=== PATIENT | male | born 1960 | race African-American/Black ===

== ENCOUNTER 2018-06-30 08:26 | Emergency (ER) | payer OTHER ==
--- OUTSIDE RECORDS SUMMARY | 2018-06-30 08:58 | XMS REPORT ---
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
--- OUTSIDE RECORDS SUMMARY | 2018-06-30 08:58 | XMS REPORT ---
:1960 Author Organization eClinicalWorks Care Team Providers Name Role Phone Malia Marcosy Provider Role Unavailable Allergies, Adverse Reactions, Alerts Substance Reaction Event Type Sulfa Rash Drug Allergy Problems Problem Type Condition Code Onset Dates Condition Status Assessment Unspecified fracture of T11-T12 S22.089K Active vertebra, subsequent encounter for fracture with nonunion Assessment Essential hypertension I10 Active Problem Essential hypertension I10 Active Problem Hyperlipidemia, unspecified E78.5 Active Problem Spinal cord injury 952.9 Active Problem Unspecified fracture of T11-T12 S22.089K Active vertebra, subsequent encounter for fracture with nonunion Problem Paralysis G83.9 Active Problem Neuropathy, peripheral G62.9 Active Problem Flaccid neuropathic bladder, 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
--- NOTE | 2018-06-30 09:41 | EDPHYS ---
Physician Documentation [facility] Name: Rogelio Pringle Age: 57 yrs Sex: Male : 1960 Arrival Date: 06/30/2018 Time: 08:30 Bed 17 Private MD: IGOR VAZ ED Physician Caleb Sauceda HPI: 06/30 09:00 This 57 yrs old Black Male presents to ER via Wheelchair with complaints of Flu pm1 Symptoms. 09:00 Onset: The symptoms/episode began/occurred 3 day(s) ago. Associated signs and symptoms: pm1 Pertinent positives: sore throat, Runny nose, Pertinent negatives: abdominal pain, chest pain, cough, fever, shortness of breath. Modifying factors: The patient symptoms are alleviated by nothing, the patient symptoms are aggravated by nothing. The patient has not recently seen a physician. Historical: - Allergies: 08:41 No Known Allergies; sv - PMHx: 08:41 Hypertension; High Cholesterol; chronic pain in BLE; sv - PSHx: 08:41 hip surgery; back surgery; sv - Immunization history:: Flu vaccine is not up to date. - Social history:: Smoking status: Patient uses tobacco products, smokes one-half pack cigarettes per day, Patient uses alcohol, on a daily basis. - Ebola Screening: : No symptoms or risks identified at this time. ROS: 09:00 Constitutional: Negative for fever, chills, and weight loss, Eyes: Negative for injury, pm1 pain, redness, and discharge. 09:00 Neck: Negative for injury, pain, and swelling, Cardiovascular: Negative for chest pain, palpitations, and edema, Respiratory: Negative for shortness of breath, cough, wheezing, and pleuritic chest pain, Abdomen/GI: Negative for abdominal pain, nausea, vomiting, diarrhea, and constipation, Back: Negative for injury and pain, : Negative for injury, bleeding, discharge, and swelling, MS/Extremity: Negative for injury and deformity, Skin: Negative for injury, rash, and discoloration, Neuro: Negative for headache, weakness, numbness, tingling, and seizure. 09:00 ENT: Positive for rhinorrhea, sore throat. Exam: 09:00 Constitutional: This is a well developed, well nourished patient who is awake, alert, pm1 and in no acute distress. Head/Face: Normocephalic, atraumatic. Eyes: Pupils equal round and reactive to light, extra-ocular motions intact. Lids and lashes normal. Conjunctiva and sclera are non-icteric and not injected. Cornea within normal limits. Periorbital areas with no swelling, redness, or edema. ENT: Nares patent. No nasal discharge, no septal abnormalities noted. Tympanic membranes are normal and external auditory canals are clear. Oropharynx with no redness, swelling, or masses, exudates, or evidence of obstruction, uvula midline. Mucous membranes moist. Neck: Trachea midline, no thyromegaly or masses palpated, and no cervical lymphadenopathy. Supple, full range of motion without nuchal rigidity, or vertebral point tenderness. No Meningismus. Chest/axilla: Normal chest wall appearance and motion. Nontender with no deformity. No lesions are appreciated. Cardiovascular: Regular rate and rhythm with a normal S1 and S2. No gallops, murmurs, or rubs. Normal PMI, no JVD. No pulse deficits. Respiratory: Lungs have equal breath sounds bilaterally, clear to auscultation and percussion. No rales, rhonchi or wheezes noted. No increased work of breathing, no retractions or nasal flaring. Abdomen/GI: Soft, non-tender, with normal bowel sounds. No distension or tympany. No guarding or rebound. No evidence of tenderness throughout. Back: No spinal tenderness. No costovertebral tenderness. Full range of motion. Skin: Warm, dry with normal turgor. Normal color with no rashes, no lesions, and no evidence of cellulitis. MS/ Extremity: Pulses equal, no cyanosis. Neurovascular intact. Full, normal range of motion. 09:00 Neuro: Orientation: is normal, Motor: moves all fours. Vital Signs: 08:41 BP 183 / 98; Pulse 88; Resp 18; Temp 98.8; Pulse Ox 98% ; Weight 77.11 kg; Height 5 ft. sv 9 in. (175.26 cm); Pain 0/10; 08:41 Body Mass Index 25.10 (77.11 kg, 175.26 cm) sv MDM: 08:36 Patient medically screened. pm1 09:37 Data reviewed: vital signs. Data interpreted: Pulse oximetry: on room air is 98 %. pm1 Interpretation: normal. Counseling: I had a detailed discussion with the patient and/or guardian regarding: the historical points, exam findings, and any diagnostic results supporting the discharge/admit diagnosis, lab results, the need for outpatient follow up, to return to the emergency department if symptoms worsen or persist or if there are any questions or concerns that arise at home. 06/30 08:44 Order name: Flu; Complete Time: 09:40 sv 06/30 08:44 Order name: Strep; Complete Time: :40 sv 06/30 09:06 Order name: Throat Culture EDMS Administered Medications: No medications were administered Disposition: 06/30/18 09:40 Discharged to Home. Impression: Acute nasopharyngitis [common cold]. - Condition is Stable. - Discharge Instructions: Antibiotic Resistance, Upper Respiratory Infection, Adult, Viral Respiratory Infection. - Medication Reconciliation Form, Thank You Letter, Antibiotic Education form. - Follow up: Emergency Department; When: As needed; Reason: Worsening of condition. Follow up: Private Physician; When: 2 - 3 days; Reason: Recheck today's complaints, Continuance of care, Re-evaluation by your physician. - Problem is new. - Symptoms have improved. Addendum: 07/16/2018 15:26 Co-signature as Attending Physician, Caleb Sauceda MD I agree with the assessment and w a plan of care. Signatures: Dispatcher [employer] EDJeanette Pastor, RN RN Jean Paul Goldstein, PRODUCTION SCHEDULER PRODUCTION SCHEDULER pm1 Caleb Sauceda MD MD nj Corrections: (The following items were deleted from the chart) 06/30 10:06 09:40 06/30/2018 09:40 Discharged to Home. Impression: Acute nasopharyngitis [common sv cold]. Condition is Stable. Forms are Medication Reconciliation Form, Thank You Letter, Antibiotic Education, Prescription Opioid Use. Follow up: Emergency Department; When: As needed; Reason: Worsening of condition. Follow up: Private Physician; When: 2 - 3 days; Reason: Recheck today's complaints, Continuance of care, Re-evaluation by your physician. Problem is new. Symptoms have improved. pm1
--- NOTE | 2018-06-30 09:41 | ER ---
Nurse's Notes [facility] Name: Rogelio Pringle Age: 57 yrs Sex: Male : 1960 Arrival Date: 06/30/2018 Time: 08:30 Bed 17 Private MD: IGOR VAZ Diagnosis: Acute nasopharyngitis [common cold] Presentation: 06/30 08:31 Presenting complaint: Patient states: sore throat, hoarse voice and decreased appetite sv since Friday. Transition of care: patient was not received from another setting of care. Onset of symptoms was June 27, 2018. Risk Assessment: Do you want to hurt yourself or someone else? Patient reports no desire to harm self or others. Initial Sepsis Screen: Does the patient meet any 2 criteria? No. Patient's initial sepsis screen is negative. Does the patient have a suspected source of infection? No. Patient's initial sepsis screen is negative. Care prior to arrival: Medication(s) given: throat lozenges and Robitussin. 08:31 Method Of Arrival: Wheelchair sv 08:31 Acuity: ROSA 4 sv Triage Assessment: 08:31 General: Appears in no apparent distress. comfortable, Behavior is calm, cooperative, sv appropriate for age. Pain: Denies pain. EENT: Reports nasal discharge pain in left aspect of posterior pharynx and right aspect of posterior pharynx. Neuro: Level of Consciousness is awake, alert, obeys commands, Oriented to person, place, time, situation. Respiratory: Respiratory effort is even, unlabored, Respiratory pattern is regular, symmetrical. Derm: Skin is pink, warm \T\ dry. Historical: - Allergies: 08:41 No Known Allergies; sv - PMHx: 08:41 Hypertension; High Cholesterol; chronic pain in BLE; sv - PSHx: 08:41 hip surgery; back surgery; sv - Immunization history:: Flu vaccine is not up to date. - Social history:: Smoking status: Patient uses tobacco products, smokes one-half pack cigarettes per day, Patient uses alcohol, on a daily basis. - Ebola Screening: : No symptoms or risks identified at this time. Screenin:42 Abuse screen: Denies threats or abuse. Denies injuries from another. Nutritional sv screening: No deficits noted. Tuberculosis screening: No symptoms or risk factors identified. Fall Risk None identified. Assessment: 09:15 Reassessment: Patient appears in no apparent distress at this time. No changes from sv previously documented assessment. Patient and/or family updated on plan of care and expected duration. Pain level reassessed. Patient is alert, oriented x 3, equal unlabored respirations, skin warm/dry/pink. Pt given a cup of water. 10:06 Reassessment: Patient appears in no apparent distress at this time. No changes from sv previously documented assessment. Patient and/or family updated on plan of care and expected duration. Pain level reassessed. Patient is alert, oriented x 3, equal unlabored respirations, skin warm/dry/pink. Vital Signs: 08:41 BP 183 / 98; Pulse 88; Resp 18; Temp 98.8; Pulse Ox 98% ; Weight 77.11 kg; Height 5 ft. sv 9 in. (175.26 cm); Pain 0/10; 08:41 Body Mass Index 25.10 (77.11 kg, 175.26 cm) sv ED Course: 08:30 Patient arrived in ED. rg4 08:30 IGOR VAZ is Private Physician. rg4 08:31 Arm band placed on Patient placed in an exam room. sv 08:35 Jean [facility] Goldstein [facility] pm1 08:35 Caleb Sauceda MD is Attending Physician. pm1 08:39 Jeanette Leach RN is Primary Nurse. sv 08:41 Triage completed. sv 08:42 Nurse Practitioner and/or Physician Customer Service Officer to see patient. sv 08:42 Patient has correct armband on for positive identification. Call light in reach. Door sv closed. 08:49 Flu and/or RSV swab sent to lab. Strep swab sent to lab. sv 10:06 No provider procedures requiring assistance completed. Patient did not have IV access sv during this emergency room visit. Administered Medications: No medications were administered Outcome: 09:40 Discharge ordered by MD. pm1 10:06 Discharged to home via wheelchair. sv 10:06 Condition: stable 10:06 Discharge instructions given to patient, Instructed on discharge instructions, follow up and referral plans. Demonstrated understanding of instructions, follow-up care. 10:06 Patient left the ED. sv Signatures: Jeanette Leach RN RN sv Jean Paul Goldstein NP PACKAGING DESIGN ENGINEER pm1 Kasandra Lauren rg4
== END 2018-06-30 10:06 | disposition home or self-care (01) ==
LOC: ER 08:26
DX: J00 Acute nasopharyngitis [common cold] (principal); I10 Essential (primary) hypertension; F17.210 Nicotine dependence, cigarettes, uncomplicated
CPT/HCPCS: 87070; 87081; 87804; 99283

== ENCOUNTER 2019-09-04 10:51 | Emergency (ER) | payer OTHER ==
--- OUTSIDE RECORDS SUMMARY | 2019-09-04 10:54 | XMS REPORT ---
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 Assessment Essential hypertension I10 Active Assessment Screening for prostate cancer Z12.5 Active Assessment Hyperlipidemia, unspecified E78.5 Active Assessment Injury at T11-T12 level of S24.104S Active thoracic spinal cord, sequela Problem Essential hypertension I10 Active Problem Hyperlipidemia, unspecified E78.5 Active Problem Injury at T11-T12 level of S24.104S Active thoracic spinal cord, sequela Problem Unspecified fracture of T11-T12 S22.089K Active vertebra, subsequent encounter for fracture with nonunion Problem Paralysis G83.9 Active Problem Neuropathy, peripheral G62.9 Active Problem Flaccid neuropathic bladder, 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 Medications Medication Code Code Instructions Start End Status Dosage System Date Date Enalapril [facility] 44767796244 20 MG Orally Active 1 tab Maleate Twice a day Gabapentin [facility] [address]-16 400 MG Orally Active 1 tablet Three times a day Pravastatin [facility] 27010547212 40 MG Orally Active take one Sodium Once a day in tablet by evening mouth once daily at bedtime Norvasc [facility] 01852387972 5 MG Orally January 28, Active 1 tablet Once a day 2018 Results No Known Results Summary Purpose eClinicalWorks Submission
--- OUTSIDE RECORDS SUMMARY | 2019-09-04 10:54 | XMS REPORT ---
:1960 Author Organization eClinicalWorks Care Team Providers Name Role Phone Nata Marcos Provider Role Unavailable Allergies No Known [...] Medications Medication Code System Code Instructions Start End Date Status Dosage Date Gabapentin [facility] 05619734637 400 MG Orally Active 1 capsule three times a day Results No Known Results Summary Purpose eClinicalWorks Submission
[2019-09-04 11:44] LABS: Absolute Lymphocytes (CBC) 1.6 K/uL (0.7-4.9); Basophils % 0.4 % (0-1.3); Hematocrit 42.4 % (39.6-49.0); Lymphocytes % 11.9 % (15.3-44.8); MPV 7.9 fL (7.6-11.3); RBC Red Blood Cell Count 4.54 M/uL (4.33-5.43)
[2019-09-04] MEDS ORDERED: NA CHLORIDE 0.9% 1,000 ML ONE (11:47)
[2019-09-04] MEDS ORDERED: ACETAMINOPHEN 500 MG TAB ONE (11:47)
[2019-09-04 11:50] LABS: BUN Blood Urea Nitrogen 8 mg/dL (7-18); Bicarbonate 27 mmol/L (21-32); Glucose Level 112 mg/dL (74-106); Potassium 3.4 mmol/L (3.5-5.1); Sodium Level 134 mmol/L (136-145)
[2019-09-04] MEDS ORDERED: CEFTRIAXONE/SWI 1gm 1 GM/10 ML SYR ONE (14:26)
[2019-09-04 14:41] LABS: Urine Bacteria LOADED /HPF (NONE SEEN); Urine Culture Reflex Order REFLEXED; Urine RBC <5 /HPF (NONE SEEN)
--- NOTE | 2019-09-04 15:38 | RAD REPORT ---
EXAM DESCRIPTION: CT - Abdomen Pelvis W Contrast - 09/04/2019 3:10 pm CLINICAL HISTORY: and pain, abdominal pain symptoms of UTI, cloudy urine COMPARISON: No comparisons TECHNIQUE: Biphasic, helical CT imaging of the abdomen and pelvis was performed following 100 ml non -ionic IV contrast. No oral contrast given. All CT scans are performed using dose optimization technique as appropriate and may include automated exposure control or mA/KV adjustment according to patient size. FINDINGS: No suspicious findings in the lung bases. The liver, spleen, and pancreas show no suspicious findings. Gallbladder and biliary tree are also wi thout suspicious finding. Symmetric renal function is seen with no hydronephrosis or suspicious renal mass. No pyelonephritis o r acute parenchymal process. No obstructing calculi seen. No adrenal abnormalities. Thickened, nodula r jose of the urinary bladder are seen. Patient may have a neurogenic bladder. Baseline for the marycarmen ent is unknown. Cystitis is certainly possible. There is no air within the urinary bladder. No dilated bowel loops or bowel wall thickening. No acute GI process is seen. Patient has a minimal h iatal hernia. No free air, free fluid or inflammatory stranding. No mass or bulky lymphadenopathy. R ight inguinal hernia is present. Bowel extends into the origin of the hernia. There is no active jose cruz l or hernia finding. The appendix is normal. No acute bone finding identifiable. IMPRESSION: Thickened nodular urinary bladder jose probably baseline. No air within the bladder lum en. Cystitis is certainly possible. No CT findings for pyelonephritis.
--- NOTE | 2019-09-04 16:12 | ER ---
Nurse's Notes [facility] Name: Rogelio Pringle Age: 58 yrs Sex: Male : 1960 Arrival Date: 09/04/2019 Time: 10:53 Bed 18 Private MD: IGOR VAZ Diagnosis: Urinary tract infection, site not specified Presentation: 09/04 11:15 Presenting complaint: Patient states: feels like he has a UTI, pt is paraplegic , self iw caths at home, noticed his urine was cloudy and had a smell over past 3-4 days, started having pain at urethral site yesterday also feels like he's got chills-. Transition of care: patient was not received from another setting of care. Onset of symptoms was August 31, 2019. Risk Assessment: Do you want to hurt yourself or someone else? Patient reports no desire to harm self or others. Initial Sepsis Screen: Does the patient meet any 2 criteria? Temp <36.0*C (96.8*F)) or > 38.3*C (100.9*F). HR > 90 bpm. Does the patient have a suspected source of infection? Yes: Dysuria/Frequency/Urgency/UTI Catheter related infection (Esparza/dialysis/PICC/central line). Care prior to arrival: None. 11:15 Method Of Arrival: Wheelchair iw 11:15 Acuity: ROSA 2 iw Historical: - Allergies: 11:21 Sulfa (Sulfonamide Antibiotics); iw - Home Meds: 11:21 gabapentin oral oral [Active]; Enalapril Oral [Active]; unknown BP medicine [Active]; iw - PMHx: 11:21 chronic pain in BLE; High Cholesterol; Hypertension; paraplegic s/p back injury; iw - PSHx: 11:21 back; iw - Immunization history:: Adult Immunizations not up to date. - Coronavirus screen:: The patient has NOT traveled to [place] in the past 14 days. Proceed with normal triage process as indicated. - Social history:: Smoking status: Patient denies any tobacco usage or history of. - Family history:: not pertinent. - Ebola Screening: : Patient negative for fever greater than or equal to 101.5 degrees Fahrenheit, and additional compatible Ebola Virus Disease symptoms Patient denies exposure to infectious person Patient denies travel to an Ebola-affected area in the 21 days before illness onset No symptoms or risks identified at this time. - Hospitalizations: : No recent hospitalization is reported. Screenin:07 Abuse screen: Denies threats or abuse. Nutritional screening: No deficits noted. rb1 Tuberculosis screening: No symptoms or risk factors identified. Fall Risk No fall in past 12 months (0 pts). Secondary diagnosis (15 points) impaired mobility, IV access (20 points). Ambulatory Aid- Crutches/Cane/Walker (15 pts). Gait- Impaired (20 pts.). Mental Status- Oriented to own ability (0 pts). Total Daven[place] Fall Scale indicates High Risk Score (45 or more points). Fall prevention measures have been instituted. Side Rails Up X 2 Placed Close to Nursing Station 1:1 Attendant Assigned Frequent Obs/Assessments Occuring As available patient and family educated on Fall Prevention Program and Strategies. Assessment: 11:07 General: Appears in no apparent distress. comfortable, Behavior is calm, cooperative, rb1 Reports chills for >3 days, Denies fever. Pain: Complains of pain in back and urethra Pain currently is 3 out of 10 on a pain scale. Neuro: Level of Consciousness is awake, alert, obeys commands, Oriented to person, place, time, situation. Cardiovascular: Capillary refill < 3 seconds is brisk in bilateral fingers. Respiratory: Airway is patent Respiratory effort is even, unlabored, Respiratory pattern is regular, symmetrical. GI: Bowel sounds present X 4 quads. Abd is non tender. : Parent/caregiver report the patient having self catheterizes at home. Pt. reports that his urine has a foul odor and is cloudy. He suspects a UTI. Derm: Skin is dry, Skin is normal, Skin temperature is hot. Musculoskeletal: Paraplegic. 12:07 Reassessment: Patient appears in no apparent distress at this time. No changes from rb1 previously documented assessment. 13:30 Reassessment: Patient appears in no apparent distress at this time. Patient and/or rb1 family updated on plan of care and expected duration. Pain level reassessed. Patient is alert, oriented x 3, equal unlabored respirations, skin warm/dry/pink. 14:37 Reassessment: Patient appears in no apparent distress at this time. Patient and/or rb1 family updated on plan of care and expected duration. Pain level reassessed. Patient is alert, oriented x 3, equal unlabored respirations, skin warm/dry/pink. Pt. is watching TV. 15:20 Reassessment: Patient appears in no apparent distress at this time. No changes from rb1 previously documented assessment. 16:20 Reassessment: Patient appears in no apparent distress at this time. Patient and/or rb1 family updated on plan of care and expected duration. Pain level reassessed. Patient is alert, oriented x 3, equal unlabored respirations, skin warm/dry/pink. Vital Signs: 11:21 BP 137 / 80; Pulse 117; Resp 18 S; Temp 102.5; Pulse Ox 98% on R/A; Weight 77.11 kg; iw Height 5 ft. 8 in. (172.72 cm); Pain 0/10; 12:20 BP 158 / 94; Pulse 109; Resp 19; Pulse Ox 99% on R/A; rb1 12:23 Temp 101.9(O); rb1 13:23 BP 146 / 87; Pulse 105; Resp 17; Pulse Ox 99% on R/A; rb1 14:23 BP 145 / 72; Pulse 103; Resp 18; Temp 98.7(O); Pulse Ox 98% ; rb1 15:20 BP 137 / 85; Pulse 101; Resp 19; Pulse Ox 99% on R/A; rb1 16:20 BP 134 / 73; Pulse 100; Resp 17; Pulse Ox 98% on R/A; rb1 11:21 Body Mass Index 25.85 (77.11 kg, 172.72 cm) iw ED Course: 10:53 Patient arrived in ED. ag5 10:54 IGOR VAZ is Private Physician. ag5 11:07 Patient has correct armband on for positive identification. Bed in low position. Call rb1 light in reach. Side rails up X2. campus monitor on. Pulse ox on. NIBP on. 11:14 Luisito Monson MD is Attending Physician. rn 11:19 Triage completed. iw 11:21 Arm band placed on. iw 11:40 Flor Kelley, RN is Primary Nurse. rb1 11:40 Second set of blood cultures drawn by ca. Inserted saline lock: 20 gauge in left em1 antecubital area, using aseptic technique. Blood collected. 15:10 CT completed. Patient tolerated procedure well. Patient moved back from CT. mw3 16:33 No provider procedures requiring assistance completed. IV discontinued, intact, rb1 bleeding controlled, No redness/swelling at site. Pressure dressing applied. Administered Medications: 11:44 Drug: Tylenol 1000 mg Route: PO; rb1 12:23 Follow up: Response: No adverse reaction; Temperature is decreased rb1 11:46 Drug: NS 0.9% 1000 ml Route: IV; Rate: 1000 ml; Site: left antecubital; rb1 14:25 Drug: Rocephin 1 grams Route: IV; Rate: calculated rate; Site: left antecubital; rb1 14:45 Follow up: Response: No adverse reaction rb1 14:29 Not Given (changed order to IVP): Rocephin - (cefTRIAXone) 1 grams IVPB once over 30 rb1 mins; (mix in 50 mL NS) Outcome: 16:10 Discharge ordered by . rn 16:33 Patient left the ED. rb1 16:33 Discharged to home via wheelchair. rb1 16:33 Condition: stable 16:33 Discharge instructions given to patient, Instructed on discharge instructions, follow up and referral plans. medication usage, Demonstrated understanding of instructions, follow-up care, medications, Prescriptions given X 1. Addendum: 09/07/2019 09:47 Addendum: Culture Results: Positive urine culture. No further action required. Bacteria h b sensitive to prescribed antibiotic. Signatures: Malorie Rojas RN RN iw Luisito Monson MD MD rn Martinez, Eric em1 Flor Kelley RN RN rb1 Reyna Cason RN RN hb Willis, Michelle mw3 Norm Sidhu ag5 Corrections: (The following items were deleted from the chart) 09/04 19:32 17:27 Patient left the ED. iw rb1
--- NOTE | 2019-09-04 16:12 | EDPHYS ---
Physician Documentation [facility] Name: Rogelio Pringle Age: 58 yrs Sex: Male : 1960 Arrival Date: 09/04/2019 Time: 10:53 Bed 18 Private MD: IGOR VAZ ED Physician Luisito Monson HPI: 09/04 11:37 This 58 yrs old Black Male presents to ER via Wheelchair with complaints of Urinary rn Problem, Abdominal Pain. 11:37 The patient reports fever, not measured (subjective). rn 11:37 Onset: The symptoms/episode began/occurred 4 day(s) ago. Modifying factors: there are rn no obvious modifying factors. Associated signs and symptoms: Pertinent negatives: chest pain, cough, diarrhea, skin rash, shortness of breath, swelling. Severity of symptoms: At their worst the symptoms were mild in the emergency department the symptoms are unchanged. The patient has experienced similar episodes in the past. Reports feels like has UTI, has to self-cath daily, reports foul smelling cloudy urine, + fever, and generalized weakness. No skin changes/cough/sob. Denies abd pain.. Historical: - Allergies: 11:21 Sulfa (Sulfonamide Antibiotics); iw - Home Meds: 11:21 gabapentin oral oral [Active]; Enalapril Oral [Active]; unknown BP medicine [Active]; iw - PMHx: 11:21 chronic pain in BLE; High Cholesterol; Hypertension; paraplegic s/p back injury; iw - PSHx: 11:21 back; iw - Immunization history:: Adult Immunizations not up to date. - Coronavirus screen:: The patient has NOT traveled to [place] in the past 14 days. Proceed with normal triage process as indicated. - Social history:: Smoking status: Patient denies any tobacco usage or history of. - Family history:: not pertinent. - Ebola Screening: : Patient negative for fever greater than or equal to 101.5 degrees Fahrenheit, and additional compatible Ebola Virus Disease symptoms Patient denies exposure to infectious person Patient denies travel to an Ebola-affected area in the 21 days before illness onset No symptoms or risks identified at this time. - Hospitalizations: : No recent hospitalization is reported. ROS: 11:37 Constitutional: + fever Eyes: Negative for injury, pain, redness, and discharge, Neck: rn Negative for injury, pain, and swelling, Cardiovascular: Negative for chest pain, palpitations, and edema, Respiratory: Negative for shortness of breath, cough, wheezing, and pleuritic chest pain, Abdomen/GI: Negative for vomiting, diarrhea, and constipation, MS/Extremity: Negative for injury and deformity, Skin: Negative for injury, rash, and discoloration, Neuro: Negative for headache, numbness, tingling, and seizure. Exam: 12:01 Constitutional: This is a well developed, well nourished patient who is awake, alert, rn and in no acute distress. Head/Face: Normocephalic, atraumatic. ENT: dry MM Neck: Trachea midline, no thyromegaly or masses palpated, and no cervical lymphadenopathy. Supple, full range of motion without nuchal rigidity, or vertebral point tenderness. No Meningismus. Cardiovascular: Tachycardic, regular Respiratory: No increased work of breathing, no retractions or nasal flaring. Abdomen/GI: soft, non-tender MS/ Extremity: Pulses equal, no cyanosis. Neuro: Awake and alert, GCS 15, oriented to person, place, time, and situation. Vital Signs: 11:21 BP 137 / 80; Pulse 117; Resp 18 S; Temp 102.5; Pulse Ox 98% on R/A; Weight 77.11 kg; iw Height 5 ft. 8 in. (172.72 cm); Pain 0/10; 12:20 BP 158 / 94; Pulse 109; Resp 19; Pulse Ox 99% on R/A; rb1 12:23 Temp 101.9(O); rb1 13:23 BP 146 / 87; Pulse 105; Resp 17; Pulse Ox 99% on R/A; rb1 14:23 BP 145 / 72; Pulse 103; Resp 18; Temp 98.7(O); Pulse Ox 98% ; rb1 15:20 BP 137 / 85; Pulse 101; Resp 19; Pulse Ox 99% on R/A; rb1 16:20 BP 134 / 73; Pulse 100; Resp 17; Pulse Ox 98% on R/A; rb1 11:21 Body Mass Index 25.85 (77.11 kg, 172.72 cm) iw MDM: 11:14 Patient medically screened. rn 13:04 ED course: Delay due to still no urine sample obtained and is most likely cause of rn symptoms. . 14:48 ED course: delay with orders not crossing over. rn 16:09 Differential diagnosis: viral Infection, bacterial infection, UTI. Data reviewed: vital rn signs, nurses notes, lab test result(s), radiologic studies, CT scan, and as a result, I will discharge patient. Counseling: I had a detailed discussion with the patient and/or guardian regarding: the historical points, exam findings, and any diagnostic results supporting the discharge/admit diagnosis, lab results, radiology results, the need for outpatient follow up, to return to the emergency department if symptoms worsen or persist or if there are any questions or concerns that arise at home. Response to treatment: the patient's symptoms have markedly improved after treatment, and as a result, I will discharge patient. Special discussion: I discussed with the patient/guardian in detail that at this point there is no indication for admission to the hospital. It is understood, however, that if the symptoms persist or worsen the patient needs to return immediately for re-evaluation. 09/04 11:20 Order name: CBC with Diff rn 09/04 11:20 Order name: Urine Culture rn 09/04 11:20 Order name: Urine Microscopic Only rn 09/04 11:20 Order name: Blood Culture Adult (2) rn 09/04 11:20 Order name: Procalcitonin rn 09/04 11:20 Order name: Lactate rn 09/04 11:20 Order name: Basic Metabolic Panel rn 09/04 11:50 Order name: CBC with Automated Diff; Complete Time: 12:59 EDFL 09/04 11:50 Order name: Basic Metabolic Panel; Complete Time: 12:59 EDFL 09/04 11:54 Order name: Lactate; Complete Time: 12:59 EDFL 09/04 12:21 Order name: Procalcitonin; Complete Time: 12:59 EDFL 09/04 13:55 Order name: CT Abd/Pelvis - IV Contrast Only rn 09/04 14:17 Order name: Urine Dipstick--Ancillary (enter results) ms 09/04 14:49 Order name: Urine Microscopic Only; Complete Time: 16:08 EDFL 09/04 11:20 Order name: IV Start; Complete Time: 11:43 rn 09/04 11:20 Order name: Urine Dipstick-Ancillary (obtain specimen); Complete Time: 14:30 rn 09/04 16:01 Order name: CT; Complete Time: 16:08 EDMS Administered Medications: 11:44 Drug: Tylenol 1000 mg Route: PO; rb1 12:23 Follow up: Response: No adverse reaction; Temperature is decreased rb1 11:46 Drug: NS 0.9% 1000 ml Route: IV; Rate: 1000 ml; Site: left antecubital; rb1 14:25 Drug: Rocephin 1 grams Route: IV; Rate: calculated rate; Site: left antecubital; rb1 14:45 Follow up: Response: No adverse reaction rb1 14:29 Not Given (changed order to IVP): Rocephin - (cefTRIAXone) 1 grams IVPB once over 30 rb1 mins; (mix in 50 mL NS) Disposition: 09/04/19 16:10 Discharged to Home. Impression: Urinary tract infection, site not specified. - Condition is Stable. - Discharge Instructions: Urinary Tract Infection, Adult. - Prescriptions for cefpodoxime 100 mg Oral Tablet - take 2 tablet by ORAL route every 12 hours for 10 days take with food; 40 tablet. - Medication Reconciliation Form, Thank You Letter, Antibiotic Education, Prescription Opioid Use form. - Follow up: Private Physician; When: As needed; Reason: Recheck today's complaints, Re-evaluation by your physician. - Problem is new. - Symptoms have improved. Signatures: Dispatcher [employer] EDMalorie Ohara RN RN iw Nieto, Roman, MD MD rn Barber, Rebecca, RN RN rb1 Corrections: (The following items were deleted from the chart) 17:27 16:10 09/04/2019 16:10 Discharged to Home. Impression: Urinary tract infection, site iw not specified. Condition is Stable. Forms are Medication Reconciliation Form, Thank You Letter, Antibiotic Education, Prescription Opioid Use. Follow up: Private Physician; When: As needed; Reason: Recheck today's complaints, Re-evaluation by your physician. Problem is new. Symptoms have improved. rn
[2019-09-04 17:44] VITALS: TEMP 98.7
[2019-09-04 17:47] VITALS: BP 134/73; O2SAT 98
[2019-09-04 20:38] LABS: Urine Blood 2+ (NEG); Urine Glucose NEGATIVE (NEG); Urine Protein 2+ (NEG); Urine pH 5.5 (5.0-7.0)
== END 2019-09-04 17:27 | disposition home or self-care (01) ==
LOC: ER 10:51
DX: N39.0 Urinary tract infection, site not specified (principal); I10 Essential (primary) hypertension; E78.00 Pure hypercholesterolemia, unspecified; Z88.2 Allergy status to sulfonamides
CPT/HCPCS: 87040 ×2; 87088; 85025; 87086; 80048; 36415; 87205; 83605; 87077 ×2; 87186 ×2; 84145; 74177; 96374; 99285; Q9967; J0696; J7030; 81003; 81015

== ENCOUNTER 2020-12-15 06:59 | Emergency (ER) | payer OTHER ==
--- OUTSIDE RECORDS SUMMARY | 2020-12-15 07:02 | XMS REPORT | Continuity of Care Document ---
:1960 Author Organization [facility] t Address [address] [place] [address] Care Team Providers Name Role Phone Mari Zavaleta Jr Attending Clinician Physician, Associated Attending Clinician Unavailable Problems Condition Condition Condition Status Onset Resolution Last Treating Co mments Source Name Details Category Date Date Treatment Clinician Date AVASCULAR Diagnosis Active 2017-072018-09-01 Memoria AREA OF 1-06 11:49:00 l LEFT 00:00: [place] CORTEX AVASCULAR 00 AREA OF LEFT CORTEX Active 05/19/2018 [facility] Diagnosis Active 2016-072017-06-17 Mem oria 07-26 10:04:00 l ` 00:00: Jordin 00 Active 05/26/2017 [facility] NEUROGENIC Diagnosis Active 2015-072017-05-26 Memoria BLADDER 1-16 09:35:00 l 00:00: [place] NEUROGENIC 00 BLADDER Active 05/29/2016 [facility] 1 YEAR F/U Diagnosis Active 2014-072016-06-07 Memoria 0-15 10:48:00 l 1 YEAR 00:00: [place] F/U 00 Active 04/27/2015 [facility] F/U Diagnosis Active 2014-04-25 Mem oria 02-22 11:51:00 l F/U 00:00: [place] 00 Active 02/22/2013 [facility] FU Diagnosis Active 2011-09-02 Mem oria 08-13 10:04:00 l FU 00:00: Jordin 00 Active 08/13/2011 [facility] EVALUATION Diagnosis Active 2011-10-16 Memoria 08-13 08:47:00 l 00:00: Jordin EVALUATION 00 Active 08/13/2011 [facility] WHEELCHAIR Diagnosis Active 2015-09-19 Memoria FINAL 07-14 11:39:00 l FITTING 00:00: Jordin WHEELCHAIR 00 FINAL FITTING Active 07/14/2000 [facility] MANUAL Diagnosis Active 2015-06-16 Mem oria WHEELCHAIR 07-14 09:56:00 l EVAL MANUAL 00:00: [place] WHEELCHAIR 00 EVAL Active 07/14/2000 [facility] Neurogenic Problem Active 2018-12-06 M emoria bladder 09-11 12:47:33 l (finding) 00:00: Jordin Neurogenic 00 bladder (finding) Active 09/11/1977 Problem 12/06/2018 [facility] Neurogenic Problem Active 2018-12-06 M emoria bowel 09-11 12:47:33 l (disorder) 00:00: Paxton bajwa Neurogenic 00 bowel (disorder) Active 09/11/1977 Problem 12/06/2018 [facility] Spinal Problem Active 2018-12-06 Memor ia cord 09-11 12:47:33 l injury Spinal 00:00: Jordin (disorder) cord 00 injury (disorder) Active 09/11/1977 Problem 12/06/2018 [facility] Neurogenic Problem Active 2013-04-07 M emoria bladder 09-11 20:12:35 l 00:00: [place] Neurogenic 00 bladder Active 09/11/1977 Problem 04/07/2013 1ICP Q 4 HR [facility] NEUORGENIC Diagnosis Active 2015-06-03 Memoria BLADDER 09-11 16:35:00 l 00:00: Jordin NEUORGENIC 00 BLADDER Active 09/11/1977 [facility] NEUROGENIC Diagnosis Active 2018-10-05 Memoria BLADDER/RE 09-11 09:54:00 l TENTION/AV 00:00: Paxton bajwa ASCULAR A NEUROGENIC 00 BLADDER/RE TENTION/AV ASCULAR A Active 09/11/1977 [facility] NEUROGENIC Diagnosis Active 2018-06-26 Memoria BLADDER/RE 09-11 14:17:00 l TENTION 00:00: [place] NEUROGENIC 00 BLADDER/RE TENTION Active 09/11/1977 [facility] High blood Problem Resolve 2013-04-07 Memoria pressure d 20:12:35 l High Jordin blood pressure Resolved Problem 04/07/2013 [facility] Neurogenic Problem Resolve 2013-04-07 Memoria bowel d 20:12:35 l Jordin Neurogenic bowel Resolved Problem 04/07/2013 [facility] Spinal Problem Resolve 2013-04-07 Shar megha cord d 20:12:35 l injury Spinal Jordin cord injury Resolved Problem 04/07/2013 [facility] Hypertensi Problem Active 2018-12-06 M emoria ve 12:47:33 l disorder, [place] systemic Hypertensi arterial ve (disorder) disorder, systemic arterial (disorder) Active Problem 12/06/2018 [facility] FOLLOW-UP Diagnosis Active 2015-04-10 Memoria EXAM NOS 11:15:00 l [place] FOLLOW-UP EXAM NOS Active [facility] NEUROGENIC Diagnosis Active 2015-04-10 Memoria BLADDER 11:15:00 l NOS Jordin NEUROGENIC BLADDER NOS Active [facility] RETENTION Diagnosis Active 2015-04-10 Memoria OF URINE 11:08:00 l NOS [place] RETENTION OF URINE NOS Active [facility] NEUROMUSCU Diagnosis Active 2018-10-05 Memoria LAR 09:54:00 l DYSFUNCTIO Paxton n N OF NEUROMUSCU BLADDER, LAR UN DYSFUNCTIO N OF BLADDER, UN Active [facility] ENCNTR FOR Diagnosis Active 2015-04-24 Memoria F/U EXAM 09:06:00 l AFT TRTMT ENCNTR [place] FOR COND O FOR F/U EXAM AFT TRTMT FOR COND O Active [facility] RETENTION Diagnosis Active 2018-10-05 Memoria OF URINE, 09:54:00 l UNSPECIFIE Paxton n D RETENTION OF URINE, UNSPECIFIE D Active [facility] PARAPLEGIA Diagnosis Active 2015-09-19 Memoria , 11:39:00 l UNSPECIFIE Paxton n D PARAPLEGIA , UNSPECIFIE D Active [facility] Allergies, Adverse Reactions, Alerts Allergy Allergy Status Severity Reaction(s) Onset Inactive Treating Comm ents Source Name Type Date Date Clinician Sulfa Adverse Active Rash [facility] Bactrim Bactrim Active Memoria l Jordin sulfa sulfa Active Memoria drugs drugs l [place] Social History Social Habit Start Date Stop Date Quantity Comments Source Social History 2016-05-24 2016-05-24 [facility] pooja 16:27:27 16:27:27 Medications Ordered Filled Start Stop Current Ordering Indication Dosage Frequency Signature Comments Components Source Medication Medication Date Date Medication? Clinician (SIG) Name Name Amaadol Yes Notes: Memoria -19 (Same l 17:28: as:Omnipaq Jordin 00 ue 300). WASTE: F/P - Black; E - [facility] sildenafil Yes See Memoria 100 MG Oral 6-12 Instructio l Tablet 16:02: ns, Jordin [Viagra] 09 2-07/17 tab po daily prn; Faxed [facility] [phone] per protocol Dr. Zavaleta, # 3 tab, 5 Refill(s), called to pharmacy [facility] 2016-07 Yes Notes: Memori a 300 - (Same l 16:14: as:Omnipaq Jordin 00 ue 300). WASTE: F/P - Black; E - [facility] sildenafil 2014-07 Yes See Memoria 100 MG Oral 1-30 Instructio l Tablet 21:48: ns, Jordin [Viagra] 00 2-07/17 tab po daily prn, # 3 tab, 5 Refill(s), Pharmacy: [id number] sildenafil 2014-07 Yes 25 mg = 1 Me moria 25 MG Oral 0-07 tab, PO, l Tablet 18:30: PRN, 0 [place] [Viagra] 00 Refill(s) Pravastatin Pravastatin Yes Nata take one [facility] Sodium Sodium [place] tablet by [facility] - mouth once [facility] daily at l [facility] Gabapentin Gabapentin Yes Nata [address] [facility] Enalapril Enalapril Yes Nata [address] [facility] Maleate [facility]ate [place] [facility] Vital Signs Vital Name Observation Time Observation Value Comments Source Weight 2018-10-05 15:09:00 Reema Brenner BMI Calculated 2018-10-05 15:09:00 Elly Neil Height 2018-10-05 15:09:00 172.72 cm Reema Brenner Respitory Rate 2018-10-05 15:09:00 Elly Neil Heart Rate 2018-10-05 15:09:00 [facility] Height 2018-09-01 19:26:00 172.72 cm [facility] BMI Calculated 2018-09-01 19:26:00 [facility] al Jordin Weight 2018-09-01 19:26:00 [facility] [place] Systolic (mm Hg) 2018-09-01 19:26:00 Shar rial Jordin Diastolic (mm Hg) 2018-09-01 19:26:00 Mem orial [place] Temperature Oral (F) 2018-09-01 19:26:00 98.8 F [facility] [place] Heart Rate 2018-09-01 19:26:00 [facility] [place] Weight 2017-05-26 15:53:00 [facility] [place] Height 2017-05-26 15:53:00 175.26 cm [facility] [place] BMI Calculated 2017-05-26 15:53:00 [facility] al [place] Systolic (mm Hg) 2017-05-26 15:53:00 Shar rial [place] Diastolic (mm Hg) 2017-05-26 15:53:00 Mem orial [place] Respitory Rate 2017-05-26 15:53:00 [facility] al [place] Heart Rate 2017-05-26 15:53:00 [facility] [place] BMI Calculated 2017-05-20 17:24:00 [facility] al [place] Weight 2017-05-20 17:24:00 [facility] [place] Height 2017-05-20 17:24:00 175.26 cm [facility] [place] Heart Rate 2017-05-20 17:24:00 [facility] Respitory Rate 2017-05-20 17:24:00 [facility] al Jordin Temperature Oral (F) 2017-05-20 17:24:00 98.3 F [facility] [place] Systolic (mm Hg) 2017-05-20 17:24:00 Shar rial [place] Diastolic (mm Hg) 2017-05-20 17:24:00 Mem orial Jordin Systolic (mm Hg) 2016-05-29 15:35:00 Shar rial Jordin Diastolic (mm Hg) 2016-05-29 15:35:00 Mem orial [place] Respitory Rate 2016-05-29 15:35:00 [facility] al Jordin Heart Rate 2016-05-29 15:35:00 [facility] Jordin BMI Calculated 2016-05-29 15:35:00 [facility] al [place] Height 2016-05-29 15:35:00 172.72 cm [facility] [place] Weight 2016-05-29 15:35:00 [facility] [place] BMI Calculated 2016-05-24 16:27:00 Memori al Jordin Weight 2016-05-24 16:27:00 [facility] Height 2016-05-24 16:27:00 172.72 cm [facility] Systolic (mm Hg) 2016-05-24 16:27:00 Shar rial Jordin Diastolic (mm Hg) 2016-05-24 16:27:00 Mem orial [place] Heart Rate 2016-05-24 16:27:00 [facility] [place] Temperature Oral (F) 2016-05-24 16:27:00 98 F [facility]ordin Heart Rate 2015-09-19 17:42:00 [facility] [place] Systolic (mm Hg) 2015-09-19 17:42:00 Shar rial [place] Diastolic (mm Hg) 2015-09-19 17:42:00 Mem orial Jordin Height 2015-06-16 15:36:00 172.72 cm [facility] [place] Systolic (mm Hg) 2015-06-16 15:36:00 Shar rial Jordin Diastolic (mm Hg) 2015-06-16 15:36:00 Mem orial Jordin Heart Rate 2015-06-16 15:36:00 [facility] [place] Weight 2015-06-16 15:36:00 [facility] Jordin BMI Calculated 2015-06-16 15:36:00 Memori al [place] Weight 2015-04-24 14:53:00 [facility] Height 2015-04-24 14:53:00 175.26 cm [facility] [place] BMI Calculated 2015-04-24 14:53:00 [facility] al [place] Heart Rate 2015-04-24 14:53:00 [facility] [place] Respitory Rate 2015-04-24 14:53:00 Memori al Jordin Systolic (mm Hg) 2015-04-24 14:53:00 Shar rial [place] Diastolic (mm Hg) 2015-04-24 14:53:00 Mem orial Jordin Height 2015-04-19 18:40:00 172.72 cm [facility] [place] Systolic (mm Hg) 2015-04-19 18:40:00 Shar rial [place] Diastolic (mm Hg) 2015-04-19 18:40:00 Mem orial [place] BMI Calculated 2015-04-19 18:40:00 [facility] al Jordin Weight 2015-04-19 18:40:00 [facility] [place] Temperature Oral (F) 2015-04-19 18:40:00 98.2 F [facility] Heart Rate 2015-04-19 18:40:00 [facility] Heart Rate 2014-05-02 15:00:00 [facility] Respitory Rate 2014-05-02 15:00:00 Mem[facility] al [place] Diastolic (mm Hg) 2014-05-02 15:00:00 Mem orial Jordin Systolic (mm Hg) 2014-05-02 15:00:00 Shar rial Jordin Height 2014-05-02 15:00:00 172.72 cm [facility] Weight 2014-05-02 15:00:00 [facility] BMI Calculated 2014-05-02 15:00:00 [facility] al [place] Systolic (mm Hg) 2014-04-25 23:39:00 Shar rial Jordin Diastolic (mm Hg) 2014-04-25 23:39:00 Mem orial [place] Temperature Oral (F) 2014-04-25 23:39:00 98.5 F [facility] Heart Rate 2014-04-25 23:39:00 [facility] [place] Respitory Rate 2014-04-25 23:39:00 Memori al Jordin Height 2014-04-25 23:39:00 170.18 cm [facility] BMI Calculated 2014-04-25 23:39:00 [facility] al [place] Weight 2014-04-25 23:39:00 [facility] [place] Systolic (mm Hg) 2013-04-05 16:03:00 Shar rial [place] Diastolic (mm Hg) 2013-04-05 16:03:00 Mem orial [place] Heart Rate 2013-04-05 16:03:00 [facility] Jordin Respitory Rate 2013-04-05 16:03:00 Memori al Jordin Temperature Oral (F) 2013-04-05 16:03:00 98.8 F [facility] Weight 2013-04-05 16:03:00 [facility] [place] Height 2013-04-05 16:03:00 172.72 cm [facility] Weight 2013-02-22 14:32:00 [facility] [place] Height 2013-02-22 14:32:00 172.72 cm [facility] [place] Respitory Rate 2013-02-22 14:32:00 Memori al [place] Heart Rate 2013-02-22 14:32:00 [facility] [place] Temperature Oral (F) 2013-02-22 14:32:00 99.1 F [facility]ordin Systolic (mm Hg) 2013-02-22 14:32:00 Shar rial Jordin Diastolic (mm Hg) 2013-02-22 14:32:00 Mem orial [place] Systolic (mm Hg) 2011-09-02 16:39:00 Shar rial Jordin Respitory Rate 2011-09-02 16:39:00 Memori al Jordin Heart Rate 2011-09-02 16:39:00 [facility] [place] Diastolic (mm Hg) 2011-09-02 16:39:00 Mem orial [place] Procedures Procedure Date / Time Performed Performing Clinician Trena bacon [facility]G - Cystometrogram 2018-09-01 06:00:00 Memoria l Jordin CMG - Cystometrogram 2013-04-05 05:00:00 Roderick Zavaleta [facility] [place] [facility] Hip arthroplasty [facility] n [facility] Hip arthroplasty [facility] n Encounters Start End Encounter Admission Attending Care Care Encounter Source Date/Time Date/Time Type Type Clinicians Facility Department ID 2020-12-05 2020-12-05 Outpatient [facility] [id number] [facility] 2020-05-11 2020-05-11 Outpatient [facility] [id number] [facility] 2020-04-19 2020-04-19 Outpatient [facility] [id number] [facility] 2020-04-17 2020-04-17 Outpatient [facility] [id number] [facility] 2019-12-20 2019-12-20 [facility] [id number] [facility] 09:10:00 09:10:00 [facility] Medicine Outpati ent Clinics 2019-11-02 2019-11-02 [facility] [id number] [facility] 08:53:00 08:53:00 t [facility] Medicine Medicine Outpati ent Clinics 2019-10-21 2019-10-21 [facility] [id number] [facility] 10:11:00 10:11:00 [facility] l Medicine Outpati ent Clinics 2019-10-14 2019-10-14 [facility] [id number] [facility] 15:44:00 15:44:00 t Specialty/U Olinda kes - Specialty rology [facility]rology [facility] l Clinic Outpati ent Clinics 2019-10-05 2019-10-05 [facility] [id number] [facility] 13:30:00 13:30:00 t Specialty/U Olinda kes - Specialty rology Mem[facility] a /Urology Clinic l Clinic Outpati ent Clinics 2019-09-16 2019-09-16 [facility] [id number] [facility] 14:00:00 14:00:00 t Specialty[facility] 2019-09-08 2019-09-08 [facility] [id number] [facility] 09:40:00 09:40:00 t [facility] Medicine Outpati ent Clinics 2019-08-27 2019-08-27 [facility] [id number] [facility] 14:26:00 14:26:00 t [facility] Medicine Outpati ent Clinics 2019-03-03 2019-03-03 [facility] [id number] [facility] 13:00:00 13:00:00 t [facility] Medicine l Medicine Outpati ent Clinics 2019-01-28 2019-01-28 [facility] [id number] [facility] 11:20:00 11:20:00 [facility] l Medicine Outpati ent Clinics 2018-10-05 2018-10-05 Outpatient ARMOND Zavaleta [facility] [id number] 09:45:00 23:59:00 Roderick Liu 2018-09-04 2018-09-04 [facility] [id number] [facility] 11:30:00 11:30:00 [facility] Outpati ent Clinics 2018-09-01 2018-09-01 Outpatient Meghann, [facility] [id number] 11:47:00 23:59:00 Roderick E 24 2018-08-28 2018-08-28 [facility] [id number] [facility] 09:34:00 09:34:00 [facility] Outpati ent Clinics 2018-05-19 2018-05-19 Outpatient Meghann, [facility] [id number] 10:00:00 10:00:00 Roderick E 22 2018-03-19 2018-03-19 [facility] [id number] [facility] 16:52:00 16:52:00 [facility] Outpati ent Clinics 2018-03-05 2018-03-05 [facility] [id number] [facility] 11:00:00 11:00:00 [facility] Outpati ent Clinics 2017-06-17 2017-06-17 Outpatient Meghann, [facility] M[facility] [id number] 09:52:00 23:59:00 Roderick E 21 2017-05-26 2017-05-26 Outpatient Meghann, [facility] [id number] 09:33:00 23:59:00 Roderick E 19 2017-05-20 2017-05-20 Outpatient Meghann, [facility] [id number] 08:55:00 23:59:00 Roderick E 20 2016-05-29 2016-05-29 Outpatient Meghann, [facility] [id number] 09:21:00 23:59:00 Roderick E 17 2016-05-24 2016-05-24 Outpatient Meghann, [facility] [id number] 09:09:00 23:59:00 Roderick E 18 2015-09-19 2015-10-18 Outpatient Physician [facility] [id number] 08:00:00 23:59:00 Non 01 Associated 2015-06-16 2015-07-15 [id number] 08:00:00 23:59:00 Non 00 Associated 2015-04-24 2015-04-24 Out[facility] Bertini, [facility] [id number] 09:05:00 23:59:00 Roderick Bacon 14 2015-04-19 2015-04-19 Outpatient Meghann, [facility] [id number] 10:40:00 23:59:00 Roderick Bacon 12 2014-05-02 2014-05-02 Outpatient Meghann, [facility] [id number] 09:36:00 23:59:00 Roderick Bacon 11 2014-04-25 2014-04-25 Outpatient Meghann, [facility] [id number] 11:50:00 23:59:00 Roderick Bacon 10 Results Test Description Test Time Test Comments Results Result Comments Source CHEM PANEL 2018-09-01 128 [facility] [place] [facility] 17:25:00 CHEM PANEL 2018-09-01 0.6 [facility] [place] 17:25:00 CHEM PANEL 2017-06-17 121 [facility] [place] 16:16:00 CHEM PANEL 2017-06-17 0.7 [facility] [place] 16:16:00 CHEM PANEL 2017-05-26 120 [facility] [place] 16:20:00 CHEM PANEL 2017-05-26 0.71 [facility] [place] 16:20:00 CHEM PANEL 2015-04-24 0.8 [facility] [place] 15:06:00 CHEM PANEL 2015-04-24 116 [facility] [place] 15:06:00 CHEM PANEL 2014-05-02 0.7 [facility] [place] 15:35:00 CHEM PANEL 2014-05-02 124 [facility] [place] 15:35:00 CHEMISTRY 2013-02-22 125 [facility] [place] 14:45:00 CHEMISTRY 2013-02-22 0.7 [facility] [place] 14:45:00 CHEMISTRY 2013-02-22 1.12 [facility] [place] 14:45:00 CHEMISTRY 2011-09-02 0.82 [facility] [place] [facility] 21:19:00 CHEMISTRY 2011-09-02 620 [facility] [place] [facility] 21:19:00
[2020-12-15] MEDS ORDERED: MORPHINE 4 MG/ML SYR ONE (07:53)
[2020-12-15] MEDS ORDERED: ONDANSETRON 4 MG/2 ML VIAL ONE (07:53)
--- NOTE | 2020-12-15 08:40 | RAD REPORT ---
EXAM DESCRIPTION: CT - Abdomen Pelvis Wo Contrast - 12/15/2020 8:13 am CLINICAL HISTORY: Left hip pain , fall, history of diarrhea, history of paraplegia due to back injury COMPARISON: Abdomen Pelvis W Contrast dated 09/04/2019 TECHNIQUE: Axial [address] imaging of the abdomen and pelvis was performed without IV contrast. No IV contrast was given because of allergy, abnormal renal function, patient refusal or physician re quest. No oral contrast administered. All CT scans are performed using dose optimization technique as appropriate and may include automated exposure control or mA/KV adjustment according to patient size. FINDINGS: No suspicious findings in the lung bases. The liver, spleen and pancreas show no suspicious findings on non-contrast imaging. Gallbladder and b iliary tree are also without suspicious finding. No hydronephrosis or suspicious renal mass. No significant adrenal finding. Isodense renal masses an d pyelonephritis cannot be excluded in the absence of IV contrast. Urinary bladder jose are thickene d without asymmetric wall thickening or mass. This pattern has been seen previously. No bladder calcu elias. Prostate gland and seminal vesicles are stable. No dilated bowel loops or bowel wall thickening. Appendix is normal. No active GI process evident on this study. No peritoneal or retroperitoneal free air, free fluid or stranding. No hernia, mass or bu lky lymphadenopathy. Spinal degenerative and postsurgical changes are present. Rods are in place spanning approximately T1 0-L3. Postsurgical changes at the T12-L1 level not clearly different from August 2019. There is com plete atrophy of the right pelvic skeletal musculature. Postsurgical changes are present to the proxi mal right femur. Right sandra pelvis is osteopenic when relative to the left. Patient has a comminuted fracture of the proximal left femur. No fracture or dislocation of the head. There is a fracture involving the base of the neck and an additional transverse fracture plane at th e trochanteric - shaft junction. There are innumerable fracture fragments present in the intertrochan teric region. Greater trochanter is a free fragment with numerous fragments. Lesser trochanter remain s attached to the head and neck portion of the fracture. There are hematoma changes seen in the inter trochanteric fracture region. There is more fragmentation than usually seen with fall related fractur e. No gross evidence for pathologic destruction. IMPRESSION: Comminuted proximal left femur fracture with transverse fracture plane through the base of the neck, transverse fracture through the trochanteric -shaft junction and innumerable fracture fr agments of the intertrochanteric region. There are hematoma changes in the intertrochanteric fracture region and some general edema surroundin g the fracture. This is more fragmented than typically seen with fall related injury. However, no def initive evidence for a pathologic process. Left hemipelvis is intact. There are remodeling changes from old fracture but no acute left hemipelvi s finding. No traumatic injury otherwise noted. Full assessment is limited is the absence of IV contrast.
--- NOTE | 2020-12-15 08:58 | RAD REPORT ---
EXAM DESCRIPTION: RAD - Hip Left 2 View - 12/15/2020 8:32 am CLINICAL HISTORY: PAINleft hip secondary to fall COMPARISON: No comparisons FINDINGS: AP and cross-table lateral views of the left hip were obtained. No acute fracture of the left hemipelvis. Remodeling changes are present from prior superior and infe rior rami fractures. Right sandra pelvis is osteopenic relative to the left. Prior CT imaging showed co mplete atrophy of the right pelvic skeletal musculature. There is a comminuted fracture centered in the intertrochanteric region of the left femur. There is a transverse fracture at the femoral neck -trochanteric junction and an additional transverse fracture of the trochanteric -shaft junction. Greater trochanter is a free fracture fragment. There are numer ous small fracture fragments seen in the soft tissues adjacent to the fracture zone. Fracture is more comminuted than typically seen with a fall related injury. However, no perico bone destructive change s seen that would elevate probability of pathologic component. No large soft tissue mass or hematoma identifiable. IMPRESSION: Comminuted left femur fracture centered in the intertrochanteric region as detailed.
[2020-12-15] MEDS ORDERED: NA CHLORIDE 0.9% 500 ML ONE (09:49)
--- NOTE | 2020-12-15 10:27 | EDPHYS ---
Physician Documentation [facility] Name: Rogelio Pringle Age: 59 yrs Sex: Male : 1960 Arrival Date: 12/15/2020 Time: 07:18 Bed 28 Private MD: ED Physician Alonzo Gonzalez HPI: 12/15 07:34 This 59 yrs old Black Male presents to ER via EMS with complaints of Fall Injury. kdr 07:34 Details of fall: The patient fell from a height, Wheel chair, from seated position, out kdr of a chair, out of a wheelchair. Onset: The symptoms/episode began/occurred suddenly, just prior to arrival, this morning. Associated injuries: The patient sustained Left hip. Severity of symptoms: At their worst the symptoms were mild, in the emergency department the symptoms are unchanged. The patient has not experienced similar symptoms in the past. The patient has not recently seen a physician. Historical: - Allergies: 07:26 Sulfa (Sulfonamide Antibiotics); ph - Home Meds: 07:26 unknown BP medicine [Active]; gabapentin Oral [Active]; amlodipine oral [Active]; ph - PMHx: 07:26 chronic pain in BLE; High Cholesterol; Hypertension; paraplegic s/p back injury; ph - Immunization history:: Adult Immunizations unknown. - Immunization history: Last tetanus immunization: unknown. - Social history:: Smoking status: unknown. ROS: 07:34 Constitutional: Negative for fever, chills, and weight loss, Eyes: Negative for injury, kdr pain, redness, and discharge, ENT: Negative for injury, pain, and discharge, Neck: Negative for injury, pain, and swelling, Cardiovascular: Negative for chest pain, palpitations, and edema, Respiratory: Negative for shortness of breath, cough, wheezing, and pleuritic chest pain, Abdomen/GI: Negative for abdominal pain, nausea, vomiting, diarrhea, and constipation, Back: Negative for injury and pain, : Negative for injury, bleeding, discharge, and swelling, Skin: Negative for injury, rash, and discoloration, Neuro: Negative for headache, weakness, numbness, tingling, and seizure activity. Psych: Negative for depression, anxiety, suicide ideation, homicidal ideation, and hallucinations, Allergy/Immunology: Negative for hives, rash, and allergies, Endocrine: Negative for neck swelling, polydipsia, polyuria, polyphagia, and marked weight changes, Hematologic/Lymphatic: Negative for swollen nodes, abnormal bleeding, and unusual bruising. 07:34 MS/extremity: Positive for injury or acute deformity, decreased range of motion, pain, tenderness, of the left femoral area and left hip. Exam: 07:34 Constitutional: This is a well developed, well nourished patient who is awake, alert, kdr and in no acute distress. Head/Face: Normocephalic, atraumatic. Eyes: Pupils equal round and reactive to light, extra-ocular motions intact. Lids and lashes normal. Conjunctiva and sclera are non-icteric and not injected. Cornea within normal limits. Periorbital areas with no swelling, redness, or edema. Neck: Trachea midline, no thyromegaly or masses palpated, and no cervical lymphadenopathy. Supple, full range of motion without nuchal rigidity, or vertebral point tenderness. No Meningismus. Chest/axilla: Normal chest wall appearance and motion. Nontender with no deformity. No lesions are appreciated. Cardiovascular: Regular rate and rhythm with a normal S1 and S2. No gallops, murmurs, or rubs. Normal PMI, no JVD. No pulse deficits. Respiratory: Lungs have equal breath sounds bilaterally, clear to auscultation and percussion. No rales, rhonchi or wheezes noted. No increased work of breathing, no retractions or nasal flaring. Abdomen/GI: Soft, non-tender, with normal bowel sounds. No distension or tympany. No guarding or rebound. No evidence of tenderness throughout. Back: No spinal tenderness. No costovertebral tenderness. Full range of motion. Skin: Warm, dry with normal turgor. Normal color with no rashes, no lesions, and no evidence of cellulitis. Neuro: Awake and alert, GCS 15, oriented to person, place, time, and situation. Cranial nerves II-XII grossly intact. Motor strength 5/5 in upper extremities. He is paralized in the lower exrmeities from an old injury. Sensory grossly intact in upoper extremities. Cerebellar exam normal. Non-ambulatory Vital Signs: 07:25 BP 134 / 82; Pulse 121; Resp 18; Temp 98.0; Pulse Ox 98% on R/A; ph 08:41 BP 97 / 69; Pulse 102; Resp 18; Pulse Ox 97% on R/A; ph 09:36 BP 87 / 66; Pulse 85; Resp 18; Pulse Ox 96% on R/A; ph 10:16 BP 96 / 52; Pulse 93; Resp 18; Pulse Ox 98% on R/A; ph 11:03 BP 89 / 53; Pulse 97; Resp 18; Pulse Ox 98% on R/A; ph 11:57 BP 107 / 77; Pulse 89; Resp 18; Pulse Ox 100% on R/A; ph 11:03 pt lying on stomach w/ arms above head, ph Melvin Coma Score: 07:27 Eye Response: spontaneous(4). Verbal Response: oriented(5). Motor Response: obeys ph commands(6). Total: 15. 08:41 Eye Response: spontaneous(4). Verbal Response: oriented(5). Motor Response: obeys ph commands(6). Total: 15. 09:36 Eye Response: spontaneous(4). Verbal Response: oriented(5). Motor Response: obeys ph commands(6). Total: 15. 10:16 Eye Response: spontaneous(4). Verbal Response: oriented(5). Motor Response: obeys ph commands(6). Total: 15. 11:03 Eye Response: spontaneous(4). Verbal Response: oriented(5). Motor Response: obeys ph commands(6). Total: 15. 11:57 Eye Response: spontaneous(4). Verbal Response: oriented(5). Motor Response: obeys ph commands(6). Total: 15. Trauma Score (Adult): 07:27 Eye Response: spontaneous(1); Verbal Response: oriented(1); Motor Response: obeys ph commands(2); Systolic BP: > 89 mm Hg(4); Respiratory Rate: 10 to 29 per min(4); Realitos Score: 15; Trauma Score: 12 08:41 Eye Response: spontaneous(1); Verbal Response: oriented(1); Motor Response: obeys ph commands(2); Systolic BP: > 89 mm Hg(4); Respiratory Rate: 10 to 29 per min(4); Melvin Score: 15; Trauma Score: 12 09:36 Eye Response: spontaneous(1); Verbal Response: oriented(1); Motor Response: obeys ph commands(2); Systolic BP: 76 to 89 mm Hg(3); Respiratory Rate: 10 to 29 per min(4); [place]itos Score: 15; Trauma Score: 11 10:16 Eye Response: spontaneous(1); Verbal Response: oriented(1); Motor Response: obeys ph commands(2); Systolic BP: > 89 mm Hg(4); Respiratory Rate: 10 to 29 per min(4); [place]itos Score: 15; Trauma Score: 12 11:03 Eye Response: spontaneous(1); Verbal Response: oriented(1); Motor Response: obeys ph commands(2); Systolic BP: > 89 mm Hg(4); Respiratory Rate: 10 to 29 per min(4); Melvin Score: 15; Trauma Score: 12 11:57 Eye Response: spontaneous(1); Verbal Response: oriented(1); Motor Response: obeys ph commands(2); Systolic BP: > 89 mm Hg(4); Respiratory Rate: 10 to 29 per min(4); Melvin Score: 15; Trauma Score: 12 MDM: 10:26 Patient medically screened. kdr 10:26 Data reviewed: vital signs, nurses notes, lab test result(s), radiologic studies. kdr Counseling: I had a detailed discussion with the patient and/or guardian regarding: the historical points, exam findings, and any diagnostic results supporting the discharge/admit diagnosis, lab results, radiology results, the need to transfer to another facility. 12/15 10:22 Order name: CBC with Diff kdr 12/15 10:22 Order name: Chem 7 kdr 12/15 07:34 Order name: CT Abd/Pelvis - Without Contrast; Complete Time: 10:11 kdr 12/15 07:34 Order name: Hip Left 2 View XRAY; Complete Time: 10:11 kdr 12/15 10:22 Order name: PT-INR kdr Administered Medications: 07:35 Drug: NS 0.9% 500 ml Route: IV; Rate: bolus; Site: right antecubital; ph 08:20 Follow up: Response: No adverse reaction; IV Status: Completed infusion; IV Intake: ph 500ml 07:36 Drug: morphine 4 mg Route: IVP; Site: right antecubital; ph 07:45 Follow up: Response: No adverse reaction; Pain is decreased ph 09:25 Drug: Zofran (Ondansetron) 4 mg Route: IVP; Site: right antecubital; ph 13:00 Follow up: Response: No adverse reaction ph 09:40 Drug: NS 0.9% 500 ml Route: IV; Rate: bolus; Site: right antecubital; ph 10:15 Follow up: Response: No adverse reaction; IV Status: Completed infusion; IV Intake: ph 500ml Disposition: 12/15/20 10:26 Transfer ordered to [facility]. Diagnosis is Comminuted Left hip intertrochanteric fracture. - Reason for transfer: Higher level of care. - Accepting physician is [place]/ortho/medicine. - Condition is Fair. - Problem is new. - Symptoms have improved. Signatures: Dispatcher [employer] EDAlonzo Cam MD MD kdr Hall, Patricia, RN RN ph Corrections: (The following items were deleted from the chart) 11:59 10:26 12/15/2020 10:26 Transfer ordered to [facility]. Diagnosis is ph Comminuted Left hip intertrochanteric fracture. Reason for transfer: Higher level of care. Accepting physician is [place]/ortho/medicine. Condition is Fair. Problem is new. Symptoms have improved. kdr
--- NOTE | 2020-12-15 10:27 | ER ---
Nurse's Notes [facility] Name: Rogelio Pringle Age: 59 yrs Sex: Male : 1960 Arrival Date: 12/15/2020 Time: 07:18 Bed 28 Private MD: Diagnosis: Comminuted Left hip intertrochanteric fracture Presentation: 12/15 07:18 Chief complaint: EMS states: Pt was transferring from wheelchair to bedside commode and ph fell, c/o pain to L hip, crepitus palpated near femoral head, rates pain 8/10, initial BP 108 systolic then dropped to 86, 300 NS bolus and 4 Zofran given. Pt also reports loose BMs d/t recent laxative use. Care prior to arrival: Medication(s) given: Normal saline infusion, 300 mL zofran 4 mg, IV initiated. 18 GA, in the right antecubital area. Mechanism of Injury: Fall out of chair. Trauma event details: Injury occurred in the [facility], Injury occurred: at home. Injury occurred: December 15, 2020 Injury occurred at: 07:24. 07:18 Method Of Arrival: EMS: [facility] ph 07:18 Acuity: ROSA 2 ph 07:25 Coronavirus screen: Client denies travel out of the [place] in the last 14 days. At this ph time, the client does not indicate any symptoms associated with coronavirus-19. Ebola Screen: No symptoms or risks identified at this time. Initial Sepsis Screen: Does the patient meet any 2 criteria? No. Patient's initial sepsis screen is negative. Does the patient have a suspected source of infection? No. Patient's initial sepsis screen is negative. Risk Assessment: Do you want to hurt yourself or someone else? Patient reports no desire to harm self or others. Onset of symptoms was December 15, 2020. Trauma Activation: Alert Physician: ED Physician; Name: Carlos; Notified At: 07:24; Arrived At: Physician: General Surgeon; Name: ; Notified At: 07:24; Arrived At: Physician: Radiology; Name: ; Notified At: 07:24; Arrived At: Physician: Respiratory; Name: ; Notified At: 07:24; Arrived At: Physician: Scout; Name: ; Notified At: 07:24; Arrived At: Historical: - Allergies: : Sulfa (Sulfonamide Antibiotics); ph - Home Meds: : unknown BP medicine [Active]; gabapentin Oral [Active]; amlodipine oral [Active]; ph - PMHx: : chronic pain in BLE; High Cholesterol; Hypertension; paraplegic s/p back injury; ph - Immunization history:: Adult Immunizations unknown. - Immunization history: Last tetanus immunization: unknown. - Social history:: Smoking status: unknown. Screenin:28 Abuse screen: Denies threats or abuse. Denies injuries from another. Nutritional ph screening: No deficits noted. Tuberculosis screening: No symptoms or risk factors identified. Fall Risk Fall in past 12 months (25 points). Secondary diagnosis (15 points) impaired mobility, IV access (20 points). Ambulatory Aid- None/Bed Rest/Nurse Assist (0 pts). Gait- Impaired (20 pts.). Mental Status- Oriented to own ability (0 pts). Total [place] Fall Scale indicates High Risk Score (45 or more points). Fall prevention measures have been instituted. Side Rails Up X 2 Placed Close to Nursing Station Frequent Obs/Assessments Occuring As available patient and family educated on Fall Prevention Program and Strategies. Primary Survey: 07:30 NO uncontrolled hemorrhage observed. A: The patient is alert. Airway: patent, No ph supplemental oxygen in use on arrival. Oral cavity: clear, Trachea midline. Breathing/Chest: Respiratory pattern: regular, Respiratory effort: spontaneous, unlabored, Breath sounds: clear, bilaterally. Chest inspection: symmetrical rise and fall of the chest. Circulation: Skin color: pink, Skin temperature: warm, dry. Disability Alert. Exposure/Environment: There is no evidence of uncontrolled external bleeding. Obvious injury(ies) are noted at this time: deformity to L upper leg A warming method has been applied: A warm blanket has been provided to the patient. 09:30 Reassessment Airway Airway Patent Breathing/Chest Respiratory pattern Regular ph Respiratory effort Spontaneous Unlabored Chest inspection Symmetrical Circulation Color [place] Temperature Warm Dry Disability Alert. Secondary Survey: 07:30 HEENT: No deficits noted. Gastrointestinal: No deficits noted. : No deficits noted. ph Musculoskeletal: Range of motion: limited in lower extremities. Assessment: 07:30 Reassessment: Radiology at bedside, pt requesting to be placed on bed blackwood for BM before ph being taken for CT. 07:35 General: Appears in no apparent distress. uncomfortable, Behavior is calm, cooperative, ph appropriate for age. Pain: Complains of pain in left femoral area. Neuro: Level of Consciousness is awake, alert, obeys commands, Oriented to person, place, time, situation. Cardiovascular: Capillary refill < 3 seconds in bilateral fingers Patient's skin is warm and dry. Respiratory: Airway is patent Respiratory effort is even, unlabored. Derm: Skin is intact, Skin is pink, warm \T\ dry. normal. Musculoskeletal: Circulation, motion, and sensation intact. 08:40 Reassessment: Patient appears in no apparent distress at this time. Patient and/or ph family updated on plan of care and expected duration. Pain level reassessed. Patient is alert, oriented x 3, equal unlabored respirations, skin warm/dry/pink. Pt returned from CT, rates pain 5/10 at this time and states that he does not need additional paion medication at this time. 11:03 Reassessment: Patient appears in no apparent distress at this time. Patient and/or ph family updated on plan of care and expected duration. Pain level reassessed. Patient is alert, oriented x 3, equal unlabored respirations, skin warm/dry/pink. Report called to [facility]. Vital Signs: 07:25 BP 134 / 82; Pulse 121; Resp 18; Temp 98.0; Pulse Ox 98% on R/A; ph 08:41 BP 97 / 69; Pulse 102; Resp 18; Pulse Ox 97% on R/A; ph 09:36 BP 87 / 66; Pulse 85; Resp 18; Pulse Ox 96% on R/A; ph 10:16 BP 96 / 52; Pulse 93; Resp 18; Pulse Ox 98% on R/A; ph 11:03 BP 89 / 53; Pulse 97; Resp 18; Pulse Ox 98% on R/A; ph 11:57 BP 107 / 77; Pulse 89; Resp 18; Pulse Ox 100% on R/A; ph 11:03 pt lying on stomach w/ arms above head, ph [place] Coma Score: 07:27 Eye Response: spontaneous(4). Verbal Response: oriented(5). Motor Response: obeys ph commands(6). Total: 15. 08:41 Eye Response: spontaneous(4). Verbal Response: oriented(5). Motor Response: obeys ph commands(6). Total: 15. 09:36 Eye Response: spontaneous(4). Verbal Response: oriented(5). Motor Response: obeys ph commands(6). Total: 15. 10:16 Eye Response: spontaneous(4). Verbal Response: oriented(5). Motor Response: obeys ph commands(6). Total: 15. 11:03 Eye Response: spontaneous(4). Verbal Response: oriented(5). Motor Response: obeys ph commands(6). Total: 15. 11:57 Eye Response: spontaneous(4). Verbal Response: oriented(5). Motor Response: obeys ph commands(6). Total: 15. Trauma Score (Adult): 07:27 Eye Response: spontaneous(1); Verbal Response: oriented(1); Motor Response: obeys ph commands(2); Systolic BP: > 89 mm Hg(4); Respiratory Rate: 10 to 29 per min(4); [place] Score: 15; Trauma Score: 12 08:41 Eye Response: spontaneous(1); Verbal Response: oriented(1); Motor Response: obeys ph commands(2); Systolic BP: > 89 mm Hg(4); Respiratory Rate: 10 to 29 per min(4); Melvin Score: 15; Trauma Score: 12 09:36 Eye Response: spontaneous(1); Verbal Response: oriented(1); Motor Response: obeys ph commands(2); Systolic BP: 76 to 89 mm Hg(3); Respiratory Rate: 10 to 29 per min(4); Melvin Score: 15; Trauma Score: 11 10:16 Eye Response: spontaneous(1); Verbal Response: oriented(1); Motor Response: obeys ph commands(2); Systolic BP: > 89 mm Hg(4); Respiratory Rate: 10 to 29 per min(4); [place] Score: 15; Trauma Score: 12 11:03 Eye Response: spontaneous(1); Verbal Response: oriented(1); Motor Response: obeys ph commands(2); Systolic BP: > 89 mm Hg(4); Respiratory Rate: 10 to 29 per min(4); Melvin Score: 15; Trauma Score: 12 11:57 Eye Response: spontaneous(1); Verbal Response: oriented(1); Motor Response: obeys ph commands(2); Systolic BP: > 89 mm Hg(4); Respiratory Rate: 10 to 29 per min(4); [place] Score: 15; Trauma Score: 12 ED Course: 07:18 Patient arrived in ED. ph 07:24 Triage completed. ph 07:25 Alonzo Gonzalez MD is Attending Physician. kdr 07:25 Arm band placed on Patient placed in an exam room, on a stretcher, on pulse oximetry. ph 07:28 Patient has correct armband on for positive identification. Bed in low position. Call ph light in reach. Side rails up X 1. Pulse ox on. NIBP on. Door closed. Noise minimized. Warm blanket given. 07:28 Patient maintains SpO2 saturation greater than 95% on room air. Thermoregulation: warm ph blanket given to patient. 07:35 Maintain EMS IV. Dressing intact. Good blood return noted. Site clean \T\ dry. Gauge \T\ ph site: 18 RAC. IV is patent, with fluids infusing freely, with good blood return, Changed dressing on Flushed right antecubital with 5 ml normal saline. 07:49 Amanda Stoner RN is Primary Nurse. ph 08:13 CT Abd/Pelvis - Without Contrast In Process Unspecified. EDMS 08:30 Hip Left 2 View XRAY In Process Unspecified. EDMS 10:21 initiated a transfer with Amada from the [facility]. 10:29 administrative approval given Amada Sims Rn/ patient has been accepted to [facility] ER . Dr. Tami Choi has accepted the patient without conference with Dr. Gonzalez/ report to be called to [phone]. 11:55 No provider procedures requiring assistance completed. Patient transferred, IV remains ph in place. Administered Medications: 07:35 Drug: NS 0.9% 500 ml Route: IV; Rate: bolus; Site: right antecubital; ph 08:20 Follow up: Response: No adverse reaction; IV Status: Completed infusion; IV Intake: ph 500ml 07:36 Drug: morphine 4 mg Route: IVP; Site: right antecubital; ph 07:45 Follow up: Response: No adverse reaction; Pain is decreased ph 09:25 Drug: Zofran (Ondansetron) 4 mg Route: IVP; Site: right antecubital; ph 13:00 Follow up: Response: No adverse reaction ph 09:40 Drug: NS 0.9% 500 ml Route: IV; Rate: bolus; Site: right antecubital; ph 10:15 Follow up: Response: No adverse reaction; IV Status: Completed infusion; IV Intake: ph 500ml Intake: 07:27 PO: 0ml; Total: 0ml. ph 08:20 IV: 500ml; Total: 500ml. ph 10:15 IV: 500ml; Total: 1000ml. ph 10:16 IV: 500ml (IV Fluid); Total: 1500ml. ph 11:57 IV: 500ml (IV Fluid); Total: 2000ml. ph Output: 07:27 Urine: 0ml; Total: 0ml. ph Outcome: 10:26 ER care complete, transfer ordered by . kdr 11:58 Transferred by ground EMS [facility]. to [facility], Transfer form ph completed. X-rays sent w/ patient. 11:58 Condition: stable 11:58 Instructed on the need for transfer. 11:58 Patient's length of stay was not longer than 2 hours. ph 11:59 Patient left the ED. ph Signatures: Dispatcher [employer] EDMS Alonzo Gonzalez MD MD kdr Hall, Patricia, RN RN ph Lori Barcenas
[2020-12-15 11:06] LABS: Absolute Lymphocytes (CBC) 0.7 K/uL (0.7-4.9); Basophils % 0.3 % (0-1.3); Hematocrit 37.4 % (39.6-49.0); Lymphocytes % 6.9 % (15.3-44.8); MPV 7.9 fL (7.6-11.3); RBC Red Blood Cell Count 3.97 M/uL (4.33-5.43)
[2020-12-15 11:12] LABS: Protime INR 1.04
[2020-12-15 11:24] LABS: BUN Blood Urea Nitrogen 12 mg/dL (7-18); Bicarbonate 21 mmol/L (21-32); Glucose Level 134 mg/dL (74-106); Potassium 4.5 mmol/L (3.5-5.1); Sodium Level 139 mmol/L (136-145)
[2020-12-15 12:11] VITALS: TEMP 98
[2020-12-15 12:19] VITALS: BP 107/77; O2SAT 100
== END 2020-12-15 11:59 | disposition short-term general hospital (02) ==
LOC: ER 06:59
DX: S72.142A Displaced intertrochanteric fracture of left femur, initial encounter for closed fracture (principal); G82.20 Paraplegia, unspecified; E78.00 Pure hypercholesterolemia, unspecified; I10 Essential (primary) hypertension; G89.29 Other chronic pain; M79.604 Pain in right leg; M79.605 Pain in left leg; W05.0XXA Fall from non-moving wheelchair, initial encounter
CPT/HCPCS: 96361; 85025; 80048; 36415; 85610; 74176; 73502; 96375; 96374; 99285; J7040; J2405; G0390

== ENCOUNTER 2022-05-07 09:57 | Emergency (ER) | payer OTHER ==
--- OUTSIDE RECORDS SUMMARY | 2022-05-07 10:05 | XMS REPORT | Continuity of Care Document ---
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 MEDICATION WASTE Product Size: 4 mg Product Wasted: ___ mg Acetaminoph No Notes: Max Memoria en 6-05 acetaminop l 00:01: hen 4000 [place] 00 mg/day (4 gm/day). (Same as: Tylenol Extra Strength) Ketorolac No 4 days Memor ia 6-05 l 00:01: MEDICATION Jordin 00 WASTE Product Size: 30 mg Product Wasted: ___ mg gabapentin No Notes: Memor ia 6-05 (Same as: l 00:01: Neurontin) Jordin 00 Morphine No Notes: Memoria 6-04 (Same l 19:04: as:MORPhin Jordin 00 e Sulfate) Iohexol Yes Notes: Memoria 2-19 (Same l 17:28: as:Omnipaq [place] 00 [address]). WASTE: F/P - Black; E - Municipal Trash Bin sildenafil Yes See Memoria 100 MG Oral 6-12 Instructio l Tablet 16:02: ns, [place] [Viagra] 09 2-07/17 tab po daily prn; Faxed [facility] [phone] per protocol Dr. Zavaleta, # 3 tab, 5 Refill(s), called to pharmacy Omnipaque 2016-07 Yes Notes: Memori a 300 2-05 (Same l 16:14: as:Omnipaq [place] 00 [address]). WASTE: F/P - Black; E - Municipal Trash Bin sildenafil 2014-07 Yes See Memoria 100 MG Oral 1-30 Instructio l Tablet 21:48: ns, Jordin [Viagra] 00 /2-07/17 tab po daily prn, # 3 tab, 5 Refill(s), Pharmacy: [facility] [id number] sildenafil 2014-07 Yes 25 mg = 1 Me moria 25 MG Oral 0-07 tab, PO, l Tablet 18:30: PRN, 0 [place] [Viagra] 00 Refill(s) Pravastatin Pravastatin Yes Nata take one Common Sodium Sodium [place] tablet by Spiri t mouth once - [facility] Gabapentin Gabapentin Yes Nata 1 tablet [facility] Enalapril Enalapril Yes Nata 1 tab Com mon Maleate Maleate [facility] Enalapril Enalapril No BID Enalapril Maleate 20 Maleate 20 Maleate 20 MG MG MG Pravastatin Pravastatin No Pravastati Sodium 40 Sodium 40 n Sodium MG MG 40 MG Gabapentin Gabapentin No 1{capsu TID Gabapentin 400 MG 400 MG le} 400 MG Norvasc 5 Norvasc 5 No 1{table QD Norvasc 5 MG MG t} MG Gabapentin Gabapentin No 1{capsu TID Gabapentin 400 MG 400 MG le} 400 MG Norvasc 5 Norvasc 5 No 1{table QD Norvasc 5 MG MG t} MG Enalapril Enalapril No BID Enalapril Maleate 20 Maleate 20 Maleate 20 MG MG MG Pravastatin Pravastatin No Pravastati Sodium 40 Sodium 40 n Sodium MG MG 40 MG Gabapentin Gabapentin No 1{capsu TID Gabapentin 400 MG 400 MG le} 400 MG Norvasc 5 Norvasc 5 No 1{table QD Norvasc 5 MG MG t} MG Pravastatin Pravastatin No Pravastati Sodium 40 Sodium 40 n Sodium MG MG 40 MG Enalapril Enalapril No BID Enalapril Maleate 20 Maleate 20 Maleate 20 MG MG MG Gabapentin Gabapentin No 1{capsu TID Gabapentin 400 MG 400 MG le} 400 MG Enalapril Enalapril No BID Enalapril Maleate 20 Maleate 20 Maleate 20 MG MG MG Pravastatin Pravastatin No Pravastati Sodium 40 Sodium 40 n Sodium MG MG 40 MG Norvasc 5 Norvasc 5 No 1{table QD Norvasc 5 MG MG t} MG Enalapril Enalapril No BID Maleate 20 Maleate 20 MG MG Pravastatin Pravastatin No Sodium 40 Sodium 40 MG MG Norvasc 5 Norvasc 5 No 1{table QD MG MG t} Gabapentin Gabapentin No 1{capsu TID 400 MG 400 MG le} Norvasc 5 Norvasc 5 No 1{table QD Norvasc 5 MG MG t} MG Gabapentin Gabapentin No 1{capsu TID Gabapentin 400 MG 400 MG le} 400 MG Pravastatin Pravastatin No Pravastati Sodium 40 Sodium 40 n Sodium MG MG 40 MG Enalapril Enalapril No BID Enalapril Maleate 20 Maleate 20 Maleate 20 MG MG MG Norvasc 5 Norvasc 5 No 1{table QD Norvasc 5 MG MG t} MG Gabapentin Gabapentin No 1{capsu TID Gabapentin 400 MG 400 MG le} 400 MG Pravastatin Pravastatin No Pravastati Sodium 40 Sodium 40 n Sodium MG MG 40 MG Enalapril Enalapril No BID Enalapril Maleate 20 Maleate 20 Maleate 20 MG MG MG Norvasc 5 Norvasc 5 No 1{table QD Norvasc 5 MG MG t} MG Enalapril Enalapril No BID Enalapril Maleate 20 Maleate 20 Maleate 20 MG MG MG Pravastatin Pravastatin No Pravastati Sodium 40 Sodium 40 n Sodium MG MG 40 MG Gabapentin Gabapentin No 1{capsu TID Gabapentin 400 MG 400 MG le} 400 MG Norvasc 5 Norvasc 5 No 1{table QD Norvasc 5 MG MG t} MG Enalapril Enalapril No BID Enalapril Maleate 20 Maleate 20 Maleate 20 MG MG MG Pravastatin Pravastatin No Pravastati Sodium 40 Sodium 40 n Sodium MG MG 40 MG Gabapentin Gabapentin No 1{capsu TID Gabapentin 400 MG 400 MG le} 400 MG Pravastatin Pravastatin No Pravastati Sodium 40 Sodium 40 n Sodium MG MG 40 MG Gabapentin Gabapentin No 1{capsu TID Gabapentin 400 MG 400 MG le} 400 MG Norvasc 5 Norvasc 5 No 1{table QD Norvasc 5 MG MG t} MG Enalapril Enalapril No BID Enalapril Maleate 20 Maleate 20 Maleate 20 MG MG MG Pravastatin Pravastatin No Pravastati Sodium 40 Sodium 40 n Sodium MG MG 40 MG Gabapentin Gabapentin No 1{capsu TID Gabapentin 400 MG 400 MG le} 400 MG Norvasc 5 Norvasc 5 No 1{table QD Norvasc 5 MG MG t} MG Enalapril Enalapril No BID Enalapril Maleate 20 Maleate 20 Maleate 20 MG MG MG Enalapril Enalapril No BID Enalapril Maleate 20 Maleate 20 Maleate 20 MG MG MG Pravastatin Pravastatin No Pravastati Sodium 40 Sodium 40 n Sodium MG MG 40 MG Gabapentin Gabapentin No 1{capsu TID Gabapentin 400 MG 400 MG le} 400 MG Norvasc 5 Norvasc 5 No 1{table QD Norvasc 5 MG MG t} MG amLODIPine amLODIPine No amLODIPine Besylate 5 Besylate 5 Besylate 5 MG MG MG Gabapentin Gabapentin No 1{capsu TID Gabapentin 400 MG 400 MG le} 400 MG Pravastatin Pravastatin No Pravastati Sodium 40 Sodium 40 n Sodium MG MG 40 MG Enalapril Enalapril No BID Enalapril Maleate 20 Maleate 20 Maleate 20 MG MG MG Norvasc 5 Norvasc 5 No 1{table QD Norvasc 5 MG MG t} MG amLODIPine amLODIPine No amLODIPine Besylate 5 Besylate 5 Besylate 5 MG MG MG Gabapentin Gabapentin No 1{capsu TID Gabapentin 400 MG 400 MG le} 400 MG Pravastatin Pravastatin No Pravastati Sodium 40 Sodium 40 n Sodium MG MG 40 MG Enalapril Enalapril No BID Enalapril Maleate 20 Maleate 20 Maleate 20 MG MG MG Norvasc 5 Norvasc 5 No 1{table QD Norvasc 5 MG MG t} MG amLODIPine amLODIPine No amLODIPine Besylate 5 Besylate 5 Besylate 5 MG MG MG Gabapentin Gabapentin No 1{capsu TID Gabapentin 400 MG 400 MG le} 400 MG Pravastatin Pravastatin No Pravastati Sodium 40 Sodium 40 n Sodium MG MG 40 MG Enalapril Enalapril No BID Enalapril Maleate 20 Maleate 20 Maleate 20 MG MG MG Norvasc 5 Norvasc 5 No 1{table QD Norvasc 5 MG MG t} MG amLODIPine amLODIPine No amLODIPine Besylate 5 Besylate 5 Besylate 5 MG MG MG Norvasc 5 Norvasc 5 No 1{table QD Norvasc 5 MG MG t} MG Gabapentin Gabapentin No 1{capsu TID Gabapentin 400 MG 400 MG le} 400 MG Pravastatin Pravastatin No Pravastati Sodium 40 Sodium 40 n Sodium MG MG 40 MG Enalapril Enalapril No BID Enalapril Maleate 20 Maleate 20 Maleate 20 MG MG MG Norvasc 5 Norvasc 5 No 1{table QD Norvasc 5 MG MG t} MG Enalapril Enalapril No BID Enalapril Maleate 20 Maleate 20 Maleate 20 MG MG MG Pravastatin Pravastatin No Pravastati Sodium 40 Sodium 40 n Sodium MG MG 40 MG Gabapentin Gabapentin No 1{capsu TID Gabapentin 400 MG 400 MG le} 400 MG amLODIPine amLODIPine No amLODIPine Besylate 5 Besylate 5 Besylate 5 MG MG MG amLODIPine amLODIPine No amLODIPine Besylate 5 Besylate 5 Besylate 5 MG MG MG Pravastatin Pravastatin No Pravastati Sodium 40 Sodium 40 n Sodium MG MG 40 MG Gabapentin Gabapentin No 1{capsu TID Gabapentin 400 MG 400 MG le} 400 MG Enalapril Enalapril No Enalapril Maleate 20 Maleate 20 Maleate 20 MG MG MG amLODIPine amLODIPine No amLODIPine Besylate 5 Besylate 5 Besylate 5 MG MG MG Pravastatin Pravastatin No Pravastati Sodium 40 Sodium 40 n Sodium MG MG 40 MG Gabapentin Gabapentin No 1{capsu TID Gabapentin 400 MG 400 MG le} 400 MG Enalapril Enalapril No Enalapril Maleate 20 Maleate 20 Maleate 20 MG MG MG Gabapentin Gabapentin No 1{capsu TID Gabapentin 400 MG 400 MG le} 400 MG amLODIPine amLODIPine No amLODIPine Besylate 5 Besylate 5 Besylate 5 MG MG MG Pravastatin Pravastatin No Pravastati Sodium 40 Sodium 40 n Sodium MG MG 40 MG Enalapril Enalapril No Enalapril Maleate 20 Maleate 20 Maleate 20 MG MG MG Gabapentin Gabapentin No 1{capsu TID Gabapentin 400 MG 400 MG le} 400 MG amLODIPine amLODIPine No amLODIPine Besylate 5 Besylate 5 Besylate 5 MG MG MG Pravastatin Pravastatin No Pravastati Sodium 40 Sodium 40 n Sodium MG MG 40 MG Enalapril Enalapril No Enalapril Maleate 20 Maleate 20 Maleate 20 MG MG MG Pravastatin Pravastatin No Pravastati Sodium 40 Sodium 40 n Sodium MG MG 40 MG Enalapril Enalapril No Enalapril Maleate 20 Maleate 20 Maleate 20 MG MG MG amLODIPine amLODIPine No amLODIPine Besylate 5 Besylate 5 Besylate 5 MG MG MG Gabapentin Gabapentin No 1{capsu TID Gabapentin 400 MG 400 MG le} 400 MG Enalapril Enalapril No Enalapril Maleate 20 Maleate 20 Maleate 20 MG MG MG Gabapentin Gabapentin No 1{capsu TID Gabapentin 400 MG 400 MG le} 400 MG Pravastatin Pravastatin No Pravastati Sodium 40 Sodium 40 n Sodium MG MG 40 MG amLODIPine amLODIPine No amLODIPine Besylate 5 Besylate 5 Besylate 5 MG MG MG Pravastatin Pravastatin No Pravastati Sodium 40 Sodium 40 n Sodium MG MG 40 MG Enalapril Enalapril No Enalapril Maleate 20 Maleate 20 Maleate 20 MG MG MG amLODIPine amLODIPine No amLODIPine Besylate 5 Besylate 5 Besylate 5 MG MG MG Gabapentin Gabapentin No 1{capsu TID Gabapentin 400 MG 400 MG le} 400 MG Immunizations Ordered Immunization Filled Immunization Date Status Commen ts Source Name Name Moderna COVID-19 Moderna COVID-19 2021-03-31 Completed [facility] 16[facility]59:00 - [facility] Moderna COVID-19 Moderna COVID-19 2021-03-31 Completed [facility] Vaccine 16:59:00 - [facility] Moderna COVID-19 Moderna COVID-19 2021-03-31 Completed [facility] Vaccine Vaccine 16:59:00 - [facility] Moderna COVID-19 Moderna COVID-19 2021-03-31 Completed [facility] Vacc[facility] Vaccine 16:59:00 - [facility] Moderna COVID-19 Moderna COVID-19 2021-03-31 Completed [facility] Vacc[facility] Vaccine 16:59:00 - [facility] Moderna COVID-19 Moderna COVID-19 2021-03-31 Completed [facility] Vaccine 16:59:00 - [facility] Moderna COVID-19 Moderna COVID-19 2021-03-31 Completed [facility] Vaccine 16:59:00 - [facility] Moderna COVID-19 Moderna COVID-19 2021-03-31 Completed [facility] Vaccine 16:59:00 - [facility] Moderna COVID-19 Moderna COVID-19 2021-03-31 Completed [facility] Vaccine Vaccine 16:59:00 - [facility] Moderna COVID-19 Moderna COVID-19 2021-03-31 Completed [facility] Vaccine Vaccine 16:59:00 - [facility] Moderna COVID-19 Moderna COVID-19 2021-03-31 Completed [facility] Vaccine Vaccine 16:59:00 - [facility] Moderna COVID-19 Moderna COVID-19 2021-03-31 Completed [facility] Vaccine Vaccine 16:59:00 - [facility] Moderna COVID-19 Moderna COVID-19 2021-03-31 Completed [facility] Vaccine Vaccine 16:59:00 - [facility] Moderna COVID-19 Moderna COVID-19 2021-03-31 Completed [facility] Vaccine Vaccine 16:59:00 - [facility] Moderna COVID-19 Moderna COVID-19 2021-03-31 Completed [facility] Vaccine Vaccine 16:59:00 - [facility] Moderna COVID-19 Moderna COVID-19 2021-03-31 Completed [facility] Vaccine Vaccine 16:59:00 - [facility] Moderna COVID-19 Moderna COVID-19 2021-03-31 Completed [facility] Vaccine Vaccine 16:59:00 - [facility] Moderna COVID-19 Moderna COVID-19 2021-03-31 Completed [facility] Vaccine Vaccine 16:59:00 - [facility] Moderna COVID-19 Moderna COVID-19 2021-03-31 Completed [facility] Vaccine Vaccine 16:59:00 - [facility] Moderna COVID-19 Moderna COVID-19 2021-03-31 Completed [facility] Vaccine Vaccine 16:59:00 - [facility] Moderna COVID-19 Moderna COVID-19 2021-03-31 Completed [facility] Vaccine Vaccine 16:59:00 - [facility] Moderna COVID-19 Moderna COVID-19 2021-03-31 Completed [facility] Vaccine Vaccine 16:59:00 - [facility] Moderna COVID-19 Moderna COVID-19 2021-03-31 Completed [facility] 2021-03-31 Completed [facility] Vaccine Vaccine 16:59:00 [facility] Vital Signs Vital Name Observation Time Observation Value Comments Source height 2022-04-08 09:20:00 69 [in_i] Common [facility]irit [facility] weight 2022-04-08 09:20:00 165 [lb_av] Common [facility] temperature 2022-04-08 09:20:00 99.0 [degF] Common [facility] bmi 2022-04-08 09:20:00 24.36 kg/m2 [facility] oximetry 2022-04-08 09:20:00 98 % [facility] respiratory rate 2022-04-08 09:20:00 17 /min Comm on [facility] blood pressure 2022-04-08 09:20:00 135 mm[Hg] [facility] - systolic [facility] blood pressure 2022-04-08 09:20:00 69 mm[Hg] Common [facility] - diastolic [facility] height 2022-03-07 13:00:00 69 [in_i] [facility] 2022-03-07 13:00:00 165 [lb_av] Common S pirit [facility] temperature 2022-03-07 13:00:00 98.9 [degF] Common S pirit [facility] bmi 2022-03-07 13:00:00 24.36 kg/m2 Common S [facility] oximetry 2022-03-07 13:00:00 98 % Common [facility] respiratory rate 2022-03-07 13:00:00 17 /min Comm on [facility] blood pressure 2022-03-07 13:00:00 132 mm[Hg] [facility] - [facility] blood pressure 2022-03-07 13:00:00 78 mm[Hg] [facility] - diastolic [facility] height 2022-01-22 13:20:00 69 [in_i] Common [facility] weight 2022-01-22 13:20:00 160 [lb_av[facility] temperature 2022-01-22 13:20:00 98.1 [degF] Common S pirit [facility] bmi 2022-01-22 13:20:00 23.63 kg/m2 Common S [facility] oximetry 2022-01-22 13:20:00 99 % Common [facility] respiratory rate 2022-01-22 13:20:00 16 /min Comm on [facility] blood pressure 2022-01-22 13:20:00 134 mm[Hg] Common [facility] - systolic [facility] blood pressure 2022-01-22 13:20:00 76 mm[Hg] [facility] - [facility] height 2021-12-13 14:15:00 69 [in_i] Common [facility] weight 2021-12-13 14:15:00 160 [lb_av] [facility] 2021-12-13 14:15:00 97.9 [degF] Common S pirit [facility] bmi 2021-12-13 14:15:00 23.63 kg/m2 Common [facility] oximetry 2021-12-13 14:15:00 99 % [facility] 2021-12-13 14:15:00 16 /min Comm on [facility] blood pressure 2021-12-13 14:15:00 168 mm[Hg] [facility] - [facility] blood pressure 2021-12-13 14:15:00 80 mm[Hg] [facility] - [facility] height 2021-10-23 13:20:00 69 [in_i] Common [facility] weight 2021-10-23 13:20:00 170 [lb_av] Common [facility] temperature 2021-10-23 13:20:00 97.4 [degF] Common [facility] bmi 2021-10-23 13:20:00 25.1 kg/m2 Common [facility] oximetry 2021-10-23 13:20:00 97 % Common [facility] respiratory rate 2021-10-23 13:20:00 16 /min Comm on [facility] blood pressure 2021-10-23 13:20:00 132 mm[Hg] Common [facility] - systolic [facility] blood pressure 2021-10-23 13:20:00 70 mm[Hg] Common [facility] - diastolic [facility] height 2021-10-08 08:30:00 69 [in_i] Common [facility] weight 2021-10-08 08:30:00 170 [lb_av] Common [facility] temperature 2021-10-08 08:30:00 97.6 [degF] Common [facility] bmi 2021-10-08 08:30:00 25.1 kg/m2 [facility] oximetry 2021-10-08 08:30:00 97 % [facility] respiratory rate 2021-10-08 08:30:00 16 /min Comm on [facility] blood pressure 2021-10-08 08:30:00 173 mm[Hg] [facility] blood pressure 2021-10-08 08:30:00 87 mm[Hg] [facility] - [facility] height 2021-07-26 09:00:00 69 [in_i] Common [facility] weight 2021-07-26 09:00:00 165 [facility]_av[facility] temperature 2021-07-26 09:00:00 97.3 [degF] Common [facility] bmi 2021-07-26 09:00:00 24.36 kg/m2 [facility] oximetry 2021-07-26 09:00:00 98 % [facility] respiratory rate 2021-07-26 09:00:00 16 /min Comm on [facility] - [facility] blood pressure 2021-07-26 09:00:00 136 mm[Hg] [facility] - systolic [facility] blood pressure 2021-07-26 09:00:00 74 mm[Hg] [facility] - diastolic [facility] height 2021-05-18 13:00:00 69 [in_i] Common [facility] weight 2021-05-18 13:00:00 165 [lb_av] [facility] temperature 2021-05-18 13:00:00 98.7 [degF] [facility] bmi 2021-05-18 13:00:00 24.36 kg/m2 [facility] oximetry 2021-05-18 13:00:00 97 % [facility] blood pressure 2021-05-18 13:00:00 137 mm[Hg] Common [facility] - systolic [facility] blood pressure 2021-05-18 13:00:00 83 mm[Hg] [facility] - diastolic [facility] height 2021-04-30 13:00:00 69 [in_i] [facility] weight 2021-04-30 13:00:00 165 [lb_av] Common [facility] temperature 2021-04-30 13:00:00 97.8 [degF] [facility] bmi 2021-04-30 13:00:00 24.36 kg/m2 [facility] oximetry 2021-04-30 13:00:00 95 % [facility] respiratory rate 2021-04-30 13:00:00 16 /min Comm on [facility] blood pressure 2021-04-30 13:00:00 122 mm[Hg] [facility] - [facility] blood pressure 2021-04-30 13:00:00 66 mm[Hg] [facility] - diastolic [facility] height 2021-04-04 15:00:00 69 [in_i] Common [facility] weight 2021-04-04 15:00:00 165 [lb_av] Common [facility] bmi 2021-04-04 15:00:00 24.36 kg/m2 [facility] Temperature Oral (F) 2020 01:31:00 98.6 F [facility] J[facility] Heart Rate 2020 01:31:00 [facility] Respitory Rate 2020 01:31:00 Memori al [place] Systolic (mm Hg) 2020 01:31:00 Shar rial J[facility] Diastolic (mm Hg) 2020 01:31:00 Mem orial [place] Temperature Oral (F) 2020-12-20 21:14:00 98 F [facility] Heart Rate 2020-12-20 21:14:00 [facility] Respitory Rate 2020-12-20 21:14:00 Memori al [place] Systolic (mm Hg) 2020-12-20 21:14:00 Shar rial [place] Diastolic (mm Hg) 2020-12-20 21:14:00 Mem orial [place] Temperature Oral (F) 2020-12-20 17:00:00 98.8 F [facility] Heart Rate 2020-12-20 17:00:00 [facility] [place] Respitory Rate 2020-12-20 17:00:00 Memori al [place] Systolic (mm Hg) 2020-12-20 17:00:00 Shar rial Jordin Diastolic (mm Hg) 2020-12-20 17:00:00 Mem orial [place] Temperature Oral (F) 2020-12-18 04:35:00 99.8 F [facility] Respitory Rate 2020-12-18 04:35:00 Memori al [place] Systolic (mm Hg) 2020-12-18 04:35:00 Shar rial [facility] Diastolic (mm Hg) 2020-12-18 04:35:00 Mem orial [place] Temperature Oral (F) 2020-12-18 03:36:00 98.9 F [facility] Respitory Rate 2020-12-18 03:36:00 Memori al [place] Systolic (mm Hg) 2020-12-18 03:36:00 Hsar rial [place] Diastolic (mm Hg) 2020-12-18 03:36:00 Mem orial [place] Temperature Oral (F) 2020-12-18 01:34:00 98.8 F [facility] [place] Respitory Rate 2020-12-18 01:34:00 Memori al [place] Systolic (mm Hg) 2020-12-18 01:34:00 Shar rial [place] Diastolic (mm Hg) 2020-12-18 01:34:00 Mem orial [place] Heart Rate 2020-12-16 14:17:00 [facility] [place] Height 2020-12-16 12:35:00 177.8 cm [facility] [place] Weight 2020-12-16 12:35:00 [facility] [place] BMI Calculated 2020-12-16 12:35:00 Memori al [place] Heart Rate 2020-12-15 18:21:00 [facility] Weight 2018-10-05 15:09:00 [facility] [place] BMI Calculated 2018-10-05 15:09:00 Memori al [place] Height 2018-10-05 15:09:00 172.72 cm [facility] Respitory Rate 2018-10-05 15:09:00 Memori al [place] Heart Rate 2018-10-05 15:09:00 [facility] Height 2018-09-01 19:26:00 172.72 cm [facility] [place] BMI Calculated 2018-09-01 19:26:00 Memori al [place] Weight 2018-09-01 19:26:00 [facility] [place] Systolic (mm Hg) 2018-09-01 19:26:00 Shar rial [place] Diastolic (mm Hg) 2018-09-01 19:26:00 Mem orial [facility] Temperature Oral (F) 2018-09-01 19:26:00 98.8 F [facility] [place] Heart Rate 2018-09-01 19:26:00 [facility] [place] Weight 2017-05-26 15:53:00 [facility] [place] Height 2017-05-26 15:53:00 175.26 cm [facility] [place] BMI Calculated 2017-05-26 15:53:00 Memori al [place] Systolic (mm Hg) 2017-05-26 15:53:00 Shar rial [place] Diastolic (mm Hg) 2017-05-26 15:53:00 Mem orial [place] Respitory Rate 2017-05-26 15:53:00 Memori al [place] Heart Rate 2017-05-26 15:53:00 [facility] [place] BMI Calculated 2017-05-20 17:24:00 Memori al [place] Weight 2017-05-20 17:24:00 [facility] Height 2017-05-20 17:24:00 175.26 cm [facility] Heart Rate 2017-05-20 17:24:00 [facility] [place] Respitory Rate 2017-05-20 17:24:00 Memori al [place] Temperature Oral (F) 2017-05-20 17:24:00 98.3 F [facility] [place] Systolic (mm Hg) 2017-05-20 17:24:00 Shar rial [place] Diastolic (mm Hg) 2017-05-20 17:24:00 Mem orial [facility] BMI Calculated 2016-05-29 15:35:00 Memori al [place] Height 2016-05-29 15:35:00 172.72 cm [facility] [place] Weight 2016-05-29 15:35:00 [facility] [place] Systolic (mm Hg) 2016-05-29 15:35:00 Shar rial [place] Diastolic (mm Hg) 2016-05-29 15:35:00 Mem orial [place] Respitory Rate 2016-05-29 15:35:00 Memori al [facility] Heart Rate 2016-05-29 15:35:00 [facility] [place] BMI Calculated 2016-05-24 16:27:00 Memori al [place] Weight 2016-05-24 16:27:00 [facility] Height 2016-05-24 16:27:00 172.72 cm [facility] [place] Systolic (mm Hg) 2016-05-24 16:27:00 Shar rial [facility] Diastolic (mm Hg) 2016-05-24 16:27:00 Mem orial [place] Heart Rate 2016-05-24 16:27:00 [facility] Temperature Oral (F) 2016-05-24 16:27:00 98 F [facility] Heart Rate 2015-09-19 17:42:00 [facility] [place] Systolic (mm Hg) 2015-09-19 17:42:00 Shar rial [place] Diastolic (mm Hg) 2015-09-19 17:42:00 Mem orial [place] Height 2015-06-16 15:36:00 172.72 cm [facility] Systolic (mm Hg) 2015-06-16 15:36:00 Shar rial [facility] Diastolic (mm Hg) 2015-06-16 15:36:00 Mem orial [place] Heart Rate 2015-06-16 15:36:00 [facility] Weight 2015-06-16 15:36:00 [facility] BMI Calculated 2015-06-16 15:36:00 Memori al [facility] Weight 2015-04-24 14:53:00 [facility] Height 2015-04-24 14:53:00 175.26 cm [facility] [place] BMI Calculated 2015-04-24 14:53:00 [facility] Heart Rate 2015-04-24 14:53:00 [facility] Respitory Rate 2015-04-24 14:53:00 [facility] Systolic (mm Hg) 2015-04-24 14:53:00 Shar [facility] Diastolic (mm Hg) 2015-04-24 14:53:00 [facility] [place] Height 2015-04-19 18:40:00 172.72 cm [facility] Systolic (mm Hg) 2015-04-19 18:40:00 Shar [facility] Diastolic (mm Hg) 2015-04-19 18:40:00 [facility] [place] BMI Calculated 2015-04-19 18:40:00 [facility] Weight 2015-04-19 18:40:00 [facility] Temperature Oral (F) 2015-04-19 18:40:00 98.2 F [facility] Heart Rate 2015-04-19 18:40:00 [facility] Heart Rate 2014-05-02 15:00:00 [facility] [place] Respitory Rate 2014-05-02 15:00:00 [facility] Diastolic (mm Hg) 2014-05-02 15:00:00 [facility] [place] Systolic (mm Hg) 2014-05-02 15:00:00 Shar [facility] Height 2014-05-02 15:00:00 172.72 cm [facility] Weight 2014-05-02 15:00:00 [facility] [place] BMI Calculated 2014-05-02 15:00:00 [facility] [place] Systolic (mm Hg) 2014-04-25 23:39:00 [facility] [place] Diastolic (mm Hg) 2014-04-25 23:39:00 [facility] [place] Temperature Oral (F) 2014-04-25 23:39:00 98.5 F [facility] Heart Rate 2014-04-25 23:39:00 [facility] [place] Respitory Rate 2014-04-25 23:39:00 [facility] [place] Height 2014-04-25 23:39:00 170.18 cm [facility] [place] BMI Calculated 2014-04-25 23:39:00 [facility] Weight 2014-04-25 23:39:00 [facility] Systolic (mm Hg) 2013-04-05 16:03:00 [facility] [place] Diastolic (mm Hg) 2013-04-05 16:03:00 [facility] [place] Heart Rate 2013-04-05 16:03:00 [facility] Respitory Rate 2013-04-05 16:03:00 [facility] Temperature Oral (F) 2013-04-05 16:03:00 98.8 F [facility] [place] Weight 2013-04-05 16:03:00 [facility] Height 2013-04-05 16:03:00 172.72 cm [facility] Weight 2013-02-22 14:32:00 [facility] [place] Height 2013-02-22 14:32:00 172.72 cm [facility] [place] Respitory Rate 2013-02-22 14:32:00 [facility] Heart Rate 2013-02-22 14:32:00 [facility] [place] Temperature Oral (F) 2013-02-22 14:32:00 99.1 F [facility] Systolic (mm Hg) 2013-02-22 14:32:00 Shar [facility] [place] Diastolic (mm Hg) 2013-02-22 14:32:00 [facility] [place] Systolic (mm Hg) 2011-09-02 16:39:00 Shar [facility] Respitory Rate 2011-09-02 16:39:00 Elly jacob [place] Heart Rate 2011-09-02 16:39:00 [facility] [place] Diastolic (mm Hg) 2011-09-02 16:39:00 Álvaro merino [facility] Procedures Procedure Date / Time Performed Performing Clinician Trena guerra CMG - Cystometrogram 2018-09-01 06:00:00 Kyree Brenner CMG - Cystometrogram 2013-04-05 05:00:00 Roderick Zavaleta [facility] En[facility]ters Start End Encounter Admission Attending Care Care Encounter Source Date/Time Date/Time Type Type Clinicians Facility Department ID 2022-05-07 Outpatient MHIE MHIE [id number] [facility] 09:59:59 04 l [facility] 2022-01-18 Outpatient Priti, [facility] [id number] Common 08:47:00 [facility] 2021-10-19 Outpatient Cobb, [facility] [id number] Common 09:35:00 Nata [facility] 2021-09-21 Outpatient [facility] [id number] [place] 11:22:30 [facility] 2021-09-05 Outpatient [facility] [id number] [place] 13:09:09 Health 2021-08-08 Outpatient Priti, [facility] [id number] Common 14:34:19 Nata [facility] 2021-08-08 Outpatient Priti, [facility] [id number] Common 13:51:23 Nata [id number] [facility] 2021-08-08 Outpatient Priti [facility] [id number] Common 12:45:23 Nata [id number] [facility] 2021-08-08 Outpatient Cobb, [facility] [id number] Common 11:59:24 Nata [id number] [facility] 2021-07-05 Outpatient [facility] [id number] [place] 15:15:35 Health 2021-07-02 [facility] [id number] [place] 10:42:43 [facility] 2021-05-09 Outpatient [facility] [id number] [place] 15:32:46 Health 2021-05-01 Outpatient [facility] [id number] [place] 14:40:49 Health 2021-03-29 Outpatient NICHOLS, [facility] [id number] [place] 09:21:18 [facility] 2021-02-13 Outpatient [facility] [id number] [place] 14:49:13 Health 2021-02-12 Outpatient NICHOLS, [facility] [id number] [place] 11:09:15 [facility] 2021-02-12 Outpatient NICHOLS, [facility] [id number] [place] 10:04:04 [facility] 2021-02-06 Outpatient [facility] [id number] [place] 15:09:29 Health 2021-01-16 Outpatient ACHOR, [facility] [id number] [place] 01:03:21 [facility] 2021-01-01 Outpatient NICHOLS, [facility] [id number] [place] 15:08:44 [facility] 2020-12-26 Outpatient NICHOLS, [facility] [id number] [place] 14:46:05 [facility] 2022-04-17 2022-04-17 (TEL) STLMLC STLMLC [id number] Co mmon 00:00:00 00:00:00 [facility] 2022-04-08 2022-04-08 SUB ANNUAL STLMLC STLMLC [id number] Common 00:00:00 00:00:00 MCR [facility] - [facility] VISIT [facility] 2022-03-12 2022-03-12 (TEL) STLMLC STLMLC [id number] Co mmon 00:00:00 00:00:00 [facility] 2022-03-07 2022-03-07 (PROC) STLMLC STLMLC [id number] Co mmon 00:00:00 00:00:00 Procedure Spir it - [facility] 2022-02-25 2022-02-25 (TEL) STLMLC STLMLC [id number] Co mmon 00:00:00 00:00:00 [facility] 2022-01-22 2022-01-22 OFFICE STLMLC STLMLC [id number] Co mmon 00:00:00 00:00:00 VISIT Spirit ESTAB PT - [facility]I LEVEL 4 [facility] 2022-01-07 2022-01-07 Office Nichols, UTP 6414 1.2.840.114 [id number] [place] 09:30:00 11:04:[address] [id number] Health 9.2.7.2.686 [id number] 1 2021-12-27 2021-12-27 (TEL) STLMLC STLMLC [id number] Co mmon 00:00:00 00:00:00 [facility] 2021-12-13 2021-12-13 OFFICE STLMLC STLMLC [id number] Co mmon 00:00:00 00:00:00 VISIT Spirit ESTAB PT - CHI LEVEL 2 [facility] 2021-10-23 2021-10-23 OFFICE STLMLC STLMLC [id number] Co mmon 00:00:00 00:00:00 VISIT [facility] ESTAB PT - [facility] LEVEL 4 [facility] 2021-10-23 2021-10-23 (TEL) STLMLC STLMLC [id number] Co mmon 00:00:00 00:00:00 [facility] 2021-10-08 2021-10-08 OFFICE STLMLC STLMLC [id number] Co mmon 00:00:00 00:00:00 VISIT [facility] ESTAB PT - [facility]I LEVEL 4 [facility] 2021-10-02 2021-10-02 (TEL) STLMLC STLMLC [id number] Co mmon 00:00:00 00:00:00 [facility] 2021-09-10 2021-09-10 Office Rufino, UTP 6414 1.2.840.114 [id number] [place] 09:45:00 10:39:[address] [id number] Health [id number] 1 2021-08-30 2021-08-30 (TEL) STLMLC STLMLC [id number] Co mmon 00:00:00 00:00:00 [facility] 2021-08-27 2021-08-27 (TEL) STLMLC STLMLC [id number] Co mmon 00:00:00 00:00:00 [facility] 2021-08-24 2021-08-24 (TEL) STLMLC STLMLC [id number] Co mmon 00:00:00 00:00:00 [facility] 2021-08-14 2021-08-14 (TEL) STLMLC STLMLC [id number] Co mmon 00:00:00 00:00:00 [facility] 2021-07-31 2021-07-31 (TEL) STLMLC STLMLC [id number] Co mmon 00:00:00 00:00:00 [facility] 2021-07-26 2021-07-26 OFFICE STLMLC STLMLC [id number] Co mmon 00:00:00 00:00:00 VISIT Spirit ESTAB PT - CHI LEVEL 4 [facility] 2021-07-02 2021-07-02 Office NARCISO Nichols 6414 1.2.840.114 [id number] [place] 10:45:00 10:45:[address] [id number] Health 9.2.7.2.686 [id number] 1 2021-07-02 2021-07-02 Refill Eduardodeyvi Jeanette NARCISO 6414 1.2.840.1 14 [id number] [place] 00:00:00 00:00:[address] [id number] Health 9.2.7.2.686 [id number] 1 2021-05-18 2021-05-18 OFFICE STLMLC STLMLC [id number] Co mmon 00:00:00 00:00:00 VISIT EST Spir it PT LEVEL 3 - [facility] 2021-05-07 2021-05-07 Office NARCISO Nichols 1.2.840.114 [id number] [place] 10:14:16 11:41:40 Visit Emma TRAUMA [id number] [facility] 9.2.7.2.686 [id number] 1 2021-05-01 2021-05-01 (TEL) STLMLC STLMLC [id number] Co mmon 00:00:00 00:00:00 [facility] 2021-04-30 2021-04-30 OFFICE STLMLC STLMLC [id number] Co mmon 00:00:00 00:00:00 VISIT Spirit ESTAB PT - CHI LEVEL 4 [facility] 2021-04-19 2021-04-19 Refill Rufino, UTP 1.2.840.114 [id number] [place] 00:00:00 00:00:00 Reeju TRAUMA [id number] He [facility] CLINIC 9.2.7.2.686 [id number] 1 2021-04-06 2021-04-06 Outpatient STLMLC STLMLC [id number] Common 00:00:00 00:00:00 [facility] 2021-04-04 2021-04-04 SUB ANNUAL STLMLC STLMLC [id number] Common 00:00:00 00:00:00 MCR [facility] VISIT [facility] 2021-04-03 2021-04-03 Outpatient STLMLC STLMLC [id number] Common 00:00:00 00:00:00 [facility] 2021-04-02 2021-04-02 (TEL) STLMLC STLMLC [id number] Co mmon 00:00:00 00:00:00 [facility] 2021-03-26 2021-03-26 Office Rufino, UTP 1.2.840.114 [id number] [place] 10:02:23 10:58:11 Visit Reeju TRAUMA [id number] [facility] CLINIC 9.2.7.2.686 [id number] 1 2021-03-21 2021-03-21 Outpatient STLMLC STLMLC [id number] Common 00:00:00 00:00:00 [facility] 2021-03-09 2021-03-09 Outpatient STLMLC STLMLC [id number] Common 00:00:00 00:00:00 [facility] 2021-03-07 2021-03-07 Outpatient STLMLC STLMLC [id number] Common 00:00:00 00:00:00 [facility] 2021-03-01 2021-03-01 Refill NARCISO Nichols 1.2.840.114 [id number] [place] 00:00:00 00:00:00 Emma TRAUMA [id number] [facility] 9.2.7.2.686 [phone] 1 2021-01-31 2021-01-31 Outpatient STLMLC STLC [id number] Common 00:00:00 00:00:00 [facility] 2021-01-29 2021-01-29 Refill Jeanette Burden UTP 1.2.840.11 [id number] [place] 00:00:00 00:00:00 Jeanette Burden TRAUMA [id number] [facility] 9.2.7.2.686 [id number] 1 2021-01-26 2021-01-26 Outpatient STLMLC STLC [id number] Common 00:00:00 00:00:00 [facility] 2021-01-15 2021-01-15 Refill NARCISO Nichols 1.2.840.114 [id number] [place] 00:00:00 00:00:00 Emma TRAUMA [id number] [facility] 9.2.7.2.686 [id number] 1 2021-01-12 2021-01-12 Outpatient STLC STLC [id number] Common 00:00:00 00:00:00 [facility] 2021-01-04 2021-01-04 Outpatient STLC STLC [id number] Common 00:00:00 00:00:00 [facility] 2021-01-04 2021-01-04 Patient Audelia Ba NARCISO ACEVEDO 1.2.840 .114 [id number] [place] 00:00:00 00:00:00 Outreach Audelia Ba TOWER 350.1.13.[address]686 [id number] 2 2021-01-01 2021-01-01 Office NARCISO Nichols 1.2.840.114 [id number] [place] 13:58:07 15:09:21 Visit Emma TRAUMA [id number] [facility] CLINIC 9.2.7.2.686 [id number] 1 2021-01-01 2021-01-01 Refill Jeanette Burden 1.2.840.11 4 [id number] [place] 00:00:00 00:00:00 Jeanette Burden TRAUMA [id number] Health CLINIC 9.2.7.2.686 [id number] 2020-12-28 2020-12-28 Patient Audelia Ba 1.2.840 .114 [id number] [place] 00:00:00 00:00:00 Outreach Audelia Ba [id number] [facility] 9.2.7.2.686 [id number] 2 2020-12-26 2020-12-26 Patient Audelia Ba 1.2.840 .114 [id number] [place] 00:00:00 00:00:00 Outreach Audelia Ba [id number] [facility] 9.2.7.2.686 [id number] 2 2020-12-22 2020-12-22 Outpatient [facility] [id number] Common 00:00:00 00:00:00 [facility] 2020-12-15 2020 [facility]patient [facility] [id number] [facility] 17:48:41 00:00:[address] 2020-12-15 2020-12-20 Inpatient E MOUSER, [facility] MED [id number] [facility] 18:48:00 19:00:00 REGAN 2020-12-15 2020-12-20 Outpatient Mouser, [facility] [id number] 575 12:48:41 19:00:00 Regan Savage 25 2020-12-16 2020-12-16 EXT MHH OP EXT MSRDP 1.2.840.114 [id number] [place] 00:00:00 00:00:00 LOCATION [id number] H ealt 9.2.7.2.686 [id number] 2020-12-16 2020-12-16 EXT MHH OP EXT MSRDP 1.2.840.114 1 [id number] [place] 00:00:00 00:00:00 LOCATION 350.1.13.58 H [facility] 9.2.7.2.686 [id number] 2020-12-15 2020-12-15 Outpatient Mouser, [facility] [id number] 12:48:41 12:48:41 Regan D 2020-12-05 2020-12-05 Outpatient STLMLC STLMLC [id number] Common 00:00:00 00:00:00 [facility] 2020-05-11 2020-05-11 Outpatient STLMLC STLMLC [id number] Common 00:00:00 00:00:00 [facility] 2020-04-19 2020-04-19 Outpatient STLMLC STLMLC [id number] Common 00:00:00 00:00:00 [facility] 2020-04-17 2020-04-17 Outpatient STLMLC STLMLC [id number] Common 00:00:00 00:00:00 [facility] 2019-12-20 2019-12-20 [facility] [id number] Common 09:10:00 09:10:00 [facility] 2019-11-02 2019-11-02 Out[facility] [id number] Common 08:53:00 08:53:00 [facility] 2019-10-21 2019-10-21 Out[facility] [id number] Common 10:11:00 10:11:00 [facility] 2019-10-14 2019-10-14 Out[facility] [id number] Common 15:44:00 15:44:00 t Specialty/U Sp laz Specialty rology - [facility] /[facility] 2019-10-05 2019-10-05 Out[facility] [id number] Common 13:30:00 13:30:00 t Specialty/U Sp laz Specialty rology - [facility] 2019-09-16 2019-09-16 [facility] [id number] Common 14:00:00 14:00:00 t Specialty/U Sp laz Specialty rology - [facility] 2019-09-08 2019-09-08 Outpatient [facility] [id number] Common 09:40:00 09:40:[address] [facility] [address] [facility] 2019-08-27 2019-08-27 Out[facility] [id number] Common 14:26:00 14:26:00 t [facility] [address] [facility] 2019-03-03 2019-03-03 Out[facility] [id number] Common 13:00:00 13:00:00 t [facility] [address] [facility] 2019-01-28 2019-01-28 Outpatient [facility] [id number] Common 11:20:00 11:20:00 t [facility] [address] [facility] 2018-10-05 2018-10-06 Outpatient nullFlavo TR Urology 36 [id number] Memoria 14:45:00 04:59:00 r Tiffany 23 l (UROR) Jordin 2018-10-05 2018-10-05 Outpatient ARMOND Zavaleta TIRR [id number] 09:45:00 23:59:00 Roderick Guerra 23 2018-09-04 2018-09-04 Outpatient [facility] [id number] Common 11:30:00 11:30:[address] [facility] [address] [facility] 2018-09-01 2018-09-02 Outpatient nullFlavo TIRR [id number] Memoria 17:47:00 05:59:00 r [facility] l Jordin Brenner 2018-09-01 2018-09-01 Outpatient ARMOND Zavaleta TIRR [id number] 11:47:00 23:59:00 Roderick Guerra 24 2018-08-28 2018-08-28 Outpatient [facility] [id number] Common 09:34:00 09:34:00 [address] [facility] [address] [facility] 2018-05-19 2018-05-19 Outpatient nullFlavo TIRR [id number] Memoria 16:00:00 16:00:00 r [facility] 22 l J[place] 2018-05-19 2018-05-19 Outpatient Meghann, CHAKATIRR MHTIRR [id number] 10:00:00 10:00:00 Roderick Guerra 22 2018-03-19 2018-03-19 Out[facility] [id number] Common 16:52:00 16:52:00 [facility] 2018-03-05 2018-03-05 Outpatient [facility] [id number] Common 11:00:00 11:00:00 [facility] 2017-06-17 2017-06-18 Outpatient nullFlavo TIRR [id number] Memoria 15:52:00 05:59:00 r [facility] 21 [facility] 2017-06-17 2017-06-17 Outpatient Meghann, CHAKATIRR MHTIRR [id number] 09:52:00 23:59:00 Roderick Guerra 21 2017-05-26 2017-05-27 Outpatient nullFlavo TIRR [id number] Memoria 15:33:00 05:59:00 r [facility] 19 [facility] 2017-05-26 2017-05-26 Outpatient Meghann, MHTIRR MHTIRR [id number] 09:33:00 23:59:00 Roderick Guerra 19 2017-05-20 2017-05-21 Outpatient nullFlavo TIRR [id number] Memoria 14:55:00 05:59:00 r [facility] 20 l [facility] 2017-05-20 2017-05-20 Outpatient Meghann, MHTIRR MHTIRR [id number] 08:55:00 23:59:00 Roderick E 20 2016-05-29 2016-05-30 Outpatient nullFlavo TIRR [id number] Mem[facility] 15:21:00 05:59:00 r [facility] 17 [facility] 2016-05-29 2016-05-29 Outpatient Meghann, MHTIRR MHTIRR [id number] 09:21:00 23:59:00 Roderick E 17 2016-05-24 2016-05-25 Outpatient nullFlavo TIRR [id number] Memoria 15:09:00 05:59:00 r [facility] 18 [facility] 2016-05-24 2016-05-24 Outpatient Meghann, MHTIRR MHTIRR [id number] 09:09:00 23:59:00 Roderick E 18 2015-09-19 2015-10-19 OP nullFlavo TIRR [id number] [facility] 14:00:00 04:59:00 Recurring r [facility] 01 [facility] 2015-09-19 2015-10-18 Outpatient Physician, MHTIRR MHTIRR [id number] 08:00:00 23:59:00 Non 01 Associated 2015-06-16 2015-07-16 OP nullFlavo TIRR [id number] [facility]oria 14:00:00 05:59:00 Recurring r [facility] 00 [facility] 2015-06-16 2015-07-15 Outpatient Physician, MHTIRR MHTIRR [id number] 08:00:00 23:59:00 Non 00 Associated 2015-04-24 2015-04-25 Outpatient nullFlavo TIRR [id number] Memoria 14:05:00 04:59:00 r [facility] 14 [facility] 2015-04-24 2015-04-24 Outpatient Meghann, CHAKATIRR TIRR [id number] 09:05:00 23:59:00 Roderick Guerra 14 2015-04-19 2015-04-20 Outpatient nullFlavo TIRR [id number] Memoria 15:40:00 04:59:00 r [facility] 12 [facility] 2015-04-19 2015-04-19 Outpatient Meghann, CHAKATIRR TIRR [id number] 10:40:00 23:59:00 Roderick Guerra 12 2014-05-02 2014-05-03 Outpatient nullFlavo [facility] [id number] [facility] 14:36:00 04:59:00 [facility] 11 [facility] 2014-05-02 2014-05-02 Outpatient Meghann, 2.16.840. 2.16.840.1. [id number] 09:36:00 23:59:00 Roderick Guerra [id number] 3.615.0.1 [id number] [id number] 9556-10-13 2014-04-26 Outpatient Cely [facility] [id number] Memoria 16:50:00 04:59:00 otis Jordin 10 l ALEJANDRO Jordin 2014-04-25 2014-04-25 Outpatient Meghann 2.16.840. 2.16.840.1. [id number] 11:50:00 23:59:00 Roderick Guerra [id number] 3.615.0.1 [id number] 29 7273-09-23 2013-04-05 Outpatient [facility] [id number] Memoria 10:00:00 10:00:00 09 joe Brenner 2013-02-22 2013-02-22 Outpatient [facility] [id number] Memoria 09:00:00 09:00:00 08 joe Brenner 2011-09-02 2011-09-02 Outpatient [facility] [id number] Memoria 09:54:00 09:54:00 03 joe Brenner Results Test Description Test Time Test Comments Results Result Comments Source CULTURE, URINE/SENSITIVITY ON ALL 2021-07-30 00:00:00 Test Item Value Reference Range Interpretation Comme nts CULTURE, URINE/SENSITIVITY ON ALL (test code = SPECIMEN NUMBER: [id number] [id number]) CHEM [id number] 05:05:00 Test Item Value Reference Range Interpretation Comments Glucose Lvl (test code = Glucose Lvl) 140 70-99 [facility] [id number] 05:05:00 Test Item Value Reference Range Interpretation Comments BUN (test code = BUN) 6 7-22 [facility] [id number] 05:05:00 Test Item Value Reference Range Interpretation Comments Creatinine Lvl (test code = Creatinine 0.45 0.50-1.40 Lvl) [facility] [id number] 05:05:00 Test Item Value Reference Range Interpretation Comments Sodium Lvl (test code = Sodium Lvl) 137 135-145 [facility] [id number] 05:05:00 Test Item Value Reference Range Interpretation Comments Potassium Lvl (test code = Potassium 3.1 3.5-5.1 Lvl) [facility] [id number] 05:05:00 Test Item Value Reference Range Interpretation Comments Chloride Lvl (test code = Chloride Lvl) 105 95-109 [facility]2021-06-09 05:05:00 Test Item Value Reference Range Interpretation Comments CO2 (test code = CO2) 26 24-32 [facility]2021-06-09 05:05:00 Test Item Value Reference Range Interpretation Comments AGAP (test code = AGAP) 9.1 10.0-20.0 [facility]2021-06-09 05:05:00 Test Item Value Reference Range Interpretation Comments Calcium Lvl (test code = Calcium Lvl) 8.6 8.5-10.5 [facility]2021-06-09 05:05:00 Test Item Value Reference Range Interpretation Comments eGFR (test code = eGFR) 122 [facility]2021-06-09 05:05:00 Test Item Value Reference Range Interpretation Comments Phosphorus (test code = Phosphorus) 3.0 2.5-4.5 [id number] 05:05:00 Test Item Value Reference Range Interpretation Comments WBC (test code = WBC) 8.9 3.7-10.4 [facility] [id number] 05:05:00 Test Item Value Reference Range Interpretation Comments RBC (test code = RBC) 2.47 4.70-6.10 [facility] [id number] 05:05:00 Test Item Value Reference Range Interpretation Comments Hgb (test code = Hgb) 8.3 14.0-18.0 [place] 518651-06-09 05:05:00 Test Item Value Reference Range Interpretation Comments Hct (test code = Hct) 23.8 42.0-54.0 [facility] [id number] 05:05:00 Test Item Value Reference Range Interpretation Comments MCV (test code = MCV) 96.1 80.0-94.0 [place] 518651-06-09 05:05:00 Test Item Value Reference Range Interpretation Comments MCH (test code = MCH) 33.5 pg 27.0-31.0 [place] 518651-06-09 05:05:00 Test Item Value Reference Range Interpretation Comments MCHC (test code = MCHC) 34.8 32.0-36.0 [facility] [id number] 05:05:00 Test Item Value Reference Range Interpretation Comments RDW (test code = RDW) 13.9 11.5-14.5 [facility] [id number] 05:05:00 Test Item Value Reference Range Interpretation Comments Platelet (test code = Platelet) 364 133-450 [facility] [id number] 05:05:00 Test Item Value Reference Range Interpretation Comments MPV (test code = MPV) 7.6 7.4-10.4 [facility] [id number] 05:05:00 Test Item Value Reference Range Interpretation Comments Segs (test code = Segs) 63.4 45.0-75.0 [facility] [id number] 05:05:00 Test Item Value Reference Range Interpretation Comments Lymphocytes (test code = Lymphocytes) 24.1 20.0-40.0 [place] [id number] 05:05:00 Test Item Value Reference Range Interpretation Comments Monocytes (test code = Monocytes) 8.8 2.0-12.0 [facility] [id number] 05:05:00 Test Item Value Reference Range Interpretation Comments Eosinophils (test code = 3.3 See_Comment [A utomated message] The Eosinophils) system which ge nerated this result tra nsmitted reference range : <=4.0. The reference r halle was not used to int erpret this result as normal/abnormal . [facility] [id number] 05:05:00 Test Item Value Reference Range Interpretation Comments Basophils (test code = 0.4 See_Comment [Aut omated message] The Basophils) system which ge nerated this result tra nsmitted reference range : <=1.0. The reference r halle was not used to int erpret this result as normal/abnormal . [facility] [id number] 05:05:00 Test Item Value Reference Range Interpretation Comments Neutrophils # (test code = Neutrophils 5.6 1.5-8.1 #) [facility] CenterOcffcmkZACACOKQNZ8544-98-17 05:05:00 Test Item Value Reference Range Interpretation Comments Lymphocytes # (test code = Lymphocytes 2.1 1.0-5.5 #) [facility] [id number] 05:05:00 Test Item Value Reference Range Interpretation Comments Monocytes # (test code 0.8 See_Comment [Aut omated message] The = Monocytes #) system which generated this result tra nsmitted reference range : <=0.8. The reference r halle was not used to int erpret this result as normal/abnormal . [facility] CenterXgeuepmQCCHEYNDJK6744-76-56 05:05:00 Test Item Value Reference Range Interpretation Comments Eosinophils # (test code 0.3 See_Comment [A utomated message] The = Eosinophils #) system whic h generated this result tra nsmitted reference range : <=0.5. The reference r halle was not used to int erpret this result as normal/abnormal . [place] 434581-06-08 08:10:00 Test Item Value Reference Range Interpretation Comments Glucose Lvl (test code = Glucose Lvl) 83 70-99 [place] 434581-06-08 08:10:00 Test Item Value Reference Range Interpretation Comments Creatinine Lvl (test code = Creatinine 0.39 0.50-1.40 Lvl) [place] 434581-06-08 08:10:00 Test Item Value Reference Range Interpretation Comments Sodium Lvl (test code = Sodium Lvl) 138 135-145 [place] 434581-06-08 08:10:00 Test Item Value Reference Range Interpretation Comments Potassium Lvl (test code = Potassium 3.7 3.5-5.1 Lvl) [facility]2021-06-08 08:10:00 Test Item Value Reference Range Interpretation Comments Chloride Lvl (test code = Chloride Lvl) 105 95-109 [place] 434581-06-08 08:10:00 Test Item Value Reference Range Interpretation Comments CO2 (test code = CO2) 23 24-32 [place] 434581-06-08 08:10:00 Test Item Value Reference Range Interpretation Comments Calcium Lvl (test code = Calcium Lvl) 9.3 8.5-10.5 [place] 434581-06-08 08:10:00 Test Item Value Reference Range Interpretation Comments AGAP (test code = AGAP) 13.7 10.0-20.0 [place] 434581-06-08 08:10:00 Test Item Value Reference Range Interpretation Comments eGFR (test code = eGFR) 130 [place] 434581-06-08 08:10:00 Test Item Value Reference Range Interpretation Comments BUN (test code = BUN) 7 7-22 [facility]2021-06-08 08:10:00 Test Item Value Reference Range Interpretation Comments Phosphorus (test code = Phosphorus) 2.9 2.5-4.5 [place] 518651-06-08 08:10:00 Test Item Value Reference Range Interpretation Comments Segs (test code = Segs) 61.0 45.0-75.0 [place] 518651-06-08 08:10:00 Test Item Value Reference Range Interpretation Comments Lymphocytes (test code = Lymphocytes) 26.4 20.0-40.0 [place] 518651-06-08 08:10:00 Test Item Value Reference Range Interpretation Comments Monocytes (test code = Monocytes) 9.7 2.0-12.0 [place] 518651-06-08 08:10:00 Test Item Value Reference Range Interpretation Comments Eosinophils (test code = 2.4 See_Comment [A utomated message] The Eosinophils) system which ge nerated this result tra nsmitted reference range : <=4.0. The reference r halle was not used to int erpret this result as normal/abnormal . [place] 518651-06-08 08:10:00 Test Item Value Reference Range Interpretation Comments Basophils (test code = 0.5 See_Comment [Aut omated message] The Basophils) system which ge nerated this result tra nsmitted reference range : <=1.0. The reference r halle was not used to int erpret this result as normal/abnormal . [place] 518651-06-08 08:10:00 Test Item Value Reference Range Interpretation Comments Neutrophils # (test code = Neutrophils 5.0 1.5-8.1 #) [place] 518651-06-08 08:10:00 Test Item Value Reference Range Interpretation Comments Lymphocytes # (test code = Lymphocytes 2.2 1.0-5.5 #) [place] 518651-06-08 08:10:00 Test Item Value Reference Range Interpretation Comments Monocytes # (test code 0.8 See_Comment [Aut omated message] The = Monocytes #) system which generated this result tra nsmitted reference range : <=0.8. The reference r halle was not used to int erpret this result as normal/abnormal . [facility] CenterLsuqnwwOJIHRQAHZH9812-60-09 08:10:00 Test Item Value Reference Range Interpretation Comments Eosinophils # (test code 0.2 See_Comment [A utomated message] The = Eosinophils #) system whic h generated this result tra nsmitted reference range : <=0.5. The reference r halle was not used to int erpret this result as normal/abnormal . [facility] CenterVhgwpzuOIWJADPEFV9796-08-30 08:10:00 Test Item Value Reference Range Interpretation Comments WBC (test code = WBC) 8.2 3.7-10.4 [place] 518651-06-08 08:10:00 Test Item Value Reference Range Interpretation Comments RBC (test code = RBC) 2.45 4.70-6.10 [place] 518651-06-08 08:10:00 Test Item Value Reference Range Interpretation Comments Hgb (test code = Hgb) 8.2 14.0-18.0 [place] 518651-06-08 08:10:00 Test Item Value Reference Range Interpretation Comments Hct (test code = Hct) 23.5 42.0-54.0 [place] 518651-06-08 08:10:00 Test Item Value Reference Range Interpretation Comments MCV (test code = MCV) 95.7 80.0-94.0 [facility] CenterOtxunpqZRLVGQHCNF3308-37-57 08:10:00 Test Item Value Reference Range Interpretation Comments MCH (test code = MCH) 33.4 pg 27.0-31.0 [place] 518651-06-08 08:10:00 Test Item Value Reference Range Interpretation Comments MCHC (test code = MCHC) 34.9 32.0-36.0 [place] 518651-06-08 08:10:00 Test Item Value Reference Range Interpretation Comments RDW (test code = RDW) 13.6 11.5-14.5 [place] 518651-06-08 08:10:00 Test Item Value Reference Range Interpretation Comments Platelet (test code = Platelet) 312 133-450 [place] 518651-06-08 08:10:00 Test Item Value Reference Range Interpretation Comments MPV (test code = MPV) 7.9 7.4-10.4 [place] 434581-06-07 10:32:00 Test Item Value Reference Range Interpretation Comments Phosphorus (test code = Phosphorus) 2.2 2.5-4.5 [place] 434581-06-07 10:32:00 Test Item Value Reference Range Interpretation Comments Magnesium Lvl (test code = Magnesium 2.1 1.8-2.4 Lvl) [facility]2021-06-07 10:32:00 Test Item Value Reference Range Interpretation Comments Glucose Lvl (test code = Glucose Lvl) 111 70-99 [facility]2021-06-07 10:32:00 Test Item Value Reference Range Interpretation Comments BUN (test code = BUN) 10 7-22 [facility]2021-06-07 10:32:00 Test Item Value Reference Range Interpretation Comments Creatinine Lvl (test code = Creatinine 0.49 0.50-1.40 Lvl) [facility]2021-06-07 10:32:00 Test Item Value Reference Range Interpretation Comments Sodium Lvl (test code = Sodium Lvl) 139 135-145 [facility]2021-06-07 10:32:00 Test Item Value Reference Range Interpretation Comments Potassium Lvl (test code = Potassium 3.4 3.5-5.1 Lvl) [facility]2021-06-07 10:32:00 Test Item Value Reference Range Interpretation Comments Chloride Lvl (test code = Chloride Lvl) 106 95-109 [facility]2021-06-07 10:32:00 Test Item Value Reference Range Interpretation Comments CO2 (test code = CO2) 26 24-32 [facility]2021-06-07 10:32:00 Test Item Value Reference Range Interpretation Comments Calcium Lvl (test code = Calcium Lvl) 8.5 8.5-10.5 [facility]2021-06-07 10:32:00 Test Item Value Reference Range Interpretation Comments AGAP (test code = AGAP) 10.4 10.0-20.0 [place] 434581-06-07 10:32:00 Test Item Value Reference Range Interpretation Comments eGFR (test code = eGFR) 119 [facility] CenterAwgikxzUOOMMHCROY6050-20-49 10:32:00 Test Item Value Reference Range Interpretation Comments Segs (test code = Segs) 51.8 45.0-75.0 [place] 518651-06-07 10:32:00 Test Item Value Reference Range Interpretation Comments Lymphocytes (test code = Lymphocytes) 36.0 20.0-40.0 [place] 518651-06-07 10:32:00 Test Item Value Reference Range Interpretation Comments Monocytes (test code = Monocytes) 11.0 2.0-12.0 [place] 518651-06-07 10:32:00 Test Item Value Reference Range Interpretation Comments Eosinophils (test code = 0.6 See_Comment [A utomated message] The Eosinophils) system which ge nerated this result tra nsmitted reference range : <=4.0. The reference r halle was not used to int erpret this result as normal/abnormal . [place] 518651-06-07 10:32:00 Test Item Value Reference Range Interpretation Comments Basophils (test code = 0.6 See_Comment [Aut omated message] The Basophils) system which ge nerated this result tra nsmitted reference range : <=1.0. The reference r halle was not used to int erpret this result as normal/abnormal . [facility] CenterGwrkfkuDZQFSPMEMY7061-16-87 10:32:00 Test Item Value Reference Range Interpretation Comments Neutrophils # (test code = Neutrophils 4.0 1.5-8.1 #) [facility] CenterQbsecduRHEOCKRAQV1258-14-19 10:32:00 Test Item Value Reference Range Interpretation Comments Lymphocytes # (test code = Lymphocytes 2.8 1.0-5.5 #) [place] 518651-06-07 10:32:00 Test Item Value Reference Range Interpretation Comments Monocytes # (test code 0.9 See_Comment [Aut omated message] The = Monocytes #) system which generated this result tra nsmitted reference range : <=0.8. The reference r halle was not used to int erpret this result as normal/abnormal . [place] 518651-06-07 10:32:00 Test Item Value Reference Range Interpretation Comments WBC (test code = WBC) 7.8 3.7-10.4 [place] 518651-06-07 10:32:00 Test Item Value Reference Range Interpretation Comments RBC (test code = RBC) 2.49 4.70-6.10 [facility] CenterWhtutkcFOCFTNCBAP2851-41-65 10:32:00 Test Item Value Reference Range Interpretation Comments Hgb (test code = Hgb) 8.2 14.0-18.0 [facility] CenterAtlnktpUYDWWENNEC8754-35-46 10:32:00 Test Item Value Reference Range Interpretation Comments Hct (test code = Hct) 23.7 42.0-54.0 [facility] CenterUunowubVADLQYSIKO8179-93-15 10:32:00 Test Item Value Reference Range Interpretation Comments MCV (test code = MCV) 95.3 80.0-94.0 [facility] CenterCdpajpyXELLCLHETU6846-89-16 10:32:00 Test Item Value Reference Range Interpretation Comments MCH (test code = MCH) 33.0 pg 27.0-31.0 [facility] CenterPuxsbqqBOQKYJWZUT0424-45-44 10:32:00 Test Item Value Reference Range Interpretation Comments MCHC (test code = MCHC) 34.6 32.0-36.0 [facility] CenterFtaznvjAXCYBWMNWX0582-39-57 10:32:00 Test Item Value Reference Range Interpretation Comments RDW (test code = RDW) 13.8 11.5-14.5 [facility] CenterRvyqgmeQRLMIPHWUI9847-54-96 10:32:00 Test Item Value Reference Range Interpretation Comments Platelet (test code = Platelet) 254 133-450 [facility] CenterUbureziSXTISAZFLZ8690-28-33 10:32:00 Test Item Value Reference Range Interpretation Comments MPV (test code = MPV) 7.9 7.4-10.4 [facility] CYQNKOF9234-97-39 03:19:00 Test Item Value Reference Range Interpretation Comments RBC product (test code Product available = RBC product) (12/17/20 10:19 PM) [facility] CenterVxghoyyZUFHZCYUFL2402-79-79 23:03:00 Test Item Value Reference Range Interpretation Comments Hgb (test code = Hgb) 7.1 14.0-18.0 [facility] CenterFhpzzoeODAPUMOSNB0300-72-83 23:03:00 Test Item Value Reference Range Interpretation Comments Hct (test code = Hct) 20.8 42.0-54.0 [facility]2021-06-06 08:47:00 Test Item Value Reference Range Interpretation Comments Glucose Lvl (test code = Glucose Lvl) 124 70-99 [facility] [place] 606281-06-06 08:47:00 Test Item Value Reference Range Interpretation Comments BUN (test code = BUN) 10 7-22 [place] 434581-06-06 08:47:00 Test Item Value Reference Range Interpretation Comments Creatinine Lvl (test code = Creatinine 0.62 0.50-1.40 Lvl) [place] 434581-06-06 08:47:00 Test Item Value Reference Range Interpretation Comments Sodium Lvl (test code = Sodium Lvl) 136 135-145 [place] 434581-06-06 08:47:00 Test Item Value Reference Range Interpretation Comments Potassium Lvl (test code = Potassium 4.0 3.5-5.1 Lvl) [place] 434581-06-06 08:47:00 Test Item Value Reference Range Interpretation Comments Chloride Lvl (test code = Chloride Lvl) 105 95-109 [place] 434581-06-06 08:47:00 Test Item Value Reference Range Interpretation Comments CO2 (test code = CO2) 27 24-32 [place] 434581-06-06 08:47:00 Test Item Value Reference Range Interpretation Comments Calcium Lvl (test code = Calcium Lvl) 8.3 8.5-10.5 [place] 434581-06-06 08:47:00 Test Item Value Reference Range Interpretation Comments AGAP (test code = AGAP) 8.0 10.0-20.0 [place] 434581-06-06 08:47:00 Test Item Value Reference Range Interpretation Comments eGFR (test code = eGFR) 108 [place] 434581-06-06 08:47:00 Test Item Value Reference Range Interpretation Comments Phosphorus (test code = Phosphorus) 2.2 2.5-4.5 [place] 518651-06-06 08:47:00 Test Item Value Reference Range Interpretation Comments Segs (test code = Segs) 68.5 45.0-75.0 [place] 518651-06-06 08:47:00 Test Item Value Reference Range Interpretation Comments Lymphocytes (test code = Lymphocytes) 18.5 20.0-40.0 [place] [address]-06-06 08:47:00 Test Item Value Reference Range Interpretation Comments Monocytes (test code = Monocytes) 12.8 2.0-12.0 [place] 518651-06-06 08:47:00 Test Item Value Reference Range Interpretation Comments Basophils (test code = 0.2 See_Comment [Aut omated message] The Basophils) system which ge nerated this result tra nsmitted reference range : <=1.0. The reference r halle was not used to int erpret this result as normal/abnormal . [facility] CenterRqkeafeUGEBKKBTCW9874-54-20 08:47:00 Test Item Value Reference Range Interpretation Comments Neutrophils # (test code = Neutrophils 5.6 1.5-8.1 #) [facility] CenterTeuxcrvAOJKDQIWNQ7248-01-57 08:47:00 Test Item Value Reference Range Interpretation Comments Lymphocytes # (test code = Lymphocytes 1.5 1.0-5.5 #) [facility] CenterAephdktCQIGCDXKWB6693-32-87 08:47:00 Test Item Value Reference Range Interpretation Comments Monocytes # (test code 1.0 See_Comment [Aut omated message] The = Monocytes #) system which generated this result tra nsmitted reference range : <=0.8. The reference r halle was not used to int erpret this result as normal/abnormal . [facility] CenterRrxvefcGHWLXWCWAQ9811-48-87 08:47:00 Test Item Value Reference Range Interpretation Comments WBC (test code = WBC) 8.1 3.7-10.4 [facility] CenterXkjwpaoYIMSLZKQGC4265-22-46 08:47:00 Test Item Value Reference Range Interpretation Comments RBC (test code = RBC) 2.27 4.70-6.10 [facility] CenterBsmioyhFXEJYARBIC7629-63-54 08:47:00 Test Item Value Reference Range Interpretation Comments Hgb (test code = Hgb) 7.7 14.0-18.0 [place] 518651-06-06 08:47:00 Test Item Value Reference Range Interpretation Comments Hct (test code = Hct) 21.8 42.0-54.0 [place] 518651-06-06 08:47:00 Test Item Value Reference Range Interpretation Comments MCV (test code = MCV) 96.2 80.0-94.0 [place] 518651-06-06 08:47:00 Test Item Value Reference Range Interpretation Comments MCH (test code = MCH) 34.0 pg 27.0-31.0 [place] 518651-06-06 08:47:00 Test Item Value Reference Range Interpretation Comments MCHC (test code = MCHC) 35.3 32.0-36.0 [place] 518651-06-06 08:47:00 Test Item Value Reference Range Interpretation Comments RDW (test code = RDW) 14.2 11.5-14.5 [place] 518651-06-06 08:47:00 Test Item Value Reference Range Interpretation Comments Platelet (test code = Platelet) 244 133-450 [facility] CenterWwmxvzzCYKLTDQGBP6007-38-73 08:47:00 Test Item Value Reference Range Interpretation Comments MPV (test code = MPV) 7.9 7.4-10.4 [facility]2021-06-05 09:22:00 Test Item Value Reference Range Interpretation Comments Vitamin B12 Lvl (test code = Vitamin 455 B12 Lvl) [facility]2021-06-05 09:22:00 Test Item Value Reference Range Interpretation Comments Folate Lvl (test code = Folate Lvl) 5.3 [place] 434581-06-05 09:22:00 Test Item Value Reference Range Interpretation Comments Glucose Lvl (test code = Glucose Lvl) 111 70-99 [place] 434581-06-05 09:22:00 Test Item Value Reference Range Interpretation Comments BUN (test code = BUN) 12 7-22 [place] 434581-06-05 09:22:00 Test Item Value Reference Range Interpretation Comments Creatinine Lvl (test code = Creatinine 0.55 0.50-1.40 Lvl) [place] 434581-06-05 09:22:00 Test Item Value Reference Range Interpretation Comments Sodium Lvl (test code = Sodium Lvl) 139 135-145 [place] 434581-06-05 09:22:00 Test Item Value Reference Range Interpretation Comments Potassium Lvl (test code = Potassium 4.2 3.5-5.1 Lvl) [place] 434581-06-05 09:22:00 Test Item Value Reference Range Interpretation Comments Chloride Lvl (test code = Chloride Lvl) 109 95-109 [place] 434581-06-05 09:22:00 Test Item Value Reference Range Interpretation Comments CO2 (test code = CO2) 24 24-32 [place] 434581-06-05 09:22:00 Test Item Value Reference Range Interpretation Comments Calcium Lvl (test code = Calcium Lvl) 8.7 8.5-10.5 [place] 434581-06-05 09:22:00 Test Item Value Reference Range Interpretation Comments AGAP (test code = AGAP) 10.2 10.0-20.0 [place] 434581-06-05 09:22:00 Test Item Value Reference Range Interpretation Comments eGFR (test code = eGFR) 113 [place] 434581-06-05 09:22:00 Test Item Value Reference Range Interpretation Comments Phosphorus (test code = Phosphorus) 2.0 2.5-4.5 [place] 434581-06-05 09:22:00 Test Item Value Reference Range Interpretation Comments Magnesium Lvl (test code = Magnesium 2.4 1.8-2.4 Lvl) [place] 518651-06-05 09:22:00 Test Item Value Reference Range Interpretation Comments WBC (test code = WBC) 7.7 3.7-10.4 [place] 518651-06-05 09:22:00 Test Item Value Reference Range Interpretation Comments RBC (test code = RBC) 3.46 4.70-6.10 [place] 518651-06-05 09:22:00 Test Item Value Reference Range Interpretation Comments Hgb (test code = Hgb) 11.4 14.0-18.0 [place] 518651-06-05 09:22:00 Test Item Value Reference Range Interpretation Comments Hct (test code = Hct) 33.2 42.0-54.0 [place] 518651-06-05 09:22:00 Test Item Value Reference Range Interpretation Comments MCV (test code = MCV) 96.0 80.0-94.0 [place] 518651-06-05 09:22:00 Test Item Value Reference Range Interpretation Comments MCH (test code = MCH) 33.1 pg 27.0-31.0 [place] 518651-06-05 09:22:00 Test Item Value Reference Range Interpretation Comments MCHC (test code = MCHC) 34.5 32.0-36.0 [place] 518651-06-05 09:22:00 Test Item Value Reference Range Interpretation Comments RDW (test code = RDW) 14.3 11.5-14.5 [place] 518651-06-05 09:22:00 Test Item Value Reference Range Interpretation Comments Platelet (test code = Platelet) 280 133-450 [place] 518651-06-05 09:22:00 Test Item Value Reference Range Interpretation Comments MPV (test code = MPV) 8.1 7.4-10.4 [place] 518651-06-05 09:22:00 Test Item Value Reference Range Interpretation Comments PTT (test code = PTT) 34.7 s 22.9-35.8 [place] 518651-06-05 09:22:00 Test Item Value Reference Range Interpretation Comments PT (test code = PT) 15.2 s 12.0-14.7 [place] 518651-06-05 09:22:00 Test Item Value Reference Range Interpretation Comments INR (test code = INR) 1.22 1 0.85-1.17 [place] 518651-06-05 09:22:00 Test Item Value Reference Range Interpretation Comments Segs (test code = Segs) 50.7 45.0-75.0 [place] 518651-06-05 09:22:00 Test Item Value Reference Range Interpretation Comments Lymphocytes (test code = Lymphocytes) 34.2 20.0-40.0 [place] 518651-06-05 09:22:00 Test Item Value Reference Range Interpretation Comments Monocytes (test code = Monocytes) 13.9 2.0-12.0 [place] 518651-06-05 09:22:00 Test Item Value Reference Range Interpretation Comments Eosinophils (test code = 0.7 See_Comment [A utomated message] The Eosinophils) system which ge nerated this result tra nsmitted reference range : <=4.0. The reference r halle was not used to int erpret this result as normal/abnormal . [place] 518651-06-05 09:22:00 Test Item Value Reference Range Interpretation Comments Basophils (test code = 0.5 See_Comment [Aut omated message] The Basophils) system which ge nerated this result tra nsmitted reference range : <=1.0. The reference r halle was not used to int erpret this result as normal/abnormal . [facility]johuuXUDIGNQOWT8919-55-84 09:22:00 Test Item Value Reference Range Interpretation Comments Neutrophils # (test code = Neutrophils 3.9 1.5-8.1 #) [facility] CenterLojnknrFJFCLLVQWT0268-88-90 09:22:00 Test Item Value Reference Range Interpretation Comments Lymphocytes # (test code = Lymphocytes 2.6 1.0-5.5 #) [facility] CenterPgqhxagXWYAAOFVZL8230-39-84 09:22:00 Test Item Value Reference Range Interpretation Comments Monocytes # (test code 1.1 See_Comment [Aut omated message] The = Monocytes #) system which generated this result tra nsmitted reference range : <=0.8. The reference r halle was not used to int erpret this result as normal/abnormal . [facility] CenterGgtkbojAGLIBIVITN6081-73-04 09:22:00 Test Item Value Reference Range Interpretation Comments Eosinophils # (test code 0.1 See_Comment [A utomated message] The = Eosinophils #) system whic h generated this result tra nsmitted reference range : <=0.5. The reference r halle was not used to int erpret this result as normal/abnormal . [facility]NbbfpabNWYFZBIRLW1040-84-85 20:43:00 Test Item Value Reference Range Interpretation Comments Coronavirus (COVID-19) Not Detected (12/15/20 BONNIE (test code = 3:43 PM) Coronavirus (COVID-19) BONNIE) [facility] CenterUrbful BBXJATB6206-87-94 20:25:00 Test Item Value Reference Range Interpretation Comments ABO/Rh (test code = ABO/Rh) O POS [facility] [employer] KYBHAZV2729-92-21 20:25:00 Test Item Value Reference Range Interpretation Comments Antibody Scrn (test Negative (12/15/20 3:25 code = Antibody Scrn) PM) [facility] [employer]2021-06-04 20:10:00 Test Item Value Reference Range Interpretation Comments Glucose Lvl (test code = Glucose Lvl) 127 70-99 [facility] [employer] ERQEY7113-80-77 20:10:00 Test Item Value Reference Range Interpretation Comments BUN (test code = BUN) 11 7-22 [facility] [employer]2021-06-04 20:10:00 Test Item Value Reference Range Interpretation Comments Creatinine Lvl (test code = Creatinine 0.63 0.50-1.40 Lvl) [place] 434581-06-04 20:10:00 Test Item Value Reference Range Interpretation Comments Sodium Lvl (test code = Sodium Lvl) 138 135-145 [place] 434581-06-04 20:10:00 Test Item Value Reference Range Interpretation Comments Potassium Lvl (test code = Potassium 4.5 3.5-5.1 Lvl) [place] 434581-06-04 20:10:00 Test Item Value Reference Range Interpretation Comments Chloride Lvl (test code = Chloride Lvl) 110 95-109 [place] 434581-06-04 20:10:00 Test Item Value Reference Range Interpretation Comments CO2 (test code = CO2) 21 24-32 [place] 434581-06-04 20:10:00 Test Item Value Reference Range Interpretation Comments Calcium Lvl (test code = Calcium Lvl) 8.6 8.5-10.5 [place] 434581-06-04 20:10:00 Test Item Value Reference Range Interpretation Comments Total Protein (test code = Total 7.2 6.4-8.4 Protein) [facility]2021-06-04 20:10:00 Test Item Value Reference Range Interpretation Comments Albumin Lvl (test code = Albumin Lvl) 3.2 3.5-5.0 [place] 434581-06-04 20:10:00 Test Item Value Reference Range Interpretation Comments ALANINE AMINOTRANSFERASE 32 See_Comment [A utomated message] (test code = ALANINE The sys tem which AMINOTRANSFERASE) generated this result transmitted ref erence range: <=65. Th e reference range was not used to int erpret this result as normal/abnormal . [place] 434581-06-04 20:10:00 Test Item Value Reference Range Interpretation Comments ASPARTATE TRANSAMINASE 38 See_Comment [Aut omated message] (test code = ASPARTATE The s ystem which TRANSAMINASE) generated this result transmitted ref erence range: <=37. Th e reference range was not used to interpr et this result as normal/abnormal . [place] 434581-06-04 20:10:00 Test Item Value Reference Range Interpretation Comments Alk Phos (test code = Alk Phos) 45 39-136 [facility]2021-06-04 20:10:00 Test Item Value Reference Range Interpretation Comments Bili Total (test code = Bili Total) 1.2 0.2-1.3 [place] [id number] 20:10:00 Test Item Value Reference Range Interpretation Comments AGAP (test code = AGAP) 11.5 10.0-20.0 [place] [id number] 20:10:00 Test Item Value Reference Range Interpretation Comments B/C Ratio (test code = B/C Ratio) 17 1 6-25 [place] [id number] 20:10:00 Test Item Value Reference Range Interpretation Comments Globulin (test code = Globulin) 4.0 2.7-4.2 [place] [id number] 20:10:00 Test Item Value Reference Range Interpretation Comments A/G Ratio (test code = A/G Ratio) 0.8 1 0.7-1.6 [place] 434581-06-04 20:10:00 Test Item Value Reference Range Interpretation Comments eGFR (test code = eGFR) 107 [facility]pl[facility]XPTNIIKDW9906-37-09 20:10:00 Test Item Value Reference Range Interpretation Comments WBC X 10x3 (test code = WBC X 10x3) 8.3 3.7-10.4 [facility]ApjcfnfZRMIDUUQVG4435-03-59 20:10:00 Test Item Value Reference Range Interpretation Comments RBC X 10x6 (test code = RBC X 10x6) 4.01 4.70-6.10 [place] 518651-06-04 20:10:00 Test Item Value Reference Range Interpretation Comments MCV (test code = MCV) 96.6 80.0-94.0 [place] 46477-06-04 20:10:00 Test Item Value Reference Range Interpretation Comments MCH (test code = MCH) 32.2 pg 27.0-31.0 [place] 518651-06-04 20:10:00 Test Item Value Reference Range Interpretation Comments MCHC (test code = MCHC) 33.3 32.0-36.0 [place] 518651-06-04 20:10:00 Test Item Value Reference Range Interpretation Comments RDW (test code = RDW) 14.3 11.5-14.5 [facility] CenterDhalswrANGHODBUED0213-47-91 20:10:00 Test Item Value Reference Range Interpretation Comments Platelet (test code = Platelet) 330 133-450 [facility] CenterGgjgbkeEOJDJCFATV4028-50-56 20:10:00 Test Item Value Reference Range Interpretation Comments MPV (test code = MPV) 8.2 7.4-10.4 [facility] CenterBldtfnmKMWUQHAPXR7305-66-21 20:10:00 Test Item Value Reference Range Interpretation Comments PT (test code = PT) 13.3 s 12.0-14.7 [place] 518651-06-04 20:10:00 Test Item Value Reference Range Interpretation Comments INR (test code = INR) 1.02 1 0.85-1.17 [facility] CenterKmkjasxEJMSJFPLPB4819-45-69 20:10:00 Test Item Value Reference Range Interpretation Comments PTT (test code = PTT) 30.9 s 22.9-35.8 [facility] CenterPwhergaMQFBAAFOAR8223-29-32 20:10:00 Test Item Value Reference Range Interpretation Comments Segs (test code = Segs) 73.4 45.0-75.0 [facility] CenterJhzikmnVOQOGZXHXO5457-16-37 20:10:00 Test Item Value Reference Range Interpretation Comments Lymphocytes (test code = Lymphocytes) 14.5 20.0-40.0 [facility] CenterCoenehmMYVNGFLUIH5768-55-35 20:10:00 Test Item Value Reference Range Interpretation Comments Monocytes (test code = Monocytes) 11.8 2.0-12.0 [facility] CenterKqvngezIDIZLUVLVG6071-56-28 20:10:00 Test Item Value Reference Range Interpretation Comments Basophils (test code = 0.3 See_Comment [Aut omated message] The Basophils) system which ge nerated this result tra nsmitted reference range : <=1.0. The reference r halle was not used to int erpret this result as normal/abnormal . [facility] CenterShuovnsZKERULRNZG0722-51-17 20:10:00 Test Item Value Reference Range Interpretation Comments Neutrophils # (test code = Neutrophils 6.1 1.5-8.1 #) [facility] CenterOujpvoxYFYWZEXWIK7724-04-17 20:10:00 Test Item Value Reference Range Interpretation Comments Lymphocytes # (test code = Lymphocytes 1.2 1.0-5.5 #) [facility] CenterMosdutjNPHDRLGIMM6766-97-12 20:10:00 Test Item Value Reference Range Interpretation Comments Monocytes # (test code 1.0 See_Comment [Aut omated message] The = Monocytes #) system which generated this result tra nsmitted reference range : <=0.8. The reference r halle was not used to int erpret this result as normal/abnormal . [facility]2019-02-19 17:25:00 Test Item Value Reference Range Interpretation Comments eGFR (test code = eGFR) 128 [facility]2019-02-19 17:25:00 Test Item Value Reference Range Interpretation Comments POC Creatinine (test code = POC 0.6 0.5-1.4 Creatinine) [facility]2017-12-05 16:16:00 Test Item Value Reference Range Interpretation Comments eGFR (test code = eGFR) 121 [facility]2017-12-05 16:16:00 Test Item Value Reference Range Interpretation Comments POC Creatinine (test code = POC 0.7 0.5-1.4 Creatinine) [facility]2017-11-13 16:20:00 Test Item Value Reference Range Interpretation Comments eGFR (test code = eGFR) 120 [facility]2017-11-13 16:20:00 Test Item Value Reference Range Interpretation Comments Creatinine Lvl (test code = Creatinine 0.71 0.50-1.40 Lvl) [facility]2015-10-12 15:06:00 Test Item Value Reference Range Interpretation Comments Creatinine Lvl (test code = Creatinine 0.8 0.5-1.4 Lvl) [facility]2015-10-12 15:06:00 Test Item Value Reference Range Interpretation Comments eGFR (test code = eGFR) 116 [facility]2014-10-20 15:35:00 Test Item Value Reference Range Interpretation Comments Creatinine Lvl (test code = Creatinine 0.7 0.5-1.4 Lvl) [facility]2014-10-20 15:35:00 Test Item Value Reference Range Interpretation Comments eGFR (test code = eGFR) 124 [facility]64[facility]69-02 14:45:00 Test Item Value Reference Range Interpretation Comments eGFR (test code = eGFR) 125 [facility]JoypmndJGSPEJCHC5754-50-67 14:45:00 Test Item Value Reference Range Interpretation Comments Creatinine Lvl (test code = Creatinine 0.7 0.5-1.4 N Lvl) [facility]DchfgqyIOZGSJHRU9304-06-50 14:45:00 Test Item Value Reference Range Interpretation Comments PSA (test code = PSA) 1.12 See_Comment N [Auto mated message] The system which ge nerated this result transmit ricardo reference range : <=4.00. The reference r halle was not used to interpr et this result as chris l/abnormal. [facility] HospitalObcogkpNORPIFQCU5482-98-81 21:19:00 Test Item Value Reference Range Interpretation Comments PSA (test code = PSA) 0.82 See_Comment N [Auto mated message] The system which ge nerated this result transmit ricardo reference range : <=4.00. The reference r halle was not used to interpr et this result as chris l/abnormal. [facility] HospitalSijxitwKSHCMUBQU7788-26-13 21:19:00 Test Item Value Reference Range Interpretation Comments Total CK (test code = Total CK) 620 12-191 H [facility]
[2022-05-07] MEDS ORDERED: HYDROCODONE/APAP 5/325 MG TAB ONE (11:14)
[2022-05-07 11:23] LABS: Urine Blood Negative (Negative); Urine Glucose Negative (Negative); Urine Protein Negative (Negative); Urine Specific Gravity 1.015 (1.005-1.030)
--- NOTE | 2022-05-07 11:32 | ER ---
Nurse's Notes [facility] Name: Rogelio Pringle Age: 61 yrs Sex: Male : 1960 Arrival Date: 05/07/2022 Time: 10:00 Bed 18 Private MD: Nata Marcos Diagnosis: UTI/ Urinary tract infection, site not specified Presentation: 05/07 10:14 Chief complaint: Patient states: Fever 102.1 yesterday. States he has frequent UTI's. ll1 Coronavirus screen: Vaccine status: Patient reports receiving the 2nd dose of the covid vaccine. Client denies travel out of the [place] in the last 14 days. fatigue, fever, Client presents with at least one sign or symptom that may indicate coronavirus-19. Standard/surgical mask placed on the client. Ebola Screen: Patient denies travel to an Ebola-affected area in the 21 days before illness onset. Initial Sepsis Screen: Does the patient meet any 2 criteria? No. Patient's initial sepsis screen is negative. Does the patient have a suspected source of infection? No. Patient's initial sepsis screen is negative. Risk Assessment: Do you want to hurt yourself or someone else? Patient reports no desire to harm self or others. Onset of symptoms was May 06, 2022. 10:14 Method Of Arrival: Wheelchair ll1 10:14 Acuity: ROSA 3 ll1 Triage Assessment: 10:16 General: Appears uncomfortable, Behavior is cooperative, appropriate for age. Pain: ll1 Complains of pain in right leg and left leg. Neuro: Reports fever. Historical: - Allergies: 10:13 Sulfa (Sulfonamide Antibiotics); ll1 - PMHx: 10:13 chronic pain in BLE; High Cholesterol; Hypertension; paraplegic s/p back injury; ll1 - PSHx: 10:13 hip and back SX; ll1 - Immunization history:: Client reports receiving the 2nd dose of the Covid vaccine. - Social history:: Smoking status: Patient denies any tobacco usage or history of. Screenin:40 Abuse screen: Denies threats or abuse. Denies injuries from another. Nutritional db screening: No deficits noted. Nutritional screening: No deficits noted. Tuberculosis screening: No symptoms or risk factors identified. Fall Risk None identified. No fall in past 12 months (0 pts). No secondary diagnosis (0 pts). No IV (0 pts). Ambulatory Aid- None/Bed Rest/Nurse Assist (0 pts). Gait- Normal/Bed Rest/Wheelchair (0 pts) Mental Status- Oriented to own ability (0 pts). Total Dav[place] Fall Scale indicates No Risk (0-24 pts). Assessment: 10:38 Reassessment: Patient appears in no apparent distress at this time. states thinks has a db urinary tract infection. Symptoms since yesterday with fever. Self caths. General: Appears in no apparent distress. comfortable, Behavior is calm, cooperative, appropriate for age, quiet. Pain: Complains of pain in abdomen. : Reports thinks has urinary symptoms. Vital Signs: 10:14 BP 143 / 86; Pulse 104; Resp 18; Temp 98.5; Pulse Ox 96% on R/A; Weight 72.57 kg; ll1 Height 5 ft. 9 in. (175.26 cm); 11:45 BP 142 / 85; Pulse 98; Resp 16; Temp 98.8(O); Pulse Ox 98% ; db 10:14 Body Mass Index 23.63 (72.57 kg, 175.26 cm) ll1 ED Course: 10:00 Patient arrived in ED. am2 10:00 Nata Marcos FNP-C is Private Physician. am2 10:07 Melanie Reyes MD is Attending Physician. sp3 10:13 Arm band placed on Patient placed in an exam room, on a stretcher. ll1 10:16 Triage completed. ll1 10:38 Lauren Servin, RN is Primary Nurse. db 10:40 No provider procedures requiring assistance completed. db 11:45 Patient has correct armband on for positive identification. Call light in reach. db 11:45 Patient did not have IV access during this emergency room visit. db Administered Medications: 10:40 Drug: HYDROcodone-acetaminophen 5 mg-325 mg 2 tabs Route: PO; db 11:35 Follow up: Response: No adverse reaction db Medication: 11:45 VIS not applicable for this client. db Outcome: 11:32 Discharge ordered by . sp3 11:45 Discharged to home via wheelchair. db 11:45 Condition: stable 11:45 Discharge instructions given to patient, Instructed on discharge instructions, follow up and referral plans. Demonstrated understanding of instructions, Prescriptions given X 1. 12:11 Patient left the ED. db Signatures: Desiree Finnegan Lynsay, RN RN ll1 Melanie Reyes MD MD sp3 Lauren Servin RN RN db
--- NOTE | 2022-05-07 11:32 | EDPHYS ---
Physician Documentation [facility] Name: Rogelio Pringle Age: 61 yrs Sex: Male : 1960 Arrival Date: 05/07/2022 Time: 10:00 Bed 18 Private MD: Nata Marcos ED Physician Melanie Reyes HPI: 05/07 10:31 This 61 yrs old Black Male presents to ER via Wheelchair with complaints of Fever. sp3 10:31 61-year-old male with a history of hypertension, hyperlipidemia, paraplegia, chronic sp3 pain bilateral lower extremities presents with chief complaint of dysuria, cloudy urine, and fever (now resolved) since yesterday. Patient said he took an old "Cipro" that he had x1 yesterday. He denies any abdominal pain, back pain, flank pain, headache, URI symptoms, rash, any other aspects or symptoms on ROS at this time. Patient has had a history of frequent UTIs in the past. He states that his urologist recently did a cystoscopy which was "normal".. Historical: - Allergies: 10:13 Sulfa (Sulfonamide Antibiotics); ll1 - PMHx: 10:13 chronic pain in BLE; High Cholesterol; Hypertension; paraplegic s/p back injury; ll1 - PSHx: 10:13 hip and back SX; ll1 - Immunization history:: Client reports receiving the 2nd dose of the Covid vaccine. - Social history:: Smoking status: Patient denies any tobacco usage or history of. ROS: 10:32 Constitutional: Negative for fever, chills, and weight loss, Eyes: Negative for injury, sp3 pain, redness, and discharge, ENT: Negative for injury, pain, and discharge, Neck: Negative for injury, pain, and swelling, Cardiovascular: Negative for chest pain, palpitations, and edema, Respiratory: Negative for shortness of breath, cough, wheezing, and pleuritic chest pain, Back: Negative for injury and pain, MS/Extremity: Negative for injury and deformity, Skin: Negative for injury, rash, and discoloration, Psych: Negative for depression, anxiety, suicide ideation, homicidal ideation, and hallucinations, Allergy/Immunology: Negative for hives, rash, and allergies, Endocrine: Negative for neck swelling, polydipsia, polyuria, polyphagia, and marked weight changes. 10:32 All other systems are negative. Vital Signs: 10:14 BP 143 / 86; Pulse 104; Resp 18; Temp 98.5; Pulse Ox 96% on R/A; Weight 72.57 kg; ll1 Height 5 ft. 9 in. (175.26 cm); 11:45 BP 142 / 85; Pulse 98; Resp 16; Temp 98.8(O); Pulse Ox 98% ; db 10:14 Body Mass Index 23.63 (72.57 kg, 175.26 cm) ll1 MDM: 10:28 Patient medically screened. sp3 10:32 Data reviewed: vital signs, nurses notes. ED course: 61-year-old male with multiple sp3 medical problems presents with dysuria and fever. Differential diagnosis includes UTI, cystitis, nephritis, urethritis. I am not highly suspicious for intra-abdominal/GI process or vascular process including aortic aneurysm or dissection. Patient is not septic or toxic at all. Patient has chronic bilateral lower extremity pain and is requesting pain medication. Will give St[place] 2 tabs p.o. x1 and obtain urine sample. If urine is positive for infection, we will treat accordingly with outpatient follow-up with this urologist. Vital signs are stable and repeat heart rate is 88 on my physical exam.. 11:31 ED course: Urinalysis demonstrates positive leukocyte esterase. Will discharge patient sp3 on p.o. Bactrim for 7 days and have him follow-up with his urologist.. 05/07 10:28 Order name: Urine Microscopic Only sp3 05/07 10:28 Order name: Urine Culture sp3 05/07 10:28 Order name: Urine Dipstick-Ancillary (obtain specimen); Complete Time: 12:11 sp3 05/07 11:23 Order name: Urine Dipstick-Ancillary; Complete Time: 11:30 EDMS Administered Medications: 10:40 Drug: HYDROcodone-acetaminophen 5 mg-325 mg 2 tabs Route: PO; db 11:35 Follow up: Response: No adverse reaction db Disposition Summary: 05/07/22 11:32 Discharge Ordered Location: Home sp3 Condition: Stable sp3 Diagnosis - UTI/ Urinary tract infection, site not specified sp3 Followup: sp3 - With: Private Physician - When: Upon discharge from the Emergency Department - Reason: Recheck today's complaints Discharge Instructions: - Discharge Summary Sheet sp3 - Urinary Tract Infection, Adult sp3 Forms: - Medication Reconciliation Form sp3 - Thank You Letter sp3 - Antibiotic Education sp3 - Prescription Opioid Use sp3 Prescriptions: - levofloxacin 500 mg Oral Tablet - take 1 tablet by ORAL route once daily for 7 days; 7 tablet; Refills: 0, sp3 Product Selection Permitted Signatures: Dispatcher [employer] Bouchra Siddiqui RN RN ll1 Melanie Reyes MD MD sp3 Lauren Servin RN RN db
[2022-05-07 12:12] LABS: Urine Bacteria <20 /HPF (<20); Urine Mucus Slight /HPF (None Seen); Urine RBC <5 /HPF (None Seen)
[2022-05-07 12:37] VITALS: BP 142/85; TEMP 98.8; O2SAT 98
== END 2022-05-07 12:11 | disposition home or self-care (01) ==
LOC: ER 09:57
DX: N39.0 Urinary tract infection, site not specified (principal); I10 Essential (primary) hypertension; Z88.2 Allergy status to sulfonamides
CPT/HCPCS: 81003; 81015; 87086; 87088; 99283

== ENCOUNTER 2022-11-26 11:31 | Observation (INO) | payer OTHER ==
--- OUTSIDE RECORDS SUMMARY | 2022-11-26 11:38 | XMS REPORT | Continuity of Care Document ---
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 Gabapentin 400 MG 400 MG le} 400 MG Pravastatin Pravastatin No Pravastati Sodium 40 Sodium 40 n Sodium MG MG 40 MG amLODIPine amLODIPine No QD amLODIPine Besylate 5 Besylate 5 Besylate 5 MG MG MG Enalapril Enalapril No QD Enalapril Maleate 20 Maleate 20 Maleate 20 [...] [facility] Vaccine 16:59:00 - [facility] Moderna COVID-19 Moderna COVID-19 2021-03-31 Completed [facility] Vaccine Vaccine 16:59:00 - [facility] Moderna COVID-19 Moderna COVID-19 2021-03-31 Completed [facility] Vaccine Vaccine 16:59:00 - [facility] Moderna COVID-19 Moderna COVID-19 2021-03-31 Completed [facility] Vaccine Vaccine 16:59:00 - [facility] Moderna COVID-19 Moderna COVID-19 2021-03-31 Completed [facility] Vaccine Vaccine 16:59:00 - [facility] Moderna COVID-19 Moderna COVID-19 2021-03-31 Completed [facility] Vaccine Vaccine 16:59:00 - [facility] Moderna COVID-19 Moderna COVID-19 2021-03-31 Completed [facility] Vaccine Vaccine 16:59:00 - [facility] Moderna COVID-19 Moderna COVID-19 2021-03-31 Completed [facility] Vaccine Vaccine 16:59:00 - [facility] Moderna COVID-19 Moderna COVID-19 2021-03-31 Completed [facility] Vaccine Vaccine 16:59:00 - [facility] Moderna COVID-19 Moderna COVID-19 2021-03-31 Completed [facility] Vaccine Vaccine 16:59:00 - [facility] Moderna COVID-19 Moderna COVID-19 2021-03-31 Completed [facility] Vaccine Vaccine 16:59:00 - [facility] Moderna COVID-19 Moderna COVID-19 2021-03-31 Completed [facility] Vaccine Vaccine 16:59:00 - [facility] Moderna COVID-19 Moderna COVID-19 2021-03-31 Completed [facility] Vaccine Vaccine 16:59:00 - [facility] Moderna COVID-19 Moderna COVID-19 2021-03-31 Completed [facility] Vaccine Vaccine 16:59:00 - [facility] Moderna COVID-19 Moderna COVID-19 2021-03-31 Completed [facility] Vaccine Vaccine 16:59:00 - [facility] Moderna COVID-19 Moderna COVID-19 2021-03-31 Completed [facility] Vaccine Vaccine 16:59:00 - [facility] Moderna COVID-19 Moderna COVID-19 2021-03-31 Completed [facility] Vaccine Vaccine 16:59:00 - [facility] Moderna COVID-19 Moderna COVID-19 2021-03-31 Completed [facility] Vaccine Vaccine 16:59:00 - [facility] Moderna COVID-19 Moderna COVID-19 2021-03-31 Completed [facility] Vaccine Vaccine 16:59:00 - [facility] Moderna COVID-19 Moderna COVID-19 2021-03-31 Completed [facility] Vaccine Vaccine 16:59:00 - [facility] Moderna COVID-19 Moderna COVID-19 2021-03-31 Completed [facility] Vaccine Vaccine 16:59:00 - [facility] Moderna COVID-19 Moderna COVID-19 2021-03-31 Completed [facility] Vaccine Vaccine 16:59:00 - [facility] Moderna COVID-19 Moderna COVID-19 2021-03-31 Completed [facility] Vaccine Vaccine 16:59:00 - [facility] Moderna COVID-19 Moderna COVID-19 2021-03-31 Completed [facility] Vaccine Vaccine 16:59:00 - [facility] Moderna COVID-19 Moderna COVID-19 2021-03-31 Completed [facility] Vaccine Vaccine 16:59:00 - [facility] Moderna COVID-19 Moderna COVID-19 2021-03-31 Completed [facility] Vaccine Vaccine 16:59:00 - [facility] Moderna COVID-19 Moderna COVID-19 2021-03-31 Completed [facility] Vaccine Vaccine 16:59:00 - [facility] Moderna COVID-19 Moderna COVID-19 2021-03-31 Completed [facility] Vaccine Vaccine 16:59:00 - [facility] Moderna COVID-19 Moderna COVID-19 2021-03-31 Completed [facility] Vaccine Vaccine 16:59:00 - [facility] Moderna COVID-19 Moderna COVID-19 2021-03-31 Completed [facility] Vaccine Vaccine 16:59:00 [facility] Vital Signs Vital Name Observation Time Observation Value Comments Source height 2022-07-04 15:00:00 69 [in_i] [facility] weight 2022-07-04 15:00:00 165 [lb_av] [facility] temperature 2022-07-04 15:00:00 98.1 [degF] [facility] bmi 2022-07-04 15:00:00 24.36 kg/m2 [facility] oximetry 2022-07-04 15:00:00 97 % [facility] respiratory rate 2022-07-04 15:00:00 16 /min Comm on [facility] blood pressure 2022-07-04 15:00:00 146 mm[Hg] [facility] - systolic [facility] blood pressure 2022-07-04 15:00:00 77 mm[Hg] [facility] - diastolic [facility] height 2022-07-03 16:00:00 69 [in_i] Common S pirit [facility] weight 2022-07-03 16:00:00 165 [lb_av] Common [facility] temperature 2022-07-03 16:00:00 98.1 [degF] Common S [facility]irit [facility] bmi 2022-07-03 16:00:00 24.36 kg/m2 Common S [facility]irit [facility] oximetry 2022-07-03 16:00:00 98 % Common S [facility]irit [facility] respiratory rate 2022-07-03 16:00:00 16 /min Comm on [facility] blood pressure 2022-07-03 16:00:00 132 mm[Hg] [facility] - systolic [facility] blood pressure 2022-07-03 16:00:00 78 mm[Hg] [facility] - [facility] height 2022-05-10 10:15:00 69 [in_i] Common S pirit [facility] weight 2022-05-10 10:15:00 165 [lb_av] Common [facility] temperature 2022-05-10 10:15:00 97.6 [degF] Common S [facility]irit [facility] bmi 2022-05-10 10:15:00 24.36 kg/m2 Common [facility] oximetry 2022-05-10 10:15:00 96 % [facility] respiratory rate 2022-05-10 10:15:00 16 /min Comm on [facility] blood pressure 2022-05-10 10:15:00 137 mm[Hg] [facility] - [facility] blood pressure 2022-05-10 10:15:00 86 mm[Hg] [facility] - [facility] height 2022-04-08 09:20:00 69 [in_i] Common S pirit [facility] weight 2022-04-08 09:20:00 165 [lb_av] Common [facility] temperature 2022-04-08 09:20:00 99.0 [degF] Common S pirit [facility] bmi 2022-04-08 09:20:00 24.36 kg/m2 Common S pirit [facility] oximetry 2022-04-08 09:20:00 98 % Common [facility] respiratory rate 2022-04-08 09:20:00 17 /min Comm on [facility] blood pressure 2022-04-08 09:20:00 135 mm[Hg] Common [facility] - systolic [facility] blood pressure 2022-04-08 09:20:00 69 mm[Hg] [facility] - [facility] height 2022-03-07 13:00:00 69 [in_i] Common S pirit [facility] weight 2022-03-07 13:00:00 165 [lb_av] Common [facility] temperature 2022-03-07 13:00:00 98.9 [degF] Common S pirit [facility] bmi 2022-03-07 13:00:00 24.36 kg/m2 [facility] oximetry 2022-03-07 13:00:00 98 % Common [facility] respiratory rate 2022-03-07 13:00:00 17 /min Comm on [facility] blood pressure 2022-03-07 13:00:00 132 mm[Hg] [facility] - [facility] blood pressure 2022-03-07 13:00:00 78 mm[Hg] [facility] - [facility] height 2022-01-22 13:20:00 69 [in_i] Common S pirit [facility] weight 2022-01-22 13:20:00 160 [lb_av] Common [facility] temperature 2022-01-22 13:20:00 98.1 [degF] Common [facility] bmi 2022-01-22 13:20:00 23.63 kg/m2 Common [facility] oximetry 2022-01-22 13:20:00 99 % Common [facility] respiratory rate 2022-01-22 13:20:00 16 /min Comm on [facility] blood pressure 2022-01-22 13:20:00 134 mm[Hg] Common [facility] - systolic [facility] blood pressure 2022-01-22 13:20:00 76 mm[Hg] Common [facility] - diastolic [facility] height 2021-12-13 14:15:00 69 [in_i] [facility] weight 2021-12-13 14:15:00 160 [lb_av] Common [facility] temperature 2021-12-13 14:15:00 97.9 [degF] Common [facility] bmi 2021-12-13 14:15:00 23.63 kg/m2 Common [facility] oximetry 2021-12-13 14:15:00 99 % [facility] respiratory rate 2021-12-13 14:15:00 16 /min Comm on [facility] blood pressure 2021-12-13 14:15:00 168 mm[Hg] Common [facility] - systolic [facility] blood pressure 2021-12-13 14:15:00 80 mm[Hg] [facility] - diastolic [facility] temperature 2021-10-23 13:20:00 97.4 [degF] Common [facility] bmi 2021-10-23 13:20:00 25.1 kg/m2 [facility] oximetry 2021-10-23 13:20:00 97 % Common [facility] respiratory rate 2021-10-23 13:20:00 16 /min Comm on [facility] blood pressure 2021-10-23 13:20:00 132 mm[Hg] Common [facility] - systolic [facility] blood pressure 2021-10-23 13:20:00 70 mm[Hg] Common [facility] - diastolic [facility] height 2021-10-23 13:20:00 69 [in_i] Common [facility] weight 2021-10-23 13:20:00 170 [lb_av] Common [facility] height 2021-10-08 08:30:00 69 [in_i] [facility] weight 2021-10-08 08:30:00 170 [lb_av] [facility] temperature 2021-10-08 08:30:00 97.6 [degF] [facility] bmi 2021-10-08 08:30:00 25.1 kg/m2 [facility] oximetry 2021-10-08 08:30:00 97 % [facility] respiratory rate 2021-10-08 08:30:00 16 /min Comm on [facility] blood pressure 2021-10-08 08:30:00 173 mm[Hg] Common [facility] - systolic [facility] blood pressure 2021-10-08 08:30:00 87 mm[Hg] Common [facility] - diastolic [facility] height 2021-07-26 09:00:00 69 [in_i] Common [facility] weight 2021-07-26 09:00:00 165 [lb_av] [facility] temperature 2021-07-26 09:00:00 97.3 [degF] [facility] bmi 2021-07-26 09:00:00 24.36 kg/m2 [facility] oximetry 2021-07-26 09:00:00 98 % [facility] respiratory rate 2021-07-26 09:00:00 16 /min Comm on [facility] blood pressure 2021-07-26 09:00:00 136 mm[Hg] [facility] - systolic [facility] blood pressure 2021-07-26 09:00:00 74 mm[Hg] [facility] - diastolic [facility] height 2021-05-18 13:00:00 69 [in_i] Common [facility] - [facility] weight 2021-05-18 13:00:00 165 [lb_av] Common S pirit [facility] temperature 2021-05-18 13:00:00 98.7 [degF] [facility] 2021-05-18 13:00:00 24.36 kg/m2 Common S pirit [facility] oximetry 2021-05-18 13:00:00 97 % [facility] blood pressure 2021-05-18 13:00:00 137 mm[Hg] [facility] - systolic [facility] blood pressure 2021-05-18 13:00:00 83 mm[Hg] [facility] - diastolic [facility] height 2021-04-30 13:00:00 69 [in_i] [facility] weight 2021-04-30 13:00:00 165 [lb_av] Common S pirit [facility] temperature 2021-04-30 13:00:00 97.8 [degF] Common [facility]irit - [facility] bmi 2021-04-30 13:00:00 24.36 kg/m2 Common S pirit [facility] oximetry 2021-04-30 13:00:00 95 % Common S pirit [facility] respiratory rate 2021-04-30 13:00:00 16 /min Comm on [facility] blood pressure 2021-04-30 13:00:00 122 mm[Hg] [facility] - systolic [facility] blood pressure 2021-04-30 13:00:00 66 mm[Hg] [facility] - diastolic [facility] height 2021-04-04 15:00:00 69 [in_i] Common [facility] - [facility] weight 2021-04-04 15:00:00 165 [lb_av] Common [facility] - [facility] bmi 2021-04-04 15:00:00 24.36 kg/m2 [facility] S pirit [facility] Temperature Oral (F) 2020 01:31:00 98.6 F [facility] Heart Rate 2020 01:31:00 [facility] Respitory Rate 2020 01:31:00 [facility] Systolic (mm Hg) 2020 01:31:00 Shar [facility] Diastolic (mm Hg) 2020 01:31:00 [facility] Temperature Oral (F) 2020-12-20 21:14:00 98 F [facility] Heart Rate 2020-12-20 21:14:00 [facility] Respitory Rate 2020-12-20 21:14:00 [facility] Systolic (mm Hg) 2020-12-20 21:14:00 [facility] Diastolic (mm Hg) 2020-12-20 21:14:00 Mem [facility] Temperature Oral (F) 2020-12-20 17:00:00 98.8 F [facility] Heart Rate 2020-12-20 17:00:00 [facility] Respitory Rate 2020-12-20 17:00:00 Mem[facility] Systolic (mm Hg) 2020-12-20 17:00:00 Shar [facility] Diastolic (mm Hg) 2020-12-20 17:00:00 [facility] Temperature Oral (F) 2020-12-18 04:35:00 99.8 F [facility] Respitory Rate 2020-12-18 04:35:00 [facility] Systolic (mm Hg) 2020-12-18 04:35:00 Shar [facility] Diastolic (mm Hg) 2020-12-18 04:35:00 [facility] Temperature Oral (F) 2020-12-18 03:36:00 98.9 F [facility] Respitory Rate 2020-12-18 03:36:00 [facility] Systolic (mm Hg) 2020-12-18 03:36:00 [facility] Diastolic (mm Hg) 2020-12-18 03:36:00 [facility] Temperature Oral (F) 2020-12-18 01:34:00 98.8 F [facility] Respitory Rate 2020-12-18 01:34:00 [facility] Systolic (mm Hg) 2020-12-18 01:34:00 Shar [facility] Diastolic (mm Hg) 2020-12-18 01:34:00 [facility] Heart Rate 2020-12-16 14:17:00 [facility] Height 2020-12-16 12:35:00 177.8 cm [facility] Weight 2020-12-16 12:35:00 [facility] BMI Calculated 2020-12-16 12:35:00 [facility] Heart Rate 2020-12-15 18:21:00 [facility] Weight 2018-10-05 15:09:00 [facility] BMI Calculated 2018-10-05 15:09:00 [facility] Height 2018-10-05 15:09:00 172.72 cm [facility] Respitory Rate 2018-10-05 15:09:00 [facility] Heart Rate 2018-10-05 15:09:00 [facility] Height 2018-09-01 19:26:00 172.72 cm [facility] BMI Calculated 2018-09-01 19:26:00 [facility] Weight 2018-09-01 19:26:00 [facility] Systolic (mm Hg) 2018-09-01 19:26:00 [facility] Diastolic (mm Hg) 2018-09-01 19:26:00 [facility] Temperature Oral (F) 2018-09-01 19:26:00 98.8 F [facility] Heart Rate 2018-09-01 19:26:00 [facility] Weight 2017-05-26 15:53:00 [facility] Height 2017-05-26 15:53:00 175.26 cm [facility] BMI Calculated 2017-05-26 15:53:00 [facility] Systolic (mm Hg) 2017-05-26 15:53:00 [facility] Diastolic (mm Hg) 2017-05-26 15:53:00 [facility] Respitory Rate 2017-05-26 15:53:00 [facility] Heart Rate 2017-05-26 15:53:00 [facility] BMI Calculated 2017-05-20 17:24:00 [facility] Weight 2017-05-20 17:24:00 [facility] Height 2017-05-20 17:24:00 175.26 cm [facility] Heart Rate 2017-05-20 17:24:00 [facility] Respitory Rate 2017-05-20 17:24:00 [facility] Temperature Oral (F) 2017-05-20 17:24:00 98.3 F [facility] Systolic (mm Hg) 2017-05-20 17:24:00 [facility] Diastolic (mm Hg) 2017-05-20 17:24:00 [facility] BMI Calculated 2016-05-29 15:35:00 [facility] Height 2016-05-29 15:35:00 172.72 cm [facility] Weight 2016-05-29 15:35:00 [facility] Systolic (mm Hg) 2016-05-29 15:35:00 Shar [facility] Diastolic (mm Hg) 2016-05-29 15:35:00 [facility] Respitory Rate 2016-05-29 15:35:00 [facility] Heart Rate 2016-05-29 15:35:00 [facility] BMI Calculated 2016-05-24 16:27:00 [facility] Weight 2016-05-24 16:27:00 [facility] Height 2016-05-24 16:27:00 172.72 cm [facility] Systolic (mm Hg) 2016-05-24 16:27:00 [facility] Diastolic (mm Hg) 2016-05-24 16:27:00 [facility] Heart Rate 2016-05-24 16:27:00 [facility] Temperature Oral (F) 2016-05-24 16:27:00 98 F [facility] Heart Rate 2015-09-19 17:42:00 [facility] Systolic (mm Hg) 2015-09-19 17:42:00 [facility] Diastolic (mm Hg) 2015-09-19 17:42:00 [facility] Height 2015-06-16 15:36:00 172.72 cm [facility] Systolic (mm Hg) 2015-06-16 15:36:00 [facility] Diastolic (mm Hg) 2015-06-16 15:36:00 [facility] Heart Rate 2015-06-16 15:36:00 [facility] Weight 2015-06-16 15:36:00 [facility] BMI Calculated 2015-06-16 15:36:00 [facility] Weight 2015-04-24 14:53:00 [facility] Height 2015-04-24 14:53:00 175.26 cm [facility] BMI Calculated 2015-04-24 14:53:00 [facility] Heart Rate 2015-04-24 14:53:00 [facility] Respitory Rate 2015-04-24 14:53:00 [facility] Systolic (mm Hg) 2015-04-24 14:53:00 [facility] Diastolic (mm Hg) 2015-04-24 14:53:00 Mem orial [facility] Height 2015-04-19 18:40:00 172.72 cm [facility] Systolic (mm Hg) 2015-04-19 18:40:00 [facility] Diastolic (mm Hg) 2015-04-19 18:40:00 [facility] BMI Calculated 2015-04-19 18:40:00 [facility] Weight 2015-04-19 18:40:00 [facility] Temperature Oral (F) 2015-04-19 18:40:00 98.2 F [facility] Heart Rate 2015-04-19 18:40:00 [facility] Heart Rate 2014-05-02 15:00:00 [facility] Respitory Rate 2014-05-02 15:00:00 [facility] Diastolic (mm Hg) 2014-05-02 15:00:00 [facility] Systolic (mm Hg) 2014-05-02 15:00:00 [facility] Height 2014-05-02 15:00:00 172.72 cm [facility] Weight 2014-05-02 15:00:00 [facility] BMI Calculated 2014-05-02 15:00:00 [facility] Systolic (mm Hg) 2014-04-25 23:39:00 [facility] Diastolic (mm Hg) 2014-04-25 23:39:00 [facility] Temperature Oral (F) 2014-04-25 23:39:00 98.5 F [facility] Heart Rate 2014-04-25 23:39:00 [facility] Respitory Rate 2014-04-25 23:39:00 [facility] Height 2014-04-25 23:39:00 170.18 cm [facility] BMI Calculated 2014-04-25 23:39:00 [facility] Weight 2014-04-25 23:39:00 [facility] Systolic (mm Hg) 2013-04-05 16:03:00 [facility] Diastolic (mm Hg) 2013-04-05 16:03:00 [facility] Heart Rate 2013-04-05 16:03:00 [facility] Respitory Rate 2013-04-05 16:03:00 [facility] Temperature Oral (F) 2013-04-05 16:03:00 98.8 F [facility] Weight 2013-04-05 16:03:00 [facility] Height 2013-04-05 16:03:00 172.72 cm [facility] Weight 2013-02-22 14:32:00 [facility] Height 2013-02-22 14:32:00 172.72 cm [facility] Respitory Rate 2013-02-22 14:32:00 [facility] Heart Rate 2013-02-22 14:32:00 [facility] Temperature Oral (F) 2013-02-22 14:32:00 99.1 F [facility] Systolic (mm Hg) 2013-02-22 14:32:00 [facility] Diastolic (mm Hg) 2013-02-22 14:32:00 [facility] Systolic (mm Hg) 2011-09-02 16:39:00 [facility] Respitory Rate 2011-09-02 16:39:00 [facility] Heart Rate 2011-09-02 16:39:00 [facility] Diastolic (mm Hg) 2011-09-02 16:39:00 [facility] Procedures Procedure Date / Time Performed Performing Clinician [facility] CMG - Cystometrogram 2018-09-01 06:00:00 Álvarotimmy Brenner CMG - Cystometrogram 2013-04-05 05:00:00 HolgerRoderick mann Kyree diaz [facility] En[facility]ters Start End Encounter Admission Attending Care Care Encounter Source Date/Time Date/Time Type Type Clinicians Facility Department ID 2022-10-22 Outpatient CORNELL Marcos STLMLC [id number] Common 08:53:00 Nata [id number] [facility] 2022-10-10 Outpatient [facility] [id number] [place] 01:01:56 [id number] [facility] 2022-09-20 Outpatient Priti STNAE STLMLC [id number] Common 10:12:00 Nata [address]73 [facility] 2022-09-15 Outpatient [facility] [id number] [place] 12:42:23 [id number] [facility] 2022-07-10 Outpatient [facility] [id number] [place] 08:36:40 [id number] [facility] 2022-07-02 Outpatient Priti STNAE STLMLC [id number] Common 13:31:00 Nata [facility] 2022-05-07 Outpatient MHIE MHIE [id number] Memoria 09:59:58 04 joe Jordin 2022-01-18 Outpatient CORNELL Marcos STLMLC [id number] Common 08:47:00 Nata [facility] 2021-10-19 Outpatient Priti STNAE STLMLC [id number] Common 09:35:00 Nata [facility] 2021-09-21 Outpatient [facility] [id number] [place] 11:22:30 [facility] 2021-09-05 Outpatient [facility] [id number] [place] 13:09:09 [facility] 2021-08-08 Outpatient Priti STNAE STLMLC [id number] Common 14:34:19 Nata [facility] 2021-08-08 Outpatient Priti STNAE STLMLC [id number] Common 13:51:23 Nata [facility] 2021-08-08 Outpatient Priti STLMLC STLC Common 12:45:23 Nata 21202 [facility] 2021-08-08 Outpatient CORNELL Marcos STLC Common 11:59:24 Nata 43941 [facility] 2021-07-05 Outpatient [facility] [id number] [place] 15:15:35 Health 2021-07-02 Outpatient NICHOLS, [facility] [id number] [place] 10:42:43 [facility] 2021-05-09 Outpatient [facility] [id number] [place] 15:32:46 [facility] 2021-05-01 Outpatient [facility] [id number] [place] 14:40:49 Health 2021-03-29 Outpatient NICHOLS, [facility] [id number] [place] 09:21:18 [facility] 2021-02-13 Outpatient [facility] [id number] [place] 14:49:13 Health 2021-02-12 Outpatient NICHOLS, [facility] [id number] [place] 11:09:15 [facility] 2021-02-12 Outpatient NICHOLS, [facility] [id number] [place] 10:04:04 [facility] 2021-02-06 Outpatient [facility] [id number] [place] 15:09:29 Health 2021-01-16 Outpatient ACHOR, [facility] [id number] [place] [facility] NICHOLS, [facility] [id number] [place] 15:08:44 [facility] 2020-12-26 Outpatient INCHOLS, [facility] [id number] [place] 14:46:05 [facility] 2022-07-11 2022-07-11 External [place], EXT [facility] [id number] [place] 14:15:00 14:55:00 Contact Asael QUAN [id number] H [facility] [id number] 2022-07-04 2022-07-04 OFFICE STLMLC STLMLC [id number] Co mmon 00:00:00 00:00:00 VISIT [facility] - LEVEL 2 [facility] 2022-07-03 2022-07-03 OFFICE STLMLC STLMLC [id number] Co mmon 00:00:00 00:00:00 VISIT [facility] ESTAB PT - [facility] LEVEL 4 [facility] 2022-06-10 2022-06-10 (TEL) STLMLC STLMLC [id number] Co mmon 00:00:00 00:00:00 [facility] 2022-06-05 2022-06-05 (TEL) STLMLC STLMLC [id number] Co mmon 00:00:00 00:00:00 [facility] 2022-06-04 2022-06-04 ([place]) Nurse STLMLC STLMLC [id number] Common 00:00:00 00:00:00 Visit [facility] 2022-05-10 2022-05-10 OFFICE STLMLC STLMLC [id number] Co mmon 00:00:00 00:00:00 VISIT [facility] PT - CHI LEVEL 4 [facility] 2022-04-17 2022-04-17 (TEL) STLMLC STLMLC [id number] Co mmon 00:00:00 00:00:00 [facility] 2022-04-08 2022-04-08 SUB ANNUAL STLMLC STLMLC [id number] Common 00:00:00 00:00:00 MCR [facility] WELLNESS - CHI VISIT [facility] 2022-03-12 2022-03-12 (TEL) STLMLC STLMLC [id number] Co mmon 00:00:00 00:00:00 [facility] 2022-03-07 2022-03-07 (PROC) STLMLC STLMLC [id number] Co mmon 00:00:00 00:00:00 Procedure [facility]ir [facility] 2022-02-25 2022-02-25 (TEL) STLMLC STLMLC [id number] Co mmon 00:00:00 00:00:00 [facility] 2022-01-22 2022-01-22 OFFICE STLMLC STLMLC [id number] Co mmon 00:00:00 00:00:00 VISIT [facility] PT - CHI LEVEL 4 [facility] 2022-01-07 2022-01-07 Office NARCISO Nihcols 6414 1.2.840.114 [id number] [place] 09:30:00 11:04:[address] [id number] Health 9.2.7.2.686 [id number] 1 2021-12-27 2021-12-27 (TEL) STLMLC STLMLC [id number] Co mmon 00:00:00 00:00:00 [facility] 2021-12-13 2021-12-13 OFFICE STLMLC STLMLC [id number] Co mmon 00:00:00 00:00:00 VISIT [facility] PT - CHI LEVEL 2 [facility] 2021-10-23 2021-10-23 OFFICE STLMLC STLMLC [id number] Co mmon 00:00:00 00:00:00 VISIT [facility] PT - CHI LEVEL 4 [facility] 2021-10-23 2021-10-23 (TEL) STLMLC STLMLC [id number] Co mmon 00:00:00 00:00:00 [facility] 2021-10-08 2021-10-08 OFFICE STLMLC STLMLC [id number] Co mmon 00:00:00 00:00:00 VISIT [facility] ESTAB PT - CHI LEVEL 4 [facility] 2021-10-02 2021-10-02 (TEL) STLMLC STLMLC [id number] Co mmon 00:00:00 00:00:00 [facility] 2021-09-10 2021-09-10 Office NARCISO Joy 6414 1.2.840.114 [id number] [place] 09:45:00 10:39:34 Visit Bon DYKES [id number] Health 9.2.7.2.686 [id number] 1 2021-08-30 2021-08-30 (TEL) STLMLC STLMLC [id number] Co mmon 00:00:00 00:00:00 [facility] 2021-08-27 2021-08-27 (TEL) STLMLC STLMLC [id number] Co mmon 00:00:00 00:00:00 [facility] 2021-08-24 2021-08-24 (TEL) STLMLC STLMLC [id number] Co mmon 00:00:00 00:00:00 [facility] CHI [facility] 2021-08-14 2021-08-14 (TEL) STLMLC STLMLC [id number] Co mmon 00:00:00 00:00:00 [facility] CHI [facility] 2021-07-31 2021-07-31 (TEL) STLMLC STLMLC [id number] Co mmon 00:00:00 00:00:00 [facility] 2021-07-26 2021-07-26 OFFICE STLMLC STLMLC [id number] Co mmon 00:00:00 00:00:00 VISIT [facility] PT - CHI LEVEL 4 [facility] 2021-07-02 2021-07-02 Office Simone, NARCISO 6414 1.2.840.114 [id number] [place] 10:45:00 10:45:[address] [id number] Health 9.2.7.2.686 [id number] 1 2021-07-02 2021-07-02 Refill Jeanette Burden UTP 6414 1.2.840.1 14 [id number] [place] 00:00:00 00:00:[address] [id number] Health 9.2.7.2.686 [id number] 1 2021-05-18 2021-05-18 OFFICE STLMLC STLMLC [id number] Co mmon 00:00:00 00:00:00 VISIT EST Spir it PT LEVEL 3 - CHI [facility] 2021-05-07 2021-05-07 Office Nichols, NARCISO 1.2.840.114 [id number] [place] 10:14:16 11:41:40 Visit Emma TRAUMA [id number] [facility] 9.2.7.2.686 [id number] 1 2021-05-01 2021-05-01 (TEL) STLMLC STLMLC [id number] Co mmon 00:00:00 00:00:00 [facility] 2021-04-302021-04-30 OFFICE STLMLC STLMLC [id number] Co mmon 00:00:00 00:00:00 VISIT [facility] ESTAB PT - CHI LEVEL 4 [facility] 2021-04-19 2021-04-19 RefNARCISO Pyle 1.2.840.114 [id number] [place] 00:00:00 00:00:00 Reeju TRAUMA [id number] He [facility] CLINIC 9.2.7.2.686 [id number] 1 2021-04-06 2021-04-06 Outpatient STLMLC STLMLC [id number] Common 00:00:00 00:00:00 [facility] 2021-04-04 2021-04-04 SUB ANNUAL STLMLC STLMLC [id number] Common 00:00:00 00:00:00 MCR [facility] WELLNESS - CHI VISIT [facility] 2021-04-03 2021-04-03 Outpatient STLMLC STLMLC [id number] Common 00:00:00 00:00:00 [facility] 2021-04-02 2021-04-02 (TEL) STLMLC STLMLC [id number] Co mmon 00:00:00 00:00:00 [facility] 2021-03-26 2021-03-26 Office NARCISO Joy 1.2.840.114 [id number] [place] 10:02:23 10:58:11 Visit Reeju TRAUMA [id number] [facility] CLINIC 9.2.7.2.686 [id number] 1 2021-03-21 2021-03-21 Outpatient STLMLC STLMLC [id number] Common 00:00:00 00:00:00 [facility] 2021-03-09 2021-03-09 Outpatient STLMLC STLMLC [id number] Common 00:00:00 00:00:00 [facility] 2021-03-07 2021-03-07 Outpatient STLMLC STLMLC [id number] Common 00:00:00 00:00:00 [facility] 2021-03-01 2021-03-01 RefNARCISO Dooley 1.2.840.114 [id number] [place] 00:00:00 00:00:00 Emma TRAUMA [id number] He alth CLINIC 9.2.7.2.686 [id number] 1 2021-01-31 2021-01-31 Outpatient STLMLC STLC [id number] Common 00:00:00 00:00:00 [facility] 2021-01-29 2021-01-29 Refill Jeanette Burden UTP 1.2.840.11 4 [id number] [place] 00:00:00 00:00:00 Jeanette Burden TRAUMA [id number] [facility] CLINIC 9.2.7.2.686 [id number] 1 2021-01-26 2021-01-26 Outpatient STLC STLC [id number] Common 00:00:00 00:00:00 [facility] 2021-01-15 2021-01-15 Refill NARCISO Nichols 1.2.840.114 [id number] [place] 00:00:00 00:00:00 Emma TRAUMA [id number] alth CLINIC 9.2.7.2.686 [id number] 1 2021-01-12 2021-01-12 [facility] [id number] Common 00:00:00 00:00:00 [facility] 2021-01-04 2021-01-04 Outpatient STLC STLC [id number] Common 00:00:00 00:00:00 [facility] 2021-01-04 2021-01-04 Patient Audelia Ba NARCISO ACEVEDO 1.2.840 .114 [id number] [place] 00:00:00 00:00:00 Outreach Audelia Ba TOWER [id number] [facility] 9.2.7.2.686 [id number] 2 2021-01-01 2021-01-01 Office NARCISO Nichols 1.2.840.114 [id number] [place] 13:58:07 15:09:21 Visit Emma TRAUMA [id number] He alth CLINIC 9.2.7.2.686 [id number] 1 2021-01-012021-01-01 Refill Jeanette Burden UTP 1.2.840.11 4 [id number] [place] 00:00:00 00:00:00 Jeanette Burden TRAUMA 350.1.13.58 Health CLINIC 9.2.7.2.686 [id number] 1 2020-12-28 2020-12-28 Patient Audelia Ba 1.2.840 .114 [id number] [place] 00:00:00 00:00:00 Outreach Audelia Ba [id number] Health 9.2.7.2.686 [id number] 2 2020-12-26 2020-12-26 Patient Audelia Ba 1.2.840 .114 [id number] [place] 00:00:00 00:00:00 Outreach Audelia Ba 350.1.13.58 Health 9.2.7.2.686 [id number] 2 2020-12-22 2020-12-22 [facility] [id number] Common 00:00:00 00:00:00 [facility] 2020-12-15 2020 Inpatient [facility] [id number] [facility] 17:48:41 00:00:[address] 2020-12-15 2020-12-20 Inpatient E MOUSER, [facility] [id number] [facility] 18:48:00 19:00:00 KASSANDRA 2020-12-16 2020-12-16 EXT MHH OP EXT MSRDP 1.2.840.114 1 [id number] [place] 00:00:00 00:00:00 LOCATION [id number] H ealth 9.2.7.2.686 [id number] 0 2020-12-16 2020-12-16 EXT MHH OP EXT MSRDP 1.2.840.114 1 [id number] [place] 00:00:00 00:00:00 LOCATION [id number] H ealth 9.2.7.2.686 [id number] 0 2020-12-05 2020-12-05 Outpatient STLMLC STLC [id number] Common 00:00:00 00:00:00 [facility] 2020-05-11 2020-05-11 Outpatient STLMLC STLMLC [id number] Common 00:00:00 00:00:00 [facility] 2020-04-19 2020-04-19 Outpatient STLMLC STLMLC [id number] Common 00:00:00 00:00:00 [facility] 2020-04-17 2020-04-17 Outpatient STLMLC STLMLC [id number] Common 00:00:00 00:00:00 [facility] 2019-12-20 2019-12-20 [facility] [id number] Common 09:10:00 09:10:00 [facility] it [facility] 2019-11-02 2019-11-02 [facility] [id number] Common 08:53:00 08:53:00 [facility] it Road [facility] 2019-10-21 2019-10-21 [facility] [id number] Common 10:11:00 10:11:00 [facility] it [facility] 2019-10-14 2019-10-14 [facility] [id number] Common 15:44:00 15:44:00 t Specialty/U Sp laz Specialty rology - CHI /Urology Clinic [facility] 2019-10-05 2019-10-05 [facility] [id number] Common 13:30:00 13:30:00 t Specialty/U Sp laz Specialty rology - CHI /Urology Clinic [facility] 2019-09-16 2019-09-16 [facility] [id number] Common 14:00:00 14:00:00 t Specialty/U Sp laz Specialty rology - CHI /Urology Clinic [facility] 2019-09-08 2019-09-08 [facility] [id number] Common 09:40:00 09:40:00 [facility] it [facility] 2019-08-27 2019-08-27 Out[facility] [id number] Common 14:26:00 14:26:00 t [facility] [address] Sp[address] Road [facility] 2019-03-03 2019-03-03 Out[facility] [id number] Common 13:00:00 13:00:00 t [facility] [address] [facility] 2019-01-28 2019-01-28 Out[facility] [id number] Common 11:20:00 11:20:00 t [facility] [address] [facility] 2018-10-05 2018-10-06 Outpatient nullFlavo TR Urology [id number] Memoria 14:45:00 04:59:00 r Tiffany 23 l (UROR) Jordin 2018-09-04 2018-09-04 [facility] [id number] Common 11:30:00 11:30:00 t [facility] [address] [facility] 2018-09-01 2018-09-02 Outpatient nullFlavo TIRR [id number] Memoria 17:47:00 05:59:00 r [facility] 24 l Jordin Brenner 2018-08-28 2018-08-28 [facility] [id number] Common 09:34:00 09:34:00 t [facility] [address] [facility] 2018-05-19 2018-05-19 Outpatient nullFlavo TIRR [id number] Memoria 16:00:00 16:00:00 r [facility] 22 l Jordin Brenner 2018-03-19 2018-03-19 [facility] [id number] Common 16:52:00 16:52:00 t [facility] [address] [facility] 2018-03-05 2018-03-05 Outpatient [facility] [id number] Common 11:00:00 11:00:00 t [facility] [address] [facility] 2017-06-17 2017-06-18 Outpatient nullFlavo TIRR [id number] Memoria 15:52:00 05:59:00 r [facility] 21 l Jordin Brenner 2017-05-26 2017-05-27 Outpatient nullFlavo TIRR [id number] Memoria 15:33:00 05:59:00 r [facility] 19 [facility] 2017-05-20 2017-05-21 Outpatient nullFlavo TIRR [id number] Memoria 14:55:00 05:59:00 r [facility] 20 [facility] 2016-05-29 2016-05-30 Outpatient nullFlavo TIRR [id number] Memoria 15:21:00 05:59:00 r [facility] 17 [facility] 2016-05-24 2016-05-25 Outpatient nullFlavo TIRR [id number] Memoria 15:09:00 05:59:00 r [facility] 18 [facility] 2015-09-19 2015-10-19 OP nullFlavo TIRR [id number] Memoria 14:00:00 04:59:00 Recurring r [facility] 01 [facility] 2015-06-16 2015-07-16 OP nullFlavo TIRR [id number] Memoria 14:00:00 05:59:00 Recurring r [facility] 00 [facility] 2015-04-24 2015-04-25 Outpatient nullFlavo TIRR [id number] Memoria 14:05:00 04:59:00 r [facility] 14 [facility] 2015-04-19 2015-04-20 Outpatient nullFlavo TIRR [id number] Memoria 15:40:00 04:59:00 r [facility] 12 joe [facility] 2014-05-02 2014-05-03 Outpatient nullFlavo [facility] [id number] Memoria 14:36:00 04:59:00 r [facility] 11 [facility] 2014-04-25 2014-04-26 Outpatient nullFlavo [facility] [id number] Memoria 16:50:00 04:59:00 r Jordin 10 joe Brenner 2013-04-05 2013-04-05 Outpatient MHIE MHIE [id number] [facility]oria 10:00:00 10:00:00 09 joe Brenner 2013-02-22 2013-02-22 Outpatient MHIE MHIE [id number] Memoria 09:00:00 09:00:00 08 joe Brenner 2011-09-02 2011-09-02 Outpatient MHIE MHIE [id number] Memoria 09:54:00 09:54:00 03 l [facility] Results Test Description Test Time Test Comments Results Result Comments Source CULTURE, URINE/SENSITIVITY ON ALL 2021-07-30 00:00:00 Test Item Value Reference Range Interpretation Comme nts CULTURE, URINE/SENSITIVITY ON ALL (test code = SPECIMEN NUMBER: [id number] [id number]) CHEM [id number] 05:05:00 Test Item Value Reference Range Interpretation Comments Glucose Lvl (test code = Glucose Lvl) 140 70-99 [facility] [id number] 05:05:00 Test Item Value Reference Range Interpretation Comments BUN (test code = BUN) 6 7-22 [facility] [id number] 05:05:00 Test Item Value Reference Range Interpretation Comments Creatinine Lvl (test code = Creatinine 0.45 0.50-1.40 Lvl) [id number] 05:05:00 Test Item Value Reference Range Interpretation Comments Sodium Lvl (test code = Sodium Lvl) 137 135-145 [facility] [id number] 05:05:00 Test Item Value Reference Range Interpretation Comments Potassium Lvl (test code = Potassium 3.1 3.5-5.1 Lvl) [facility] [id number] 05:05:00 Test Item Value Reference Range Interpretation Comments Chloride Lvl (test code = Chloride Lvl) 105 95-109 [facility] [id number] 05:05:00 Test Item Value Reference Range Interpretation Comments CO2 (test code = CO2) 26 24-32 [facility] [id number] 05:05:00 Test Item Value Reference Range Interpretation Comments AGAP (test code = AGAP) 9.1 10.0-20.0 [facility] [id number] 05:05:00 Test Item Value Reference Range Interpretation Comments Calcium Lvl (test code = Calcium Lvl) 8.6 8.5-10.5 [facility] [id number] 05:05:00 Test Item Value Reference Range Interpretation Comments eGFR (test code = eGFR) 122 [facility] [id number] 05:05:00 Test Item Value Reference Range Interpretation Comments Phosphorus (test code = Phosphorus) 3.0 2.5-4.5 [facility] ClubLfnjrwdAXDIGGEJRI6779-05-81 05:05:00 Test Item Value Reference Range Interpretation Comments WBC (test code = WBC) 8.9 3.7-10.4 [facility] ClubVcmnqkvNKVRZPIKNO1814-11-71 05:05:00 Test Item Value Reference Range Interpretation Comments RBC (test code = RBC) 2.47 4.70-6.10 [facility] ClubIgqvuqaNVYNJEBYCD7320-98-71 05:05:00 Test Item Value Reference Range Interpretation Comments Hgb (test code = Hgb) 8.3 14.0-18.0 [facility] ClubLrpnawiPOJYRSPDLQ2335-25-51 05:05:00 Test Item Value Reference Range Interpretation Comments Hct (test code = Hct) 23.8 42.0-54.0 [facility] ClubRpbrpgsTLZDMVUCKI8829-01-87 05:05:00 Test Item Value Reference Range Interpretation Comments MCV (test code = MCV) 96.1 80.0-94.0 [facility] ClubNkdgawmNVVURLSUJR2134-64-18 05:05:00 Test Item Value Reference Range Interpretation Comments MCH (test code = MCH) 33.5 pg 27.0-31.0 [facility] ClubJrntlqoHUIEWIDCLI8992-89-03 05:05:00 Test Item Value Reference Range Interpretation Comments MCHC (test code = MCHC) 34.8 32.0-36.0 [facility] ClubUbhoqjxDKWJVNKSJB7856-16-39 05:05:00 Test Item Value Reference Range Interpretation Comments RDW (test code = RDW) 13.9 11.5-14.5 [facility] ClubDtwojqgRMTJMVXYON6075-24-86 05:05:00 Test Item Value Reference Range Interpretation Comments Platelet (test code = Platelet) 364 133-450 [facility] ClubRaaxpgbAIBBWRQTIB0342-90-22 05:05:00 Test Item Value Reference Range Interpretation Comments MPV (test code = MPV) 7.6 7.4-10.4 [facility] ClubAttgxbqBWIQBPBTUA9373-07-87 05:05:00 Test Item Value Reference Range Interpretation Comments Segs (test code = Segs) 63.4 45.0-75.0 [facility] ClubFouwcobDHGUHNHZOZ9797-83-17 05:05:00 Test Item Value Reference Range Interpretation Comments Lymphocytes (test code = Lymphocytes) 24.1 20.0-40.0 [facility] ClubKgfcckyWCJLJYIGDI2694-99-81 05:05:00 Test Item Value Reference Range Interpretation Comments Monocytes (test code = Monocytes) 8.8 2.0-12.0 [place] 671241-06-09 05:05:00 Test Item Value Reference Range Interpretation Comments Eosinophils (test code = 3.3 See_Comment [A utomated message] The Eosinophils) system which ge nerated this result tra nsmitted reference range : <=4.0. The reference r halle was not used to int erpret this result as normal/abnormal . [place] 671241-06-09 05:05:00 Test Item Value Reference Range Interpretation Comments Basophils (test code = 0.4 See_Comment [Aut omated message] The Basophils) system which ge nerated this result tra nsmitted reference range : <=1.0. The reference r halle was not used to int erpret this result as normal/abnormal . [place] 671241-06-09 05:05:00 Test Item Value Reference Range Interpretation Comments Neutrophils # (test code = Neutrophils 5.6 1.5-8.1 #) [place] 671241-06-09 05:05:00 Test Item Value Reference Range Interpretation Comments Lymphocytes # (test code = Lymphocytes 2.1 1.0-5.5 #) [place] 671241-06-09 05:05:00 Test Item Value Reference Range Interpretation Comments Monocytes # (test code 0.8 See_Comment [Aut omated message] The = Monocytes #) system which generated this result tra nsmitted reference range : <=0.8. The reference r halle was not used to int erpret this result as normal/abnormal . [place] 671241-06-09 05:05:00 Test Item Value Reference Range Interpretation Comments Eosinophils # (test code 0.3 See_Comment [A utomated message] The = Eosinophils #) system whic h generated this result tra nsmitted reference range : <=0.5. The reference r halle was not used to int erpret this result as normal/abnormal . [facility]2021-06-08 08:10:00 Test Item Value Reference Range Interpretation Comments Glucose Lvl (test code = Glucose Lvl) 83 70-99 [place] 316991-06-08 08:10:00 Test Item Value Reference Range Interpretation Comments Creatinine Lvl (test code = Creatinine 0.39 0.50-1.40 Lvl) [place] 316991-06-08 08:10:00 Test Item Value Reference Range Interpretation Comments Sodium Lvl (test code = Sodium Lvl) 138 135-145 [place] 316991-06-08 08:10:00 Test Item Value Reference Range Interpretation Comments Potassium Lvl (test code = Potassium 3.7 3.5-5.1 Lvl) [place] 316991-06-08 08:10:00 Test Item Value Reference Range Interpretation Comments Chloride Lvl (test code = Chloride Lvl) 105 95-109 [place] 316991-06-08 08:10:00 Test Item Value Reference Range Interpretation Comments CO2 (test code = CO2) 23 24-32 [place] 316991-06-08 08:10:00 Test Item Value Reference Range Interpretation Comments Calcium Lvl (test code = Calcium Lvl) 9.3 8.5-10.5 [place] 316991-06-08 08:10:00 Test Item Value Reference Range Interpretation Comments AGAP (test code = AGAP) 13.7 10.0-20.0 [place] 316991-06-08 08:10:00 Test Item Value Reference Range Interpretation Comments eGFR (test code = eGFR) 130 [place] 316991-06-08 08:10:00 Test Item Value Reference Range Interpretation Comments BUN (test code = BUN) 7 7-22 [place] 316991-06-08 08:10:00 Test Item Value Reference Range Interpretation Comments Phosphorus (test code = Phosphorus) 2.9 2.5-4.5 [place] 671241-06-08 08:10:00 Test Item Value Reference Range Interpretation Comments Segs (test code = Segs) 61.0 45.0-75.0 [place] 671241-06-08 08:10:00 Test Item Value Reference Range Interpretation Comments Lymphocytes (test code = Lymphocytes) 26.4 20.0-40.0 [place] 60379-06-08 08:10:00 Test Item Value Reference Range Interpretation Comments Monocytes (test code = Monocytes) 9.7 2.0-12.0 [place] 671241-06-08 08:10:00 Test Item Value Reference Range Interpretation Comments Eosinophils (test code = 2.4 See_Comment [A utomated message] The Eosinophils) system which ge nerated this result tra nsmitted reference range : <=4.0. The reference r halle was not used to int erpret this result as normal/abnormal . [place] 671241-06-08 08:10:00 Test Item Value Reference Range Interpretation Comments Basophils (test code = 0.5 See_Comment [Aut omated message] The Basophils) system which ge nerated this result tra nsmitted reference range : <=1.0. The reference r halle was not used to int erpret this result as normal/abnormal . [facility] [id number] 08:10:00 Test Item Value Reference Range Interpretation Comments Neutrophils # (test code = Neutrophils 5.0 1.5-8.1 #) [facility] ClubNppifhaGTFQLKUFBT1506-43-45 08:10:00 Test Item Value Reference Range Interpretation Comments Lymphocytes # (test code = Lymphocytes 2.2 1.0-5.5 #) [facility] [id number] 08:10:00 Test Item Value Reference Range Interpretation Comments Monocytes # (test code 0.8 See_Comment [Aut omated message] The = Monocytes #) system which generated this result tra nsmitted reference range : <=0.8. The reference r halle was not used to int erpret this result as normal/abnormal . [facility] [id number] 08:10:00 Test Item Value Reference Range Interpretation Comments Eosinophils # (test code 0.2 See_Comment [A utomated message] The = Eosinophils #) system whic h generated this result tra nsmitted reference range : <=0.5. The reference r halle was not used to int erpret this result as normal/abnormal . [facility] ClubJpybbobSXAVBWYJUP2135-36-00 08:10:00 Test Item Value Reference Range Interpretation Comments WBC (test code = WBC) 8.2 3.7-10.4 [facility] ClubOkjeamtINQEHQWOCI8255-11-29 08:10:00 Test Item Value Reference Range Interpretation Comments RBC (test code = RBC) 2.45 4.70-6.10 [place] 671241-06-08 08:10:00 Test Item Value Reference Range Interpretation Comments Hgb (test code = Hgb) 8.2 14.0-18.0 [place] 671241-06-08 08:10:00 Test Item Value Reference Range Interpretation Comments Hct (test code = Hct) 23.5 42.0-54.0 [place] 671241-06-08 08:10:00 Test Item Value Reference Range Interpretation Comments MCV (test code = MCV) 95.7 80.0-94.0 [place] 671241-06-08 08:10:00 Test Item Value Reference Range Interpretation Comments MCH (test code = MCH) 33.4 pg 27.0-31.0 [place] 671241-06-08 08:10:00 Test Item Value Reference Range Interpretation Comments MCHC (test code = MCHC) 34.9 32.0-36.0 [place] 671241-06-08 08:10:00 Test Item Value Reference Range Interpretation Comments RDW (test code = RDW) 13.6 11.5-14.5 [place] 671241-06-08 08:10:00 Test Item Value Reference Range Interpretation Comments Platelet (test code = Platelet) 312 133-450 [place] 671241-06-08 08:10:00 Test Item Value Reference Range Interpretation Comments MPV (test code = MPV) 7.9 7.4-10.4 [facility]2021-06-07 10:32:00 Test Item Value Reference Range Interpretation Comments Phosphorus (test code = Phosphorus) 2.2 2.5-4.5 [facility]2021-06-07 10:32:00 Test Item Value Reference Range Interpretation Comments Magnesium Lvl (test code = Magnesium 2.1 1.8-2.4 Lvl) [place] 316991-06-07 10:32:00 Test Item Value Reference Range Interpretation Comments Glucose Lvl (test code = Glucose Lvl) 111 70-99 [facility]2021-06-07 10:32:00 Test Item Value Reference Range Interpretation Comments BUN (test code = BUN) 10 7-22 [place] 316991-06-07 10:32:00 Test Item Value Reference Range Interpretation Comments Creatinine Lvl (test code = Creatinine 0.49 0.50-1.40 Lvl) [place] 316991-06-07 10:32:00 Test Item Value Reference Range Interpretation Comments Sodium Lvl (test code = Sodium Lvl) 139 135-145 [place] 316991-06-07 10:32:00 Test Item Value Reference Range Interpretation Comments Potassium Lvl (test code = Potassium 3.4 3.5-5.1 Lvl) [place] 316991-06-07 10:32:00 Test Item Value Reference Range Interpretation Comments Chloride Lvl (test code = Chloride Lvl) 106 95-109 [place] 316991-06-07 10:32:00 Test Item Value Reference Range Interpretation Comments CO2 (test code = CO2) 26 24-32 [place] 316991-06-07 10:32:00 Test Item Value Reference Range Interpretation Comments Calcium Lvl (test code = Calcium Lvl) 8.5 8.5-10.5 [place] 316991-06-07 10:32:00 Test Item Value Reference Range Interpretation Comments AGAP (test code = AGAP) 10.4 10.0-20.0 [place] 316991-06-07 10:32:00 Test Item Value Reference Range Interpretation Comments eGFR (test code = eGFR) 119 [place] 671241-06-07 10:32:00 Test Item Value Reference Range Interpretation Comments Segs (test code = Segs) 51.8 45.0-75.0 [place] 671241-06-07 10:32:00 Test Item Value Reference Range Interpretation Comments Lymphocytes (test code = Lymphocytes) 36.0 20.0-40.0 [place] 671241-06-07 10:32:00 Test Item Value Reference Range Interpretation Comments Monocytes (test code = Monocytes) 11.0 2.0-12.0 [place] [address]-06-07 10:32:00 Test Item Value Reference Range Interpretation Comments Eosinophils (test code = 0.6 See_Comment [A utomated message] The Eosinophils) system which ge nerated this result tra nsmitted reference range : <=4.0. The reference r halle was not used to int erpret this result as normal/abnormal . [place] 671241-06-07 10:32:00 Test Item Value Reference Range Interpretation Comments Basophils (test code = 0.6 See_Comment [Aut omated message] The Basophils) system which ge nerated this result tra nsmitted reference range : <=1.0. The reference r halle was not used to int erpret this result as normal/abnormal . [facility] ClubJtwilbgAOGIBTPSEU5966-83-34 10:32:00 Test Item Value Reference Range Interpretation Comments Neutrophils # (test code = Neutrophils 4.0 1.5-8.1 #) [facility] ClubMcrpkmlDYSSLBAQWB8621-99-21 10:32:00 Test Item Value Reference Range Interpretation Comments Lymphocytes # (test code = Lymphocytes 2.8 1.0-5.5 #) [facility] ClubEwoooxtACETXATAKQ0947-93-70 10:32:00 Test Item Value Reference Range Interpretation Comments Monocytes # (test code 0.9 See_Comment [Aut omated message] The = Monocytes #) system which generated this result tra nsmitted reference range : <=0.8. The reference r halle was not used to int erpret this result as normal/abnormal . [facility] ClubXsogjjbFBWBGTUIYX7868-49-76 10:32:00 Test Item Value Reference Range Interpretation Comments WBC (test code = WBC) 7.8 3.7-10.4 [facility] ClubRxrhvnjTCPESQKDKC7132-69-29 10:32:00 Test Item Value Reference Range Interpretation Comments RBC (test code = RBC) 2.49 4.70-6.10 [facility] ClubZnlwxfyPXYRYXWDDW8988-93-56 10:32:00 Test Item Value Reference Range Interpretation Comments Hgb (test code = Hgb) 8.2 14.0-18.0 [facility] ClubCkaurrrCYJGQKZPAC0258-93-40 10:32:00 Test Item Value Reference Range Interpretation Comments Hct (test code = Hct) 23.7 42.0-54.0 [place] 671241-06-07 10:32:00 Test Item Value Reference Range Interpretation Comments MCV (test code = MCV) 95.3 80.0-94.0 [facility] ClubUtyfwqzRRZLABNDNN3105-39-15 10:32:00 Test Item Value Reference Range Interpretation Comments MCH (test code = MCH) 33.0 pg 27.0-31.0 [facility] ClubNcnpwjhWLUCMCJHOT0533-29-61 10:32:00 Test Item Value Reference Range Interpretation Comments MCHC (test code = MCHC) 34.6 32.0-36.0 [place] 671241-06-07 10:32:00 Test Item Value Reference Range Interpretation Comments RDW (test code = RDW) 13.8 11.5-14.5 [facility] ClubIlhbgdoOTPTGZUWMF9296-03-88 10:32:00 Test Item Value Reference Range Interpretation Comments Platelet (test code = Platelet) 254 133-450 [facility] ClubQlpvwmbSDDGDSXRAB9189-53-23 10:32:00 Test Item Value Reference Range Interpretation Comments MPV (test code = MPV) 7.9 7.4-10.4 [facility] HOKFYGO7584[facility]39 03:19:00 Test Item Value Reference Range Interpretation Comments RBC product (test code Product available = RBC product) (12/17/20 10:19 PM) [facility] ClubLlhmtuaBRXIXDQJHP1771-93-88 23:03:00 Test Item Value Reference Range Interpretation Comments Hgb (test code = Hgb) 7.1 14.0-18.0 [facility] ClubZutdsvpMJRQWJTAIC9757-60-16 23:03:00 Test Item Value Reference Range Interpretation Comments Hct (test code = Hct) 20.8 42.0-54.0 [facility]2021-06-06 08:47:00 Test Item Value Reference Range Interpretation Comments Glucose Lvl (test code = Glucose Lvl) 124 70-99 [facility]2021-06-06 08:47:00 Test Item Value Reference Range Interpretation Comments BUN (test code = BUN) 10 7-22 [facility]2021-06-06 08:47:00 Test Item Value Reference Range Interpretation Comments Creatinine Lvl (test code = Creatinine 0.62 0.50-1.40 Lvl) [facility]2021-06-06 08:47:00 Test Item Value Reference Range Interpretation Comments Sodium Lvl (test code = Sodium Lvl) 136 135-145 [facility]2021-06-06 08:47:00 Test Item Value Reference Range Interpretation Comments Potassium Lvl (test code = Potassium 4.0 3.5-5.1 Lvl) [facility]2021-06-06 08:47:00 Test Item Value Reference Range Interpretation Comments Chloride Lvl (test code = Chloride Lvl) 105 95-109 [facility]2021-06-06 08:47:00 Test Item Value Reference Range Interpretation Comments CO2 (test code = CO2) 27 24-32 [place] 316991-06-06 08:47:00 Test Item Value Reference Range Interpretation Comments Calcium Lvl (test code = Calcium Lvl) 8.3 8.5-10.5 [place] [address]-06-06 08:47:00 Test Item Value Reference Range Interpretation Comments AGAP (test code = AGAP) 8.0 10.0-20.0 [place] 316991-06-06 08:47:00 Test Item Value Reference Range Interpretation Comments eGFR (test code = eGFR) 108 [place] 316991-06-06 08:47:00 Test Item Value Reference Range Interpretation Comments Phosphorus (test code = Phosphorus) 2.2 2.5-4.5 [place] 671241-06-06 08:47:00 Test Item Value Reference Range Interpretation Comments Segs (test code = Segs) 68.5 45.0-75.0 [place] 671241-06-06 08:47:00 Test Item Value Reference Range Interpretation Comments Lymphocytes (test code = Lymphocytes) 18.5 20.0-40.0 [place] 671241-06-06 08:47:00 Test Item Value Reference Range Interpretation Comments Monocytes (test code = Monocytes) 12.8 2.0-12.0 [place] 671241-06-06 08:47:00 Test Item Value Reference Range Interpretation Comments Basophils (test code = 0.2 See_Comment [Aut omated message] The Basophils) system which ge nerated this result tra nsmitted reference range : <=1.0. The reference r halle was not used to int erpret this result as normal/abnormal . [place] 671241-06-06 08:47:00 Test Item Value Reference Range Interpretation Comments Neutrophils # (test code = Neutrophils 5.6 1.5-8.1 #) [place] 671241-06-06 08:47:00 Test Item Value Reference Range Interpretation Comments Lymphocytes # (test code = Lymphocytes 1.5 1.0-5.5 #) [place] 671241-06-06 08:47:00 Test Item Value Reference Range Interpretation Comments Monocytes # (test code 1.0 See_Comment [Aut omated message] The = Monocytes #) system which generated this result tra nsmitted reference range : <=0.8. The reference r halle was not used to int erpret this result as normal/abnormal . [facility] ClubBbkcxbcORVVANIECL2332-64-26 08:47:00 Test Item Value Reference Range Interpretation Comments WBC (test code = WBC) 8.1 3.7-10.4 [place] 671241-06-06 08:47:00 Test Item Value Reference Range Interpretation Comments RBC (test code = RBC) 2.27 4.70-6.10 [facility] ClubZxipataNWMOMXXYLU1124-76-53 08:47:00 Test Item Value Reference Range Interpretation Comments Hgb (test code = Hgb) 7.7 14.0-18.0 [place] 671241-06-06 08:47:00 Test Item Value Reference Range Interpretation Comments Hct (test code = Hct) 21.8 42.0-54.0 [place] 671241-06-06 08:47:00 Test Item Value Reference Range Interpretation Comments MCV (test code = MCV) 96.2 80.0-94.0 [place] 671241-06-06 08:47:00 Test Item Value Reference Range Interpretation Comments MCH (test code = MCH) 34.0 pg 27.0-31.0 [facility] ClubVbciftoAWYBUJIIFE8056-53-55 08:47:00 Test Item Value Reference Range Interpretation Comments MCHC (test code = MCHC) 35.3 32.0-36.0 [place] 671241-06-06 08:47:00 Test Item Value Reference Range Interpretation Comments RDW (test code = RDW) 14.2 11.5-14.5 [place] 671241-06-06 08:47:00 Test Item Value Reference Range Interpretation Comments Platelet (test code = Platelet) 244 133-450 [facility] ClubHtcaabjUGGHZABGKM1869-11-33 08:47:00 Test Item Value Reference Range Interpretation Comments MPV (test code = MPV) 7.9 7.4-10.4 [facility]2021-06-05 09:22:00 Test Item Value Reference Range Interpretation Comments Vitamin B12 Lvl (test code = Vitamin 455 B12 Lvl) [facility]2021-06-05 09:22:00 Test Item Value Reference Range Interpretation Comments Folate Lvl (test code = Folate Lvl) 5.3 [place] 316991-06-05 09:22:00 Test Item Value Reference Range Interpretation Comments Glucose Lvl (test code = Glucose Lvl) 111 70-99 [place] 316991-06-05 09:22:00 Test Item Value Reference Range Interpretation Comments BUN (test code = BUN) 12 7-22 [place] 316991-06-05 09:22:00 Test Item Value Reference Range Interpretation Comments Creatinine Lvl (test code = Creatinine 0.55 0.50-1.40 Lvl) [place] 316991-06-05 09:22:00 Test Item Value Reference Range Interpretation Comments Sodium Lvl (test code = Sodium Lvl) 139 135-145 [place] 316991-06-05 09:22:00 Test Item Value Reference Range Interpretation Comments Potassium Lvl (test code = Potassium 4.2 3.5-5.1 Lvl) [place] 316991-06-05 09:22:00 Test Item Value Reference Range Interpretation Comments Chloride Lvl (test code = Chloride Lvl) 109 95-109 [facility]2021-06-05 09:22:00 Test Item Value Reference Range Interpretation Comments CO2 (test code = CO2) 24 24-32 [facility]2021-06-05 09:22:00 Test Item Value Reference Range Interpretation Comments Calcium Lvl (test code = Calcium Lvl) 8.7 8.5-10.5 [place] 316991-06-05 09:22:00 Test Item Value Reference Range Interpretation Comments AGAP (test code = AGAP) 10.2 10.0-20.0 [place] 316991-06-05 09:22:00 Test Item Value Reference Range Interpretation Comments eGFR (test code = eGFR) 113 [facility]2021-06-05 09:22:00 Test Item Value Reference Range Interpretation Comments Phosphorus (test code = Phosphorus) 2.0 2.5-4.5 [place] 316991-06-05 09:22:00 Test Item Value Reference Range Interpretation Comments Magnesium Lvl (test code = Magnesium 2.4 1.8-2.4 Lvl) [facility] ClubXxrduruTHTAHVIQPE1270-35-78 09:22:00 Test Item Value Reference Range Interpretation Comments WBC (test code = WBC) 7.7 3.7-10.4 [place] 671241-06-05 09:22:00 Test Item Value Reference Range Interpretation Comments RBC (test code = RBC) 3.46 4.70-6.10 [place] 671241-06-05 09:22:00 Test Item Value Reference Range Interpretation Comments Hgb (test code = Hgb) 11.4 14.0-18.0 [place] 671241-06-05 09:22:00 Test Item Value Reference Range Interpretation Comments Hct (test code = Hct) 33.2 42.0-54.0 [place] 671241-06-05 09:22:00 Test Item Value Reference Range Interpretation Comments MCV (test code = MCV) 96.0 80.0-94.0 [place] 671241-06-05 09:22:00 Test Item Value Reference Range Interpretation Comments MCH (test code = MCH) 33.1 pg 27.0-31.0 [place] 671241-06-05 09:22:00 Test Item Value Reference Range Interpretation Comments MCHC (test code = MCHC) 34.5 32.0-36.0 [place] 671241-06-05 09:22:00 Test Item Value Reference Range Interpretation Comments RDW (test code = RDW) 14.3 11.5-14.5 [place] 671241-06-05 09:22:00 Test Item Value Reference Range Interpretation Comments Platelet (test code = Platelet) 280 133-450 [place] 671241-06-05 09:22:00 Test Item Value Reference Range Interpretation Comments MPV (test code = MPV) 8.1 7.4-10.4 [place] [address]-06-05 09:22:00 Test Item Value Reference Range Interpretation Comments PTT (test code = PTT) 34.7 s 22.9-35.8 [place] 671241-06-05 09:22:00 Test Item Value Reference Range Interpretation Comments PT (test code = PT) 15.2 s 12.0-14.7 [place] 671241-06-05 09:22:00 Test Item Value Reference Range Interpretation Comments INR (test code = INR) 1.22 1 0.85-1.17 [place] 671241-06-05 09:22:00 Test Item Value Reference Range Interpretation Comments Segs (test code = Segs) 50.7 45.0-75.0 [place] 671241-06-05 09:22:00 Test Item Value Reference Range Interpretation Comments Lymphocytes (test code = Lymphocytes) 34.2 20.0-40.0 [place] 671241-06-05 09:22:00 Test Item Value Reference Range Interpretation Comments Monocytes (test code = Monocytes) 13.9 2.0-12.0 [place] 671241-06-05 09:22:00 Test Item Value Reference Range Interpretation Comments Eosinophils (test code = 0.7 See_Comment [A utomated message] The Eosinophils) system which ge nerated this result tra nsmitted reference range : <=4.0. The reference r halle was not used to int erpret this result as normal/abnormal . [facility] ClubHlkpiomZLSVYJDKPF4814-04-74 09:22:00 Test Item Value Reference Range Interpretation Comments Basophils (test code = 0.5 See_Comment [Aut omated message] The Basophils) system which ge nerated this result tra nsmitted reference range : <=1.0. The reference r halle was not used to int erpret this result as normal/abnormal . [place] 671241-06-05 09:22:00 Test Item Value Reference Range Interpretation Comments Neutrophils # (test code = Neutrophils 3.9 1.5-8.1 #) [place] 671241-06-05 09:22:00 Test Item Value Reference Range Interpretation Comments Lymphocytes # (test code = Lymphocytes 2.6 1.0-5.5 #) [place] 671241-06-05 09:22:00 Test Item Value Reference Range Interpretation Comments Monocytes # (test code 1.1 See_Comment [Aut omated message] The = Monocytes #) system which generated this result tra nsmitted reference range : <=0.8. The reference r halle was not used to int erpret this result as normal/abnormal . [place] 671241-06-05 09:22:00 Test Item Value Reference Range Interpretation Comments Eosinophils # (test code 0.1 See_Comment [A utomated message] The = Eosinophils #) system [employer] generated this result tra nsmitted reference range : <=0.5. The reference r halle was not used to int erpret this result as normal/abnormal . [facility] YsxopjyYTJSKQGCRN9831-63-27 20:43:00 Test Item Value Reference Range Interpretation Comments Coronavirus (COVID-19) Not Detected (12/15/20 BONNIE (test code = 3:43 PM) Coronavirus (COVID-19) BONNIE) [facility] [employer] [id number] 20:25:00 Test Item Value Reference Range Interpretation Comments ABO/Rh (test code = ABO/Rh) O POS [facility] [employer] [id number] 20:25:00 Test Item Value Reference Range Interpretation Comments Antibody Scrn (test Negative (12/15/20 3:25 code = Antibody Scrn) PM) [facility]2021-06-04 20:10:00 Test Item Value Reference Range Interpretation Comments Glucose Lvl (test code = Glucose Lvl) 127 70-99 [facility] [employer]2021-06-04 20:10:00 Test Item Value Reference Range Interpretation Comments BUN (test code = BUN) 11 7-22 [facility]2021-06-04 20:10:00 Test Item Value Reference Range Interpretation Comments Creatinine Lvl (test code = Creatinine 0.63 0.50-1.40 Lvl) [facility]2021-06-04 20:10:00 Test Item Value Reference Range Interpretation Comments Sodium Lvl (test code = Sodium Lvl) 138 135-145 [facility] [employer]2021-06-04 20:10:00 Test Item Value Reference Range Interpretation Comments Potassium Lvl (test code = Potassium 4.5 3.5-5.1 Lvl) [facility]2021-06-04 20:10:00 Test Item Value Reference Range Interpretation Comments Chloride Lvl (test code = Chloride Lvl) 110 95-109 [facility] [employer]2021-06-04 20:10:00 Test Item Value Reference Range Interpretation Comments CO2 (test code = CO2) 21 24-32 [facility] [employer]2021-06-04 20:10:00 Test Item Value Reference Range Interpretation Comments Calcium Lvl (test code = Calcium Lvl) 8.6 8.5-10.5 [facility] [id number] 20:10:00 Test Item Value Reference Range Interpretation Comments Total Protein (test code = Total 7.2 6.4-8.4 Protein) [facility]2021-06-04 20:10:00 Test Item Value Reference Range Interpretation Comments Albumin Lvl (test code = Albumin Lvl) 3.2 3.5-5.0 [facility] [id number] 20:10:00 Test Item Value Reference Range Interpretation Comments ALANINE AMINOTRANSFERASE 32 See_Comment [A utomated message] (test code = ALANINE The sys tem which AMINOTRANSFERASE) generated this result transmitted ref erence range: <=65. Th e reference range was not used to int erpret this result as normal/abnormal . [facility] [id number] 20:10:00 Test Item Value Reference Range Interpretation Comments ASPARTATE TRANSAMINASE 38 See_Comment [Aut omated message] (test code = ASPARTATE The s ystem which TRANSAMINASE) generated this result transmitted ref erence range: <=37. Th e reference range was not used to interpr et this result as normal/abnormal . [facility] [id number] 20:10:00 Test Item Value Reference Range Interpretation Comments Alk Phos (test code = Alk Phos) 45 39-136 [facility] [id number] 20:10:00 Test Item Value Reference Range Interpretation Comments Bili Total (test code = Bili Total) 1.2 0.2-1.3 [facility] [id number] 20:10:00 Test Item Value Reference Range Interpretation Comments AGAP (test code = AGAP) 11.5 10.0-20.0 [facility] [id number] 20:10:00 Test Item Value Reference Range Interpretation Comments B/C Ratio (test code = B/C Ratio) 17 1 6-25 [facility] [id number] 20:10:00 Test Item Value Reference Range Interpretation Comments Globulin (test code = Globulin) 4.0 2.7-4.2 [facility] [id number] 20:10:00 Test Item Value Reference Range Interpretation Comments A/G Ratio (test code = A/G Ratio) 0.8 1 0.7-1.6 [facility]2021-06-04 20:10:00 Test Item Value Reference Range Interpretation Comments eGFR (test code = eGFR) 107 [facility] ClubSlxeojsCOMCDCCMMA1038-99-61 20:10:00 Test Item Value Reference Range Interpretation Comments WBC X 10x3 (test code = WBC X 10x3) 8.3 3.7-10.4 [facility] ClubUraygmyQMKCGBXZQW9689-08-74 20:10:00 Test Item Value Reference Range Interpretation Comments RBC X 10x6 (test code = RBC X 10x6) 4.01 4.70-6.10 [facility] ClubMsgyroaLPPBXAASNI5352-04-64 20:10:00 Test Item Value Reference Range Interpretation Comments MCV (test code = MCV) 96.6 80.0-94.0 [facility] ClubGoheymbMNGUTHLJXN6785-96-85 20:10:00 Test Item Value Reference Range Interpretation Comments MCH (test code = MCH) 32.2 pg 27.0-31.0 [facility] ClubQafpfmoYZGZAHEWLC1972-10-76 20:10:00 Test Item Value Reference Range Interpretation Comments MCHC (test code = MCHC) 33.3 32.0-36.0 [facility] ClubBxqidlmNGCHKVBKJT3407-20-33 20:10:00 Test Item Value Reference Range Interpretation Comments RDW (test code = RDW) 14.3 11.5-14.5 [facility] ClubNncrunyYVEHYHETPD6066-87-59 20:10:00 Test Item Value Reference Range Interpretation Comments Platelet (test code = Platelet) 330 133-450 [facility] ClubMifujqoTKZTLJXIOE1135-71-41 20:10:00 Test Item Value Reference Range Interpretation Comments MPV (test code = MPV) 8.2 7.4-10.4 [facility] ClubPsecwkrYPMVBFCBIF4861-59-56 20:10:00 Test Item Value Reference Range Interpretation Comments PT (test code = PT) 13.3 s 12.0-14.7 [place] 671241-06-04 20:10:00 Test Item Value Reference Range Interpretation Comments INR (test code = INR) 1.02 1 0.85-1.17 [facility] ClubTaoaaoxGJLCCGITZF9624-20-48 20:10:00 Test Item Value Reference Range Interpretation Comments PTT (test code = PTT) 30.9 s 22.9-35.8 [place] 671241-06-04 20:10:00 Test Item Value Reference Range Interpretation Comments Segs (test code = Segs) 73.4 45.0-75.0 [facility] ClubAkdnurxLGQKDKIMBN8216-19-96 20:10:00 Test Item Value Reference Range Interpretation Comments Lymphocytes (test code = Lymphocytes) 14.5 20.0-40.0 [facility] ClubHueyblfEHUPQZTNGO7003-99-24 20:10:00 Test Item Value Reference Range Interpretation Comments Monocytes (test code = Monocytes) 11.8 2.0-12.0 [place]1241-06-04 20:10:00 Test Item Value Reference Range Interpretation Comments Basophils (test code = 0.3 See_Comment [Aut omated message] The Basophils) system which ge nerated this result tra nsmitted reference range : <=1.0. The reference r halle was not used to int erpret this result as normal/abnormal . [facility] ClubTihlcmkQBFUJOSJNT8878-01-37 20:10:00 Test Item Value Reference Range Interpretation Comments Neutrophils # (test code = Neutrophils 6.1 1.5-8.1 #) [facility] ClubDoywiqoGWAOAJNGWN8227-17-29 20:10:00 Test Item Value Reference Range Interpretation Comments Lymphocytes # (test code = Lymphocytes 1.2 1.0-5.5 #) [facility] ClubEqqvxqcTTMMWMFGWD6225-96-30 20:10:00 Test Item Value Reference Range Interpretation Comments Monocytes # (test code 1.0 See_Comment [Aut omated message] The = Monocytes #) system which generated this result tra nsmitted reference range : <=0.8. The reference r halle was not used to int erpret this result as normal/abnormal . [facility] [id number] 17:25:00 Test Item Value Reference Range Interpretation Comments eGFR (test code = eGFR) 128 [facility]2019-02-19 17:25:00 Test Item Value Reference Range Interpretation Comments POC Creatinine (test code = POC 0.6 0.5-1.4 Creatinine) [facility]2017-12-05 16:16:00 Test Item Value Reference Range Interpretation Comments eGFR (test code = eGFR) [id number] 16:16:00 Test Item Value Reference Range Interpretation Comments POC Creatinine (test code = POC 0.7 0.5-1.4 Creatinine) [facility]2017-11-13 16:20:00 Test Item Value Reference Range Interpretation Comments eGFR (test code = eGFR) 120 [facility]2017-11-13 16:20:00 Test Item Value Reference Range Interpretation Comments Creatinine Lvl (test code = Creatinine 0.71 0.50-1.40 Lvl) [facility]2015-10-12 15:06:00 Test Item Value Reference Range Interpretation Comments Creatinine Lvl (test code = Creatinine 0.8 0.5-1.4 Lvl) [facility]2015-10-12 15:06:00 Test Item Value Reference Range Interpretation Comments eGFR (test code = eGFR) 116 [facility]2014-10-20 15:35:00 Test Item Value Reference Range Interpretation Comments Creatinine Lvl (test code = Creatinine 0.7 0.5-1.4 Lvl) [facility]2014-10-20 15:35:00 Test Item Value Reference Range Interpretation Comments eGFR (test code = eGFR) 124 [id number] 14:45:00 Test Item Value Reference Range Interpretation Comments eGFR (test code = eGFR) 125 [id number] 14:45:00 Test Item Value Reference Range Interpretation Comments Creatinine Lvl (test code = Creatinine 0.7 0.5-1.4 N Lvl) [id number] 14:45:00 Test Item Value Reference Range Interpretation Comments PSA (test code = PSA) 1.12 See_Comment N [Auto mated message] The system which ge nerated this result transmit ricardo reference range : <=4.00. The reference r halle was not used to interpr et this result as chris l/abnormal. [id number] 21:19:00 Test Item Value Reference Range Interpretation Comments PSA (test code = PSA) 0.82 See_Comment N [Auto mated message] The system which ge nerated this result transmit ricardo reference range : <=4.00. The reference r halle was not used to interpr et this result as chris l/abnormal. [id number] 21:19:00 Test Item Value Reference Range Interpretation Comments Total CK (test code = Total CK) 620 12-191 H [facility]
[2022-11-26] MEDS ORDERED: PANTOPRAZOLE INJ 80 MG in NA CHLORIDE 0.9% 250 ML IV ONE (12:00)
[2022-11-26] MEDS ORDERED: PANTOPRAZOLE 40 MG INJ ONE (12:03)
[2022-11-26] MEDS ORDERED: ONDANSETRON 4 MG/2 ML VIAL ONE (12:03)
[2022-11-26 12:21] LABS: Absolute Lymphocytes (CBC) 2.8 K/uL (0.7-4.9); Hematocrit 45.4 % (39.6-49.0); MCV 94.9 fL (80-100); MPV 7.4 fL (7.6-11.3); RBC Red Blood Cell Count 4.78 M/uL (4.33-5.43)
[2022-11-26 12:40] LABS: Albumin 3.6 g/dL (3.4-5.0); Bilirubin Total 0.7 mg/dL (0.2-1.0); Potassium 3.7 mEq/L (3.5-5.1); Protein, Total 8.6 g/dL (6.4-8.2)
--- NOTE | 2022-11-26 13:01 | RAD REPORT ---
EXAM DESCRIPTION: CTAbdomen Pelvis W Contrast - 11/26/2022 12:52 pm CLINICAL HISTORY: Abdominal pain. Abd pain;Nausea / vomiting COMPARISON: Abdomen Pelvis W Contrast dated 09/04/2019 TECHNIQUE: Biphasic CT imaging of the abdomen and pelvis was performed with 100 ml non-ionic IV cont rast. All CT scans are performed using dose optimization technique as appropriate and may include automated exposure control or mA/KV adjustment according to patient size. FINDINGS: The lung bases are clear.Several air cysts seen in the right lower lung. The liver, spleen, pancreas, adrenal glands and kidneys are within normal limits. No bowel obstruction, free air, free fluid or abscess. Significant stool is retained throughout the c olon. The appendix is normal. No evidence of significant lymphadenopathy. Thickened and slightly irregular urinary bladder is present. This probably is related to a degree of chronic bladder outlet obstruction. Extensive hardware and posttraumatic changes in the pelvis and lumbar spine. IMPRESSION: No acute intra-abdominal or pelvic finding. Moderately severe fecal retention.
--- NOTE | 2022-11-26 13:14 | EDPHYS ---
Physician Documentation [facility] Name: Rogelio Pringle Age: 61 yrs Sex: Male : 1960 Arrival Date: 11/26/2022 Time: 11:31 Bed 18 Private MD: ED Physician Luisito Monson HPI: 11/26 12:06 This 61 yrs old Black Male presents to ER via Wheelchair with complaints of Abdominal rn Pain, Vomited Blood. 12:06 The patient presents to the emergency department vomiting blood, a small amount, bright rn red, 2 times since symptom onset. Onset: The symptoms/episode began/occurred this morning. Abdominal pain: described as crampy, intermittent, located in the epigastric area, that does not radiate. Modifying factors: The symptoms are alleviated by nothing, the symptoms are aggravated by nothing. Associated signs and symptoms: Pertinent positives: dizziness when standing, vomiting, Pertinent negatives: diarrhea. Severity of symptoms: At their worst the symptoms were mild in the emergency department the symptoms are unchanged. The patient has not experienced similar symptoms in the past. The patient has not recently seen a physician. Pt reports threw up blood this morning x 2. Has not had a bowel movement. Reports daily heartburn and only treats with rolaids. Never had a problem with ulcer or GI bleed.No blood thinners. . Historical: - Allergies: 11:44 Sulfa (Sulfonamide Antibiotics); nj1 - PMHx: 11:44 chronic pain in BLE; High Cholesterol; Hypertension; paraplegic s/p back injury; nj1 - PSHx: 11:44 hip and back SX; nj1 - Immunization history:: Client reports receiving the 2nd dose of the Covid vaccine. - Social history:: Smoking status: Patient reports the use of cigarette tobacco products, denies chronic smoking, but will smoke occasionally. - Family history:: not pertinent. - Hospitalizations: : No recent hospitalization is reported. ROS: 12:06 Constitutional: Negative for fever, chills, and weight loss, Neck: Negative for injury, rn pain, and swelling, Cardiovascular: Negative for chest pain, palpitations, and edema, Respiratory: Negative for shortness of breath, cough, wheezing, and pleuritic chest pain, Abdomen/GI: + upper abd pain and vomiting blood Back: Negative for injury and pain, MS/Extremity: Negative for injury and deformity, Skin: Negative for injury, rash, and discoloration, Neuro: + generalized weakness. Exam: 12:06 Constitutional: This is a well developed, well nourished patient who is awake, alert, rn and in no acute distress. Eyes: Normal conjunctivae Cardiovascular: Regular rate and rhythm. No pulse deficits. Respiratory: No increased work of breathing, no retractions or nasal flaring. Abdomen/GI: Soft, mild epigastric tenderness, no rebound Skin: Warm, dry MS/ Extremity: Pulses equal, no cyanosis Neuro: Awake and alert, GCS 15 13:40 ECG was reviewed by the Attending Physician. rn Vital Signs: 11:39 BP 148 / 84; Pulse 92; Resp 18; Temp 98.2(TE); Pulse Ox 98% on R/A; Weight 72.57 kg; nj1 Height 5 ft. 8 in. ; Pain 0/10; 13:00 BP 147 / 79; Pulse 85; Resp 18; Pulse Ox 98% ; bp 14:19 BP 120 / 97; Pulse 79; Resp 16; Pulse Ox 98% ; bp 20:13 BP 110 / 65; Pulse 78; Resp 20; Temp 98.5; Pulse Ox 96% on R/A; aa9 11:39 Body Mass Index 24.33 (72.57 kg, 172.72 cm) nj1 11:39 Pain Scale: Adult nj1 MDM: 11:44 Patient medically screened. rn 13:11 Differential diagnosis: gastritis, varices, gastric ulcer, UGIB, dany-denson. Data rn reviewed: vital signs, nurses notes, lab test result(s), radiologic studies, CT scan, and as a result, I will admit patient. Consideration of Admission/Observation Patient was admitted/placed on observation. Escalation of care including admission/observation considered. Counseling: I had a detailed discussion with the patient and/or guardian regarding: the historical points, exam findings, and any diagnostic results supporting the discharge/admit diagnosis, lab results, radiology results, the need for further work-up and treatment in the hospital. Response to treatment: the patient's symptoms have markedly improved after treatment, and as a result, I will admit patient. 13:11 ED course: No episodes of hematemesis here, ct without acute findings, stable vitals, rn normal H/H, will admit to hospitalist for GI consultation as just started bleeding today. . 14:29 Management of patient was discussed with the following: Credit Collections Clerk: Spoke with Dr. mona Anna's [employer] SETUP OPERATOR for GI consultation, aware of consult, is in a procedure now, will contact Dr. Zhong later. . 11/26 11:51 Order name: CBC with Diff; Complete Time: 12:58 rn 11/26 11:51 Order name: CMP; Complete Time: 12:58 rn 11/26 11:51 Order name: Lipase; Complete Time: 12:58 rn 11/26 11:51 Order name: Type And Screen; Complete Time: 12:58 rn 11/26 16:42 Order name: Phosphorus; Complete Time: 16:42 EDMS 11/26 16:42 Order name: Magnesium; Complete Time: 16:42 EDMS 11/26 11:51 Order name: CT Abd/Pelvis - IV Contrast Only; Complete Time: 13:06 rn 11/26 11:51 Order name: EKG; Complete Time: 11:52 rn 11/26 11:51 Order name: IV Saline Lock; Complete Time: 12:35 rn 11/26 11:51 Order name: Labs collected and sent; Complete Time: 12:35 rn 11/26 11:51 Order name: EKG - Nurse/Tech; Complete Time: 12:34 rn 11/26 11:51 Order name: NPO; Complete Time: 11:52 rn EC:40 Rate is 83 beats/min. Rhythm is regular. QRS [place] is Normal. [place] interval is normal. QRS rn interval is normal. QT interval is normal. No Q waves. T waves are Normal. No ST changes noted. Clinical impression: Normal ECG. Interpreted by me. Reviewed by me. Administered Medications: 12:15 Drug: Ondansetron IVP 4 mg Route: IVP; Site: right antecubital; bp 20:31 Follow up: Response: No adverse reaction aa9 12:15 Drug: Pantoprazole IVP 40 mg Route: IVP; Site: right antecubital; bp 20:31 Follow up: Response: No adverse reaction aa9 12:15 Drug: Pantoprazole IV 8 mg/hr Route: IV; Rate: 25 ml/hr; Site: right antecubital; bp 20:31 Follow up: IV Status: Infusion continued upon admission aa9 Disposition Summary: 11/26/22 13:12 Hospitalization Ordered Hospitalization Status: Observation rn Provider: Jose Zhong rn Location: Telemetry/MedSurg (observation) rn Condition: Stable rn Problem: new rn Symptoms: have improved rn Bed/Room Type: Standard rn Room Assignment: 412(11/26/22 20:06) Diagnosis - Hematemesis rn Forms: - Medication Reconciliation Form rn - SBAR form rn Signatures: Dispatcher [employer] EDMS Luisito Monson MD MD rn Garcia, Cindy, RN RN cg Peltier, Brian RN Taniya Desir RN RN elvin1 La Sanchez RN aa9 Corrections: (The following items were deleted from the chart) 20:06 13:12 rn cg
--- NOTE | 2022-11-26 13:14 | ER ---
Nurse's Notes [facility] Name: Rogelio Pringle Age: 61 yrs Sex: Male : 1960 Arrival Date: 11/26/2022 Time: 11:31 Bed 18 Private MD: Diagnosis: Hematemesis Presentation: 11/26 11:39 Chief complaint: Patient states: Abdominal pain on/off for a couple months. Worse at nj1 around 4-5am, feels like burning, pt has to get up and drink some water that seems to help. Pt concerned because this morning pt actually vomited and there was some bright red blood in it. Coronavirus screen: Vaccine status: Patient reports receiving the 2nd dose of the covid vaccine. Ebola Screen: Patient denies travel to an Ebola-affected area in the 21 days before illness onset. Initial Sepsis Screen: Does the patient meet any 2 criteria? No. Patient's initial sepsis screen is negative. Does the patient have a suspected source of infection? No. Patient's initial sepsis screen is negative. Risk Assessment: Do you want to hurt yourself or someone else? Patient reports no desire to harm self or others. Onset of symptoms was September 11, 2022. 11:39 Method Of Arrival: Wheelchair banner 11:39 Acuity: ROSA 3 nj1 Triage Assessment: 11:45 General: Appears in no apparent distress. comfortable, Behavior is calm, cooperative, bp appropriate for age. Pain: Denies pain. EENT: No deficits noted. Neuro: No deficits noted. Cardiovascular: No deficits noted. Respiratory: No deficits noted. GI: Reports nausea, vomiting. : No deficits noted. Derm: No deficits noted. Musculoskeletal: No deficits noted. Historical: - Allergies: 11:44 Sulfa (Sulfonamide Antibiotics); nj1 - PMHx: 11:44 chronic pain in BLE; High Cholesterol; Hypertension; paraplegic s/p back injury; nj1 - PSHx: 11:44 hip and back SX; nj1 - Immunization history:: Client reports receiving the 2nd dose of the Covid vaccine. - Social history:: Smoking status: Patient reports the use of cigarette tobacco products, denies chronic smoking, but will smoke occasionally. - Family history:: not pertinent. - Hospitalizations: : No recent hospitalization is reported. Screenin:45 [facility] ED Fall Risk Assessment (Adult) History of falling in the last 3 months, bp including since admission No falls in past 3 months (0 pts). Abuse screen: Denies threats or abuse. Denies injuries from another. Nutritional screening: No deficits noted. Tuberculosis screening: No symptoms or risk factors identified. Assessment: 11:45 General: SEE TRIAGE NOTE. bp 13:00 Reassessment: No changes from previously documented assessment. Patient and/or family bp updated on plan of care and expected duration. Pain level reassessed. 14:20 Reassessment: ADMIT INITIATED. bp 20:17 Reassessment: Patient appears in no apparent distress at this time. Patient and/or aa9 family updated on plan of care and expected duration. Pain level reassessed. Patient is alert, oriented x 3, equal unlabored respirations, skin warm/dry/pink. 20:18 Reassessment: attempted to call report. aa9 20:27 Reassessment: report provided to aa9 Vital Signs: 11:39 BP 148 / 84; Pulse 92; Resp 18; Temp 98.2(TE); Pulse Ox 98% on R/A; Weight 72.57 kg; nj1 Height 5 ft. 8 in. ; Pain 0/10; 13:00 BP 147 / 79; Pulse 85; Resp 18; Pulse Ox 98% ; bp 14:19 BP 120 / 97; Pulse 79; Resp 16; Pulse Ox 98% ; bp 20:13 BP 110 / 65; Pulse 78; Resp 20; Temp 98.5; Pulse Ox 96% on R/A; aa9 11:39 Body Mass Index 24.33 (72.57 kg, 172.72 cm) nj1 11:39 Pain Scale: Adult nj1 ED Course: 11:32 Patient arrived in ED. rg4 11:44 Triage completed. nj1 11:44 Luisito Monson MD is Attending Physician. rn 11:45 Patient has correct armband on for positive identification. Bed in low position. Call bp light in reach. Side rails up X2. 11:45 Inserted saline lock: 20 gauge in right forearm, using aseptic technique. Blood bp collected. 11:49 Arm band placed on left wrist. nj1 11:51 Constantino Reeder, PANCHITO is Primary Nurse. bp 12:54 CT Abd/Pelvis - IV Contrast Only In Process Unspecified. EDMS 13:12 Jose Zhong is Hospitalizing Provider. rn 20:17 No provider procedures requiring assistance completed. Patient admitted, IV remains in aa9 place. Administered Medications: 12:15 Drug: Ondansetron IVP 4 mg Route: IVP; Site: right antecubital; bp 20:31 Follow up: Response: No adverse reaction aa9 12:15 Drug: Pantoprazole IVP 40 mg Route: IVP; Site: right antecubital; bp 20:31 Follow up: Response: No adverse reaction aa9 12:15 Drug: Pantoprazole IV 8 mg/hr Route: IV; Rate: 25 ml/hr; Site: right antecubital; bp 20:31 Follow up: IV Status: Infusion continued upon admission aa9 Medication: 20:17 VIS not applicable for this client. aa9 Outcome: 13:12 Decision to Hospitalize by Provider. rn 20:17 Admitted to Tele accompanied by tech, room 412, with chart. aa9 20:17 Condition: stable 20:17 Instructed on the need for admit. 20:48 Patient left the ED. aa9 Signatures: Dispatcher [employer] EDMS Luisito Monson MD MD rn Garcia, Rubi rg4 Constantino Reeder RN RN bp La Sanchez RN RN aa9 Taniya Campos RN RN nj1
[2022-11-26] MEDS ORDERED: ONDANSETRON 4 MG/2 ML VIAL IV PRN (16:13)
[2022-11-26] MEDS ORDERED: ACETAMINOPHEN 325 MG TABLET PO PRN (16:13)
[2022-11-26] MEDS ORDERED: MORPHINE 4 MG/ML SYR IV PRN (16:13)
--- NOTE | 2022-11-26 16:17 | P.HP ---
Certification for Inpatient Patient admitted to: Inpatient With expected LOS: >2 Midnights Patient will require the following post-hospital care: None Practitioner: I am a practitioner with admitting privileges, knowledge of patient current condition, hospital course, and medical plan of care. Services: Services provided to patient in accordance with Admission requirements found in Title 42 Section 412.3 of the Code of Federal Regulations Patient History Date of Service: 11/26/22 Reason for admission: Hematemesis and abdominal pain. History of Present Illness: Patient is a 61-year-old male with a past medical history significant for hypertension, GERD, paraplegia, chronic pain syndrome who presents with complaint of hematemesis and epigastric pain onset this morning. Patient reported that he has been having acid reflux for quite some time now and has been having temporary relief with Rolaids and Tums. Patient rated epigastric pain as 7/10 in severity and described pain as burning in quality. Patient reported that he self caths. Patient reported associated signs and symptoms of dizziness and nausea. Patient denies any other signs and symptoms. Symptoms are aggravated or relieved by nothing. Patient decided to present to the hospital for medical evaluation. Allergies Sulfa (Sulfonamide Antibiotics) Allergy (Verified 09/04/19 14:27) Hives/Rash - Past Medical/Surgical History -: GERD -: Paraplegia -: Chronic pain syndrome -: Hypertension -: Hyperlipidemia Past Surgical History: Reviewed- Non-Contributory -: Hip and back surgery. - Social History Smoking Status: Current every day smoker Counseled patient to stop smoking for: less than 10 minutes Smoking therapy provided: Yes Patient receptive to therapy: No Alcohol use: Yes CD- Drugs: No Caffeine use: Yes Place of Residence: Home Review of Systems General: Unremarkable Eyes: Unremarkable ENT: Unremarkable Respiratory: Unremarkable Cardiovascular: Unremarkable Gastrointestinal: Nausea, Vomiting, Abdominal Pain, Other (Hematemesis) Genitourinary: Other (Self-catheterization) Musculoskeletal: Other (Chronic pain syndrome) Integumentary: Unremarkable Neurological: Other (Dizziness) Physical Examination - Physical Exam General: Alert, In no apparent distress, Oriented x3, Cooperative HEENT: Atraumatic, PERRLA, Mucous membr. moist/pink, EOMI, Sclerae nonicteric Neck: Supple, 2+ carotid pulse no bruit, No LAD, Without JVD or thyroid abnormality Respiratory: Clear to auscultation bilaterally, Normal air movement Cardiovascular: No edema, Regular rate/rhythm, Normal S1 S2 Capillary refill: <2 Seconds Gastrointestinal: Normal bowel sounds, Tenderness Musculoskeletal: No clubbing, No tenderness Integumentary: No rashes, No breakdown, No significant lesion Neurological: Normal speech, Normal tone, Normal affect, Abnormal gait, Abnormal strength Lymphatics: No axilla or inguinal lymphadenopathy - Studies Laboratory Data (last 24 hrs) 11/26/22 12:10: Sodium 134 L, Potassium 3.7, BUN 10, Creatinine 0.74, Glucose 121 H, Total Bilirubin 0.7, AST 22, ALT 34, Alkaline Phosphatase 75, Lipase 25 11/26/22 12:10: WBC 6.60, Hgb 15.1, Hct 45.4, Plt Count 367 Assessment and Plan - Plan --Gastrointestinal bleeding. H&H stable--15.1/45.4. Gastroenterology consulted. Patient placed on Protonix drip. We will await further recommendation from GI MD. --Constipation. CT abdomen indicates Moderately severe fecal retention. Patient placed on laxatives. Continue supportive care. --Chronic pain syndrome. We will manage pain with current pain medication regimen. --Paraplegia. Status post back injury. Patient self-catheterizes. Continue supportive care. --GERD. Continue Protonix drip. --Nicotine dependence. Patient counseled on tobacco cessation. Refuses nicotine patch. --Hypophosphatemia. Replete as needed. Will reassess levels in a.m. --Hyperlipidemia. Continue home medication. --DVT prophylaxis with SCDs Discharge Plan: Home Plan to discharge in: Greater than 2 days - Advance Directives Does patient have a Living Will: No Does patient have a Durable POA for Healthcare: No - Code Status/Comfort Care Code Status Assessed: Yes Physician Review: Patient Assessed, Agree with Above Assessment and Plan Critical Care: No
[2022-11-26 16:41] LABS: Magnesium 2.3 mg/dL (1.6-2.4); Phosphorus 2.3 mg/dL (2.5-4.9)
[2022-11-26] MEDS: PANTOPRAZOLE INJ 80 MG in NA CHLORIDE 0.9% 250 ML IV SCH (17:00)
[2022-11-26] MEDS: LACTULOSE 20 GM/30 ML UCUP PO SCH (21:00)
[2022-11-26 21:24] VITALS: BMI 24.3
[2022-11-26] MEDS: POTASS/SODIUM PHOSPHATE 1 PKT POWD.PACK PO SCH ×3 (21:29→23:25)
[2022-11-26] MEDS ORDERED: MELATONIN 5 MG TABLET PO PRN (22:44)
[2022-11-26 23:38] VITALS: O2SAT 99
[2022-11-26 23:48] LABS: MCV 95.1 fL (80-100); MPV 7.4 fL (7.6-11.3); RBC Red Blood Cell Count 4.63 M/uL (4.33-5.43)
[2022-11-27] MEDS: PANTOPRAZOLE INJ 80 MG in NA CHLORIDE 0.9% 250 ML IV SCH (03:00)
[2022-11-27] MEDS ORDERED: GABAPENTIN 400 MG CAP PO PRN (05:13)
[2022-11-27 06:25] LABS: Absolute Lymphocytes (CBC) 2.8 K/uL (0.7-4.9); Hematocrit 45.7 % (39.6-49.0); Lymphocytes % 40.5 % (15.3-44.8); MCV 95.5 fL (80-100); MPV 7.6 fL (7.6-11.3); RBC Red Blood Cell Count 4.78 M/uL (4.33-5.43)
[2022-11-27 06:42] LABS: Albumin 3.6 g/dL (3.4-5.0); Bilirubin Total 1.4 mg/dL (0.2-1.0); Phosphorus 2.7 mg/dL (2.5-4.9); Potassium 3.6 mEq/L (3.5-5.1); Protein, Total 8.3 g/dL (6.4-8.2)
--- NOTE | 2022-11-27 08:17 | P.DS ---
Admission Date: 11/26/22 Discharge Date: 11/27/22 Disposition: ROUTINE DISCHARGE Discharge Condition: GOOD Reason for Admission: Hematemesis and abdominal pain. Consultations: 1. Gastroenterology Hospital Course: DIAGNOSES: # Hematemesis - suspect Viral Gastroenteritis with Bindu-Walton Tear - resolved # Possible Self-Catheter Associated Urinary Tract Infection - POA # Gastroesophageal Reflux Disease # Paraplegia complicated by Neurogenic Bowel/Bladder (Self-Catheterizes) # Chronic Pain Syndrome # Hyperlipidemia # Tobacco Use Disorder HOSPITAL COURSE: Mr. Rogelio Pringle is a pleasant 61 year old male with a past medical history significant for paraplegia complicated by neurogenic bowel and bladder, chronic pain syndrome, gastroesophageal reflux disease, and hyperlipidemia who was admitted to the [facility] on 11/26/2022 for abdominal pain, nausea, vomiting, and hematemesis. He was admitted to the Medicine service. Upon further evaluation, his hemoglobin counts were stable. Gastroenterology was consulted and Dr. Anna was notified. He has not had any recurrent episodes of nausea/vomiting since admission. Dr. Anna recommended that he be discharged home this morning. He is planning for an outpatient esophagogastroduodenoscopy tomorrow in his clinic. Mr. Pringle verbalized understanding and agreed to make this follow-up appointment. Dr. Anna stated that he will also follow-up on the hyperbilirubinemia as an outpatient. Incidentally, his urinalysis returned with 2+ nitrite, 10-20 WBCs, 20-50 bacteria. It is unclear if this is colonization or a true urinary tract infection given that he has no urinary symptoms. He was given an empiric course of cefdinir on discharge. On 11/27/2022, he was seen on morning rounds and deemed medically stable for discharge. He was discharged with instructions to schedule follow-up appointments with his PCP (JORGE Marcos) and with Gastroenterology (Dr. Anna). He was provided a prescription for cefdinir. He was given the opportunity to ask questions and reported no further questions. Furthermore, all questions were answered to the best of my ability. A copy of this discharge summary will be sent to the above providers to facilitate continuity of care. Today, I personally spent 25 minutes on his case, of which greater than 50% of the time was spent in patient education, counseling, and coordination of care as described above. Vital Signs/Physical Exam: Temp Pulse Resp BP Pulse Ox 97.6 F 85 19 136/79 98 11/27/22 04:00 11/27/22 04:00 11/27/22 04:00 11/27/22 04:00 11/27/22 04:00 General: Alert, In no apparent distress, Oriented x3 HEENT: Atraumatic, Mucous membr. moist/pink, Sclerae nonicteric Neck: JVD not distended Respiratory: Clear to auscultation bilaterally, Normal air movement Cardiovascular: No edema, Regular rate/rhythm, Normal S1 S2, No gallops, No rubs, No murmurs Gastrointestinal: Normal bowel sounds, Soft and benign, Non-distended, No tenderness, No rebound, No guarding Musculoskeletal: No clubbing Integumentary: No rashes Neurological: Normal speech, Normal affect Laboratory Data at Discharge: WBC 7.00 thou/uL (4.3-10.9) 11/27/22 05:20 Hgb 15.2 g/dL (13.6-17.9) 11/27/22 05:20 Hct 45.7 % (39.6-49.0) 11/27/22 05:20 Plt Count 341 thou/uL (152-406) 11/27/22 05:20 Sodium 135 mEq/L (136-145) L 11/27/22 05:20 Potassium 3.6 mEq/L (3.5-5.1) 11/27/22 05:20 BUN 5 mg/dL (7-18) L 11/27/22 05:20 Creatinine 0.55 mg/dL (0.70-1.30) L 11/27/22 05:20 Glucose 113 mg/dL (74-106) H 11/27/22 05:20 Phosphorus 2.7 mg/dL (2.5-4.9) 11/27/22 05:20 Magnesium 2.3 mg/dL (1.6-2.4) 11/26/22 12:10 Total Bilirubin 1.4 mg/dL (0.2-1.0) H 11/27/22 05:20 Total Bilirubin Cancelled 11/27/22 05:20 AST 24 U/L (15-37) 11/27/22 05:20 ALT 30 U/L (16-61) 11/27/22 05:20 Alkaline Phosphatase 66 U/L (45-117) 11/27/22 05:20 Lipase 25 U/L (13-75) 11/26/22 12:10 Home Medications: Amlodipine [Norvasc*] 5 mg PO BID 11/26/22 Enalapril Maleate 20 mg PO BID 11/26/22 Gabapentin 400 mg PO BID 11/26/22 Pravastatin [Pravachol*] 20 mg PO DAILY 11/26/22 Pantoprazole Sodium 40 mg PO BID #60 tab 11/27/22 cephALEXin [Cephalexin] 500 mg PO BID 5 Days #10 tab 11/27/22 New Medications: cephALEXin [Cephalexin] 500 mg PO BID 5 Days #10 tab Pantoprazole Sodium 40 mg PO BID #60 tab Physician Discharge Instructions: 1. Please call and schedule a follow-up appointment with your PCP (JORGE Marcos) in 3-5 days 2. Please attend your appointment with Gastroenterology (Dr. Anna) tomorrow (11/28/2022) - He is planning for you to have an upper endoscopy tomorrow Diet: Regular Activity: Ad lucía Followup: Nata Marcos NP [ALLIED HEALTH PROFESSIONAL] - Rio Anna MD [ACTIVE - CAN ADMIT] - Time spent managing pt's care (in minutes): 25
[2022-11-27 08:39] LABS: Specific Gravity 1.008 (1.005-1.030); Urine Bacteria 20-50 /HPF (<20); Urine Bilirubin NEGATIVE (Negative); Urine Blood Negative (Negative); Urine Clarity Clear (Clear); Urine Color Light-Yellow (Yellow); Urine Crystals Unidentified Few /HPF (None Seen); Urine Glucose NEGATIVE (Negative); Urine Protein NEGATIVE (Negative); Urine RBC <5 /HPF (None Seen); Urine Urobilinogen Normal (Normal); Urine pH 6.5 (5.0-7.0)
[2022-11-27 08:40] VITALS: BP 133/77; TEMP 97.7
[2022-11-27] MEDS: LACTULOSE 20 GM/30 ML UCUP PO SCH (08:56)
[2022-11-27] MEDS ORDERED: ENALAPRIL 10 MG TAB PO SCH (09:00)
[2022-11-27] MEDS ORDERED: ATORVASTATIN 10 MG TAB PO SCH (09:00)
[2022-11-27] MEDS ORDERED: AMLODIPINE 10 MG TAB PO SCH (09:00)
--- NOTE | 2022-11-27 11:47 | EKG ---
Test Date: 2022-11-26 Test Time: 12:23:29 Bible Teacher: KADIE MEASUREMENT RESULTS: Intervals: Rate: 83 AR: 238 QRSD: 74 QT: 334 QTc: 392 [place]: P: 71 AR: 238 QRS: 7 T: 60 INTERPRETIVE STATEMENTS: Sinus rhythm with 1st degree AV block Otherwise normal ECG Compared to ECG 12/19/2003 07:42:00 First degree AV block now present Early repolarization no longer present Electronically Signed On 11-27-22 11:44:51 CDT by Reid Ivory
== END 2022-11-27 10:45 | disposition home or self-care (01) ==
LOC: ER 11:31 → INTOOBSV 16:08 → ERHOLD 16:08 → 4TH 20:15
PROVIDERS: ADMIT Internal Medicine; ATTEND Internal Medicine
DX: K92.2 Gastrointestinal hemorrhage, unspecified (principal); K21.9 Gastro-esophageal reflux disease without esophagitis; I10 Essential (primary) hypertension; G82.20 Paraplegia, unspecified; G89.4 Chronic pain syndrome; R10.13 Epigastric pain; K59.00 Constipation, unspecified; F17.210 Nicotine dependence, cigarettes, uncomplicated; E78.5 Hyperlipidemia, unspecified; E83.39 Other disorders of phosphorus metabolism; Z88.2 Allergy status to sulfonamides
CPT/HCPCS: 96365; 93005; 87088; 85025 ×2; 81001; 87086; 36415; 86900; 83735; 86850; 84100 ×2; 86901; 82248; 85027; 83690; 80053 ×2; 74177; 94760; 96375; 99285; 96366; Q9967; C9113 ×4; J2405; J7050 ×3; G0378